=== PATIENT | female | born 1980 | race Caucasian/White ===

== ENCOUNTER 2023-06-12 12:59 | Outpatient (OUT) | payer OTHER, SELFPAY ==
[2023-06-12 14:11] LABS: HCG Quantitative <1 mIU/mL
[2023-06-12 14:24] LABS: Basophils Percent Auto 0.4 % (0.2-2.0); Eosinophils Absolute Auto 0.3 10^3/uL (0.0-0.7); Hematocrit 42.6 % (36.0-48.0); Hemoglobin 13.5 g/dL (12.0-16.0); Immature Granulocytes Abs Auto 0.05 10^3/uL (0.00-0.03); Immature Granulocytes Pct Auto 0.6 % (0.0-0.5); Lymphocytes Absolute Auto 2.1 10^3/uL (1.2-3.8); Lymphocytes Percent Auto 25.6 % (20.5-60.0); Mean Corpuscular HGB Conc 31.7 g/dL (29.9-35.2); Mean Corpuscular Hemoglobin 28.3 pg (26.7-34.0); Mean Corpuscular Volume 89.3 fL (81.0-99.0); Mean Platelet Volume 9.9 fL (9.5-13.5); Monocytes Absolute Auto 0.5 10^3/uL (0.3-0.8); Monocytes Percent Auto 6.3 % (1.7-12.0); Neutrophils Absolute Auto 5.2 10^3/uL (1.4-6.5); Neutrophils Percent Auto 63.1 % (43.0-75.0); Platelet Count 353 10^3/uL (150-450); Red Blood Count 4.77 10^6/uL (4.20-5.40); Red Cell Distribution Width 12.3 % (11.0-15.0); White Blood Count 8.3 10^3/uL (4.0-11.0)
[2023-06-12 15:03] LABS: Estimated Average Glucose 97 mg/dL
[2023-06-12 15:38] LABS: Free T4 1.13 ng/dL (0.76-1.46)
[2023-06-13 05:08] LABS: FSH 9.6 mIU/mL (.); Luteinizing Hormone(LH) 9.3 mIU/mL (.)
[2023-06-17 02:17] LABS: DHEA, Serum 302 ng/dL (31-701)
== END 2023-06-12 13:00 | disposition home or self-care (01) ==
PROVIDERS: Visit Provider Obstetrics & Gynecology
DX: E28.2 Polycystic ovarian syndrome (principal); N93.9 Abnormal uterine and vaginal bleeding, unspecified
CPT/HCPCS: 36415; 82626; 82627; 83001; 83002; 83036; 84439; 84443; 84702; 85025

== ENCOUNTER 2023-07-03 | Outpatient (REF) | payer OTHER, SELFPAY ==
--- OUTSIDE RECORDS SUMMARY | 2023-07-10 10:08 | XMS_ITS | CCD ---
Author Name Unknown Address [facility] [place] [address] Organization [facility] Care Team Providers Care Transition Coach Name Role Phone RAY ., DR TREVINO Admitting UnavailMichela Doll, DR TREVINO Attending Unavailabl e REQUEST, DR TRAORE LISTED Primary Care Unavaila rodolfo BELL ., DR TREVINO Consulting Unavailabl KARLA Jang Attending Unavailable Unavailable Primary Care Provider Unavailabl e Medications Current Medications Medication Drug Class(es) Dates Sig (Normalized) Sig (Original) Ethinyl Estradiol / Levonorgestrel (2 sources) Progestin, Estrogen, Progestin-containing Intrauterine Device take 1 tablet by mouth in the morning Setlakin 0.15-0.03 MG tablet Take 1 tablet by mouth in the morning. 0 Active Problems Problem Classification Problem Date Documented Date Episodic/Chronic Immunizations and screening for infectious disease (1 source) Encounter for screening for human papillomavirus (HPV); Translations: [ENC SCREENING HUMAN PAPILLOMAVIRUS] Onset: 06-29-2022 Episodic Other endocrine disorders (2 sources) Polycystic ovary syndrome; Translations: [Polycystic ovarian syndrome] 06-10-2023 Chronic Other female genital disorders (2 sources) Abnormal uterine bleeding; Translations: [Abnormal uterine and vaginal bleeding, unspecified] 06-06-2023 Chronic Other screening for suspected conditions (not mental disorders or infectious disease) (4 sources) Encounter for screening for malignant neoplasm of cervix; Translations: [ENC SCREENING MALIG NEOPLASM CERV] Onset: 06-26-2022 Episodic Results Test Name Value Interpretation Reference Range Facil ity PAP ACOG PANEL 2: 30 to 65on 07-02-2022 . . Normal [facility] Comment on above: Result Comment: Performed at: [facility] Performed By: #### [id number] #### [facility] [address] [place] [address] Dr. Rhoda Graves Age Gdln ACOG Testing 30-65 Normal [facility] Comment on above: Performed By: #### [id number] #### [facility] [address] [place] [address] Dr. Rhoda Graves DIAGNOSIS: Comment Normal [facility] Comment on above: Result Comment: NEGATIVE FOR INTRAEPITHE LIAL LESION OR MALIGNANCY. Performed at: [facility] Performed By: #### [id number] #### [facility] [address] [place] [address] Dr. Rhoda Graves HPV Aptima Negative Normal Negative [facility] Comment on above: Result Comment: This nucleic acid amplif ication test detects fourteen high-risk HPV types (16,18,31,33,35,39,45,51,52,56,58,59,66,68) without differentiation. Performed at: =G Performed By: #### [id number] #### [facility] [address] [place] [address] Dr. Rhoda Graves HPV Genotype Reflex Comment Normal [facility] Comment on above: Result Comment: Criteria not met, HPV Ge notype not performed. Performed at: [facility] Performed By: #### [id number] #### [facility] [address] [place] [address] Dr. Rhoda Graves Methodology: Comment Normal [facility] Comment on above: Result Comment: This liquid based ThinPr ep(R) pap test was screened with the use of an image guided system. Performed at: [facility] Performed By: #### [id number] #### [facility] [address] [place] [address] Dr. Rhoda Graves Note: Comment Normal [facility] Comment on above: Result Comment: The Pap smear is a scree christina test designed to aid in the detection of premalignant and malignant conditions of the uterine cervix. It is not a diagnostic procedure and should not be used as the sole means of detecting cervical cancer. Both false-positive and false-negative reports do occur. . Performed at: [facility] Performed By: #### [id number] #### [facility] [address] [place] [address] Dr. Rhoda Graves Performed by: Comment Normal [facility] Comment on above: Result Comment: Maricel Lazote chnologist (ASCP) Performed at: [facility] Performed By: #### [id number] #### [facility] [address] [address] [address] Rhoda Graves Specimen adequacy: Comment Normal [facility] Comment on above: Result Comment: Satisfactory for evaluat ion. Endocervical and/or squamous metaplastic cells (endocervical component) are present. Performed at: [facility] Performed By: #### [id number] #### [facility] [address] [address] [address] Rhoda Graves Cytology Cervical or vaginal smear or scraping studyon 06-26-2022 [facility] Vital Signs Date Time Vital Sign Value Performing Clinician Faci lity 06-10-2023 16:31-0500 Body mass index (BMI) [Ratio] 25.55 kg/m2 Karla Steven DO Work Phone: [facility] 06-10-2023 16:31-0500 Body weight 78.47 kg Karla Steven DO Work Phone: [facility] 06-10-2023 16:31-0500 Diastolic blood pressure 80 mm[Hg] Karla Steven DO Work Phone: [facility] 06-10-2023 16:31-0500 Systolic blood pressure 138 mm[Hg] Karla Steven DO Work Phone: [facility] Healthcare Encounters Encounter Date Encounter Type Care Provider Facility Start: 06-10-2023 End: 06-10-2023 ambulatory KARLA STEVEN Not Available Start: 06-10-2023 End: 06-10-2023 Office outpatient visit 15 minutes Karla Steven DO Work Phone: [facility] Comment on above: Abnormal uterine ble eding (AUB); PCOS (polycystic ovarian syndrome) Start: 06-26-2022 End: 06-26-[address] BELINDA BELL . Facility: Procedures Date Procedure Procedure Detail Performing Clinician Start: 06-26-2022 Cytp cerv/vag auto 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 Mary MARIE Work Phone: Plan of Treatment Date Care Activity Detail Author Start: 08-07-2023 End: 08-07-2023 Patient encounter procedure 08/07/2023 4:00 PM EDT Office Visit [facility] [address] [place] [address] [place] [id number] Karla Harris, DO [address] [place], [place] [id number] [facility] Start: 07-03-2023 End: 07-03-2023 Patient encounter procedure 07/03/2023 3:30 PM EST Procedure Visit [facility] [address] [place], [place] [address] [address] Karla Harris, DO [address] [place], [place] [id number] [facility] Start: 07-03-2023 End: 07-03-2023 Professional / ancillary services management 07/03/2023 2:30 PM EST Ancillary Procedure [facility] [address] [facility] [place] [address] [facility] Start: 06-10-2023 End: 06-10-2024 DHEA DHEA Lab Routine PCOS (polycystic ovarian syndrome) Expected: 06/10/2023 (Approximate), Expires: 06/10/2024 [facility] Comment on above: Expected: 06/10/2023 (Approximate), Expires: 06/10/2024 Start: 06-10-2023 End: 06-10-2024 US for US PELVIS-TRANSVAG IF INDICATED Imaging Routine PCOS (polycystic ovarian syndrome) Expected: 06/10/2023 (Approximate), Expires: 06/10/2024 [facility] Comment on above: Expected: 06/10/2023 (Approximate), Expires: 06/10/2024 CBC W Auto Different ial panel - Blood CBC and differential Lab Routine PCOS (polycystic ovarian syndrome) Ordered: 06/10/2023 [facility] Comment on above: Ordered: 06/10/2023 DHEA-sulfate DHEA-sulfate Lab Routine PCOS (polycystic ovarian syndrome) Ordered: 06/10/2023 [facility] Comment on above: Ordered: 06/10/2023 Follicle stimulating hormone Follicle stimulating hormone Lab Routine PCOS (polycystic ovarian syndrome) Ordered: 06/10/2023 [facility] Comment on above: Ordered: 06/10/2023 hCG, quantitative, hCG, quantitative, Lab Routine PCOS (polycystic ovarian syndrome) Ordered: 06/10/2023 [facility] Work Phone: Comment on above: Ordered: 06/10/2023 Hemoglobin A1c measurement Hemoglobin A1c Lab Routine Abnormal uterine bleeding (AUB) PCOS (polycystic ovarian syndrome) Ordered: 06/10/2023 [facility] Comment on above: Ordered: 06/10/2023 Luteinizing hormone Luteinizing hormone Lab Routine PCOS (polycystic ovarian syndrome) Ordered: 06/10/2023 [facility] Comment on above: Ordered: 06/10/2023 Thyrotropin [Units/volume] in Serum or Plasma TSH Lab Routine PCOS (polycystic ovarian syndrome) Ordered: 06/10/2023 [facility] Comment on above: Ordered: 06/10/2023 Thyroxine (T4) free [Mass/volume] in Serum or Plasma T4, free Lab Routine PCOS (polycystic ovarian syndrome) Ordered: 06/10/2023 [facility] Comment on above: Ordered: 06/10/2023 Payers Date Payer Category Payer Unknown [employer] [id number] 2023-Present [phone] [address] [address] [place] [address] [id number] 1980 Unknown [id number] 1980 Unknown [id number] 1961 Unknown [id number] Social History Date Type Detail Facility Start: 05-20-2023 Tobacco smoking stat [facility] Never smoked tobacco [facility] Start: 06-10-2023 Alcohol intake Current drinke r of alcohol (finding) [facility] Start: 06-10-2023 History of Social function [facility] Start: 06-10-2023 Tobacco use panel [facility] Start: 05-20-2023 Alcohol Comment Occasional alcohol u se [facility] Start: 1980 Sex Assigned At Not on file [facility] History of Present illness Narrative 06-10-2023 Lachelle Mercedeschristin, AJITH - 06/10/2023 3:50 PM EST Note Date & Type Note Facility 06-10-2023 History of Presen t illness Narrative Reason for Appointment: Patient ID: Prema oJrge is a 42 y.o. female who presents for Irregular cycles Patient presents today for Consult appointment. Current Medications: has a current medication list which includes the following prescription(s): setlakin. Medical History: Active Ambulatory Problems Diagnosis Date Noted No Active Ambulatory Problems Resolved Ambulatory Problems Diagnosis Date Noted No Resolved Ambulatory Problems Past Medical History: Diagnosis Date Abnormal mammogram of right breast BMI 25.0-25.9,adult Breast cancer screening by mammogram Encounter for gynecological examination (general) (routine) without abnormal findings Family History Problem Relation Name Age of Onset Hypertension Father Hyperlipidemia Father Social History Tobacco Use Smoking status: Never Smokeless tobacco: Not on file Substance Use Topics Alcohol use: Yes Comment: Occasional alcohol use Drug use: Never History reviewed. No pertinent surgical history. No Known Allergies Review of Systems: Review of Systems All other systems reviewed and are negative. Objective Physical Exam Constitutional: Appearance: Normal appearance. She is well-developed. Cardiovascular: Rate and Rhythm: Normal rate and regular rhythm. Pulmonary: Effort: Pulmonary effort is normal. Breath sounds: Normal breath sounds. Abdominal: General: Bowel sounds are normal. There is no distension. Palpations: Abdomen is soft. Tenderness: There is no abdominal tenderness. There is no guarding or rebound. Musculoskeletal: General: No swelling. Normal range of motion. Right lower leg: No edema. Left lower leg: No edema. Neurological: Mental Status: She is alert and oriented to person, place, and time. Skin: General: Skin is warm and dry. Psychiatric: Mood and Affect: Mood normal. Behavior: Behavior normal. Vitals and nursing note reviewed. Exam conducted with a campaign coordinator present. Vitals: Estimated body mass index is 25.55 kg/m as calculated from the following: Height as of 06/26/22: 5' 9 . Weight as of this encounter: 173 lb. BP: 138/80 Patient's last menstrual period was 06/07/2023 (exact date). Assessment/Plan Encounter Diagnoses Name Primary? Abnormal uterine bleeding (AUB) PCOS (polycystic ovarian syndrome) Patient presents for appointment to discuss abnormal uterine bleeding. Discussed patient obtaining US and labs. Patient to have endometrial biopsy obtained as well. Patient to schedule appointment prior to leaving office to setup US and Endo Bx. Will discuss further management after results are back. Documented by Lachelle Vincent LPN on behalf of: Karla Harris DO documented in this encounter [facility] Evaluation note Note Date & Type Note Facility Evaluation note Diagnosis Abnormal uterine bleeding (AUB) PCOS (polycystic ovarian syndrome) Polycystic ovaries documented in this encounter [facility] Summary Purpose Family History No Family History Records FoundNo Family History Records Found Advance Directives No Advanced Directives Records FoundNo Advanced Directives Records Found Additional Source Comments INFORMATION SOURCE (unrecogn ized section and content) DATE CREATED AUTHOR 07/03/2022 [facility] DATE CREATED AUTHOR AUTHOR'S ORGANIZ ATION 06/11/2023 [facility] [employer] Reason for Visit (unrecogniz ed section and content) Reason Comments Irregular cycles FOR RECORDS PERTAINING TO PATIENTS WHO ARE OR HAVE BEEN ENROLLED IN A CHEMICAL DEPENDENCY/SUBSTANCEABUSE PROGRAM, SOME INFORMATION MAY BE OMITTED. This clinical summary was aggregated from multiple sources. Caution should be exercised in using it in the provision of clinical care. This summary normalizes information from multiple sources, and as a consequence, information in this document may materially change the coding, format and clinical context of patient data. In addition, data may be omitted in some cases. CLINICAL DECISIONS SHOULD BE BASED ON THE PRIMARY CLINICAL RECORDS. [employer] provides no warranty or guarantee of the accuracy or completeness of information in this document.
== END 2023-07-03 00:01 ==
LOC: LAB
PROVIDERS: Visit Provider Obstetrics & Gynecology
DX: N92.6 Irregular menstruation, unspecified (principal)
CPT/HCPCS: 88305

== ENCOUNTER 2023-07-03 14:18 | Outpatient (OUT) | payer OTHER, SELFPAY ==
--- NOTE | 2023-07-03 14:26 | US_ITS ---
[address] [address] Patient Name: PREMA MOREIRA MRN: [id number] date: 1980 Sex: F Assigned Patient Location: [facility] Current Patient Location: [facility] Accession/Order Number: [id number] Exam Date: 07/03/2023 14:25 Report Date: 07/03/2023 15:23 At the request of: KARLA COLEMAN Procedure: US pelvis w/ transvaginal EXAMINATION: US pelvis w/ transvaginal HISTORY: HEAVY BLEEDING AND IRREGULAR PERIODS COMPARISON: No relevant comparison available. TECHNIQUE: Transabdominal and/or transvaginal sonographic examination was performed as indicated by examination type. FINDINGS: UTERUS: Slightly heterogeneous echotexture. Normal size and contour. Uterus size: 7. 63.6 x 4.5 cm ENDOMETRIUM: Normal homogeneous appearance. Endometrial thickness: 5 mm RIGHT OVARY: Normal size and appearance. Duplex Doppler demonstrates normal waveform and flow; resistive index 0.5. Ovary size: 2.3 x 1.9 x 2.6 cm LEFT OVARY: Contains a 3.6 cm complex cysts versus hypoechoic mass. Duplex Doppler demonstrates normal waveform and flow; resistive index 0.6. Ovary size: 2.7 x 2.4 x 3.6 cm CUL-DE-SAC: Unremarkable. No significant free fluid. BLADDER: Unremarkable. OTHER: None. US/US pelvis w/ transvaginal IMPRESSION: 1. Slightly heterogeneous uterine myometrium of questionable clinical significance. 2. Normal appearance of endometrium. 3. Left ovarian complex cyst versus mass. Complex/hemorrhagic cyst is favored. Consider follow-up ultrasound evaluation in 6 weeks to document regression. Electronically authenticated by: TICO SIMS Date: 07/03/2023 15:23
== END 2023-07-03 14:19 | disposition home or self-care (01) ==
LOC: NOMS 14:18
PROVIDERS: Visit Provider Obstetrics & Gynecology
DX: E28.2 Polycystic ovarian syndrome (principal)
CPT/HCPCS: 76830; 76856

== ENCOUNTER 2023-08-07 20:12 | Outpatient (REF) | payer OTHER, SELFPAY ==
--- OUTSIDE RECORDS SUMMARY | 2023-08-07 20:16 | XMS_ITS | CCD ---
Author Organization [facility] Care Team Providers Care Territory Manager Name Role Phone RAY ., DR TREVINO Admitting Millicent Doll, DR TREVINO Attending Unavailabl e REQUEST, DR TRAORE LISTED Primary Care Unavaila ble RAY Doll, DR TREVINO Consulting Unavailabl e Unavailable Primary Care Provider KARLA Adams Attending Unavailable KARLA HARRIS Attending Unavailable Medications Current Medications Medication Drug Class(es) Dates [...] to 63on 07-02-2022 . . Normal [facility] Comment on above: Result Comment: Performed at: [facility] Performed By: #### [id number] #### [facility] [address] [place] [address] Dr. Rhoda Graves Age Gdln ACOG Testing 30-65 Normal [facility] Comment on above: Performed By: #### [id number] #### [facility] [address] [address] [address] Rhoda Graves DIAGNOSIS: Comment Normal [facility] Comment on above: Result Comment: NEGATIVE FOR INTRAEPITHE LIAL LESION OR MALIGNANCY. Performed at: [facility] Performed By: #### [id number] #### [facility] [address] [place] [address] Dr. Rhoda Graves HPV Aptima Negative Normal Negative [facility] Comment on above: Result Comment: This nucleic acid amplif ication test detects fourteen high-risk HPV types (16,18,31,33,35,39,45,51,52,56,58,59,66,68) without differentiation. Performed at: =G Performed By: #### [id number] #### [facility] [address] [place] [address] Dr. Rhoda Graves HPV Genotype Reflex Comment Normal [facility] Comment on above: Result Comment: Criteria not met, HPV Ge notype not performed. Performed at: [facility] Performed By: #### [id number] #### [facility] [address] [place] [address] Dr. Rhoda Graves Methodology: Comment Normal [facility] Comment on above: Result Comment: This liquid based ThinPr ep(R) pap test was screened with the use of an image guided system. Performed at: [facility] Performed By: #### [id number] #### [facility] [address] [place] [address] Dr. Rhoda Graves Note: Comment Normal [facility] Comment on above: Result Comment: The Pap smear is a scree christina test designed to aid in the detection of premalignant and malignant conditions of the uterine cervix. It is not a diagnostic procedure and should not be used as the sole means of detecting cervical cancer. Both false-positive and false-negative reports do occur. . Performed at: [facility] Performed By: #### [id number] #### [facility] [address] [address] [address] Rhoda Graves Performed by: Comment Normal [facility] Comment on above: Result Comment: Olu Herrera Cytote chnologist (ASCP) Performed at: [facility] Performed By: #### [id number] #### [facility] [address] [address] [address] Rhoda Graves Specimen adequacy: Comment Normal [facility] Comment on above: Result Comment: Satisfactory for evaluat ion. Endocervical and/or squamous metaplastic cells (endocervical component) are present. Performed at: [facility] Performed By: #### [id number] #### [facility] [address] [address] [address] Rhoda Graves Cytology Cervical or vaginal smear or scraping studyon 06-26-2022 [facility] Healthcar e Vital Signs Date Time Vital Sign Value Performing Clinician Faci lity 06-10-2023 16:31-0500 Body mass index (BMI) [Ratio] 25.55 kg/m2 Karla Steven DO Work Phone: [facility] Healthcare 06-10-2023 16:31-0500 Body weight 78.47 kg Karla Steven DO Work Phone: [facility] 06-10-2023 16:31-0500 Diastolic blood pressure 80 mm[Hg] Karla Steven DO Work Phone: [facility] 06-10-2023 16:31-0500 Systolic blood pressure 138 mm[Hg] Karla Steven DO Work Phone: [facility] Encounters Encounter Date Encounter Type Care Provider Facility Start: 07-03-2023 End: 07-03-2023 ambulatory KARLA STEVEN Not Available Start: 06-10-2023 End: 06-10-2023 ambulatory KARLA STEVEN Not Available Start: 06-10-2023 End: 06-10-2023 Office outpatient visit 15 minutes Karla Steven DO Work Phone: [facility] Comment on above: Abnormal uterine [...] procedure 08/07/2023 4:00 PM EDT Office Visit [facility] [address] [place] [address] Karla Harris, DO [address], [place] [id number] [facility] Start: 07-03-2023 End: 07-03-2023 Patient encounter procedure 07/03/2023 3:30 PM EST Procedure Visit [facility] [address] [address] Karla Harris, DO [address], [facility] Start: 07-03-2023 End: 07-03-2023 Professional / ancillary services management 07/03/2023 2:30 PM EST Ancillary Procedure [facility] [address] [address] [facility] Start: 06-10-2023 End: 06-10-2024 DHEA DHEA Lab Routine PCOS (polycystic ovarian syndrome) Expected: 06/10/2023 (Approximate), Expires: 06/10/2024 [facility] Comment on above: Expected: 06/10/2023 (Approximate), Expires: 06/10/2024 Start: 06-10-2023 End: 06-10-2024 US for US PELVIS-TRANSVAG IF INDICATED Imaging Routine PCOS (polycystic ovarian syndrome) Expected: 06/10/2023 (Approximate), Expires: 06/10/2024 [facility] Comment on above: Expected: 06/10/2023 (Approximate), Expires: 06/10/2024 CBC W Auto Different ial panel - Blood CBC and differential Lab Routine PCOS (polycystic ovarian syndrome) Ordered: 06/10/2023 [facility] Comment on above: Ordered: 06/10/2023 DHEA-sulfate DHEA-sulfate Lab Routine PCOS (polycystic ovarian syndrome) Ordered: 06/10/2023 [facility] Comment on above: Ordered: 06/10/2023 Follicle stimulating hormone Follicle stimulating hormone Lab Routine PCOS (polycystic ovarian syndrome) Ordered: 06/10/2023 [facility] Comment on above: Ordered: 06/10/2023 hCG, quantitative, hCG, quantitative, Lab Routine PCOS (polycystic ovarian syndrome) Ordered: 06/10/2023 [facility] Work Phone: Comment on above: Ordered: 06/10/2023 Hemoglobin A1c measurement Hemoglobin A1c Lab Routine Abnormal uterine bleeding (AUB) PCOS (polycystic ovarian syndrome) Ordered: 06/10/2023 [facility] Comment on above: Ordered: 06/10/2023 Luteinizing hormone Luteinizing hormone Lab Routine PCOS (polycystic ovarian syndrome) Ordered: 06/10/2023 [facility] Comment on above: Ordered: 06/10/2023 Thyrotropin [Units/volume] in Serum or Plasma TSH Lab Routine PCOS (polycystic ovarian syndrome) Ordered: 06/10/2023 [facility] Comment on above: Ordered: 06/10/2023 Thyroxine (T4) free [Mass/volume] in Serum or Plasma T4, free Lab Routine PCOS (polycystic ovarian syndrome) Ordered: 06/10/2023 [facility] Comment on above: Ordered: 06/10/2023 Payers Date Payer Category Payer Unknown [employer] [id number] 2023-Present [phone] [address] [address] [place] [address] [id number] 1980 Unknown [id number] 1978 Unknown [id number] 1978 Unknown [id number] 1959 Unknown [id number] Social History Date Type Detail Facility Start: 05-20-[address] [facility] Never smoked tobacco [facility] Start: 06-10-2023 Alcohol intake Current drinke r of alcohol (finding) [facility] Start: 06-10-2023 History of Social function [facility] Start: 06-10-2023 Tobacco use panel [facility] Start: 05-20-2023 Alcohol Comment Occasional alcohol u se [facility] Start: 1980 Sex Assigned At Not on file [facility] History of Present illness Narrative 06-10-2023 Lachelle Vincent, CORRUGATED FASTENER DRIVER - 06/10/2023 3:50 PM EST Note Date & Type Note Facility 06-10-2023 History of Presen t illness Narrative Reason for Appointment: Patient ID: Prema Jorge is a 42 y.o. female who presents [...] nursing note reviewed. Exam conducted with a anesthesia director present. Vitals: Estimated body mass index is [...] Karla Harris DO documented in this encounter [facility] Evaluation note Note Date & Type [...] content) DATE CREATED AUTHOR 07/03/2022 [facility] DATE CREATED AUTHOR AUTHOR'S ORGANIZ ATION 07/11/2023 [facility] EPIC Reason for Visit (unrecogniz [...] BE BASED ON THE PRIMARY CLINICAL RECORDS. [facility] [employer] provides no warranty or guarantee of the accuracy or completeness of information in this document.
[2023-08-13 19:07] LABS: Age Gdln ACOG Testing Note (.); HPV Aptima Negative (Negative); IGP, Aptima HPV, rfx 16/18,45 Note (.)
== END 2023-08-07 20:13 | disposition home or self-care (01) ==
LOC: LAB 20:12
PROVIDERS: Visit Provider Obstetrics & Gynecology
DX: Z01.419 Encounter for gynecological examination (general) (routine) without abnormal findings (principal)
CPT/HCPCS: 87624; G0145

== ENCOUNTER 2023-08-14 14:18 | Outpatient (OUT) | payer OTHER, SELFPAY ==
--- NOTE | 2023-08-14 14:19 | US_ITS ---
The [address] [address] Patient Name: PREMA MOREIRA MRN: [id number] date: 1980 Sex: F Assigned Patient Location: [facility] Current Patient Location: [facility] Accession/Order Number: [id number] Exam Date: 08/14/2023 14:19 Report Date: 08/14/2023 15:29 At the request of: KARLA COLEMAN Procedure: US pelvis w/ transvaginal EXAMINATION: US pelvis w/ transvaginal HISTORY: LEFT OVARIAN CYST follow-up COMPARISON: Ultrasound pelvis 07/03/2023 TECHNIQUE: Transabdominal and/or transvaginal sonographic examination was performed as indicated by examination type. FINDINGS: UTERUS: Normal size and appearance. Uterus size: 8.1 x 3.4 x 4.2 cm ENDOMETRIUM: Small 5 x 3 x 2 mm hypoechoic area at anterior junction of endometrium and myometrium, likely blood products since it is new compared to prior study. Endometrial thickness: 7 mm RIGHT OVARY: Normal size and appearance. Duplex Doppler demonstrates normal waveform and flow; resistive index 0.6. Ovary size: 2.6 x 1.6 x 2.4 cm LEFT OVARY: Interval increase in size of the hypoechoic avascular lesion, now 3.3 x 3.1 x 2.2 cm, which could represent complex hemorrhagic cyst or possibly an endometrioma. 2 additional benign-appearing cysts are now present within the ovary, 3.7 cm and 3.3 cm in diameter. Duplex Doppler demonstrates normal waveform and flow; resistive index 0.6. Ovary size: 5.6 x 3.9 x 5.2 cm CUL-DE-SAC: Unremarkable. No significant free fluid. BLADDER: Unremarkable. OTHER: None. US/US pelvis w/ transvaginal IMPRESSION: 1. Interval increase in size of a complex avascular structure within the left ovary suspected represent a hemorrhagic cyst or possible endometrioma. This measures 3.3 cm in diameter on today's study (2.2 cm in maximum diameter on prior study, although this was inadvertently reported as 3.6 cm). Additional follow-up in 6 weeks is recommended to document change versus regression. Electronically authenticated by: TICO SIMS Date: 08/14/2023 15:29
== END 2023-08-14 14:19 | disposition home or self-care (01) ==
LOC: NOMS 14:18
PROVIDERS: Visit Provider Obstetrics & Gynecology
DX: N83.292 Other ovarian cyst, left side (principal)
CPT/HCPCS: 76830; 76856

== ENCOUNTER 2023-11-12 13:21 | Emergency (ER) | payer OTHER, SELFPAY ==
[2023-11-12 13:23] VITALS: BP 147/95; PULSE 101; TEMP 36.7; O2SAT 96; BMI 25.1
--- NOTE | 2023-11-12 13:31 | CT_ITS ---
[address] [address] Patient Name: PREMA MOREIRA MRN: [id number] date: 1980 Sex: F Assigned Patient Location: ER Current Patient Location: Accession/Order Number: [id number] Exam Date: 11/12/2023 14:04 Report Date: 11/12/2023 14:47 At the request of: MARIELY CEDENO Procedure: CT abdomen pelvis w con EXAMINATION: CT abdomen pelvis w con HISTORY: Abdominal pain COMPARISON: No relevant comparison available. TECHNIQUE: Axial, Coronal, and Sagittal images were obtained without and/or with IV contrast as indicated by examination type. Dose reduction techniques were achieved by using automated exposure control and/or adjustment of mA and/or kV according to patient size and/or use of iterative reconstruction technique. FINDINGS: LUNG BASES: Atelectasis versus partial consolidation within posterior right lung base; trace amount within left lung base. LIVER: No enlargement, atrophy, suspicious density, or significant focal lesion. BILIARY: No dilatation or calcification. PANCREAS: No lesion, fluid collection, or abnormal duct dilatation. SPLEEN: No enlargement or focal lesion. ADRENALS: No mass or enlargement. KIDNEYS: Incidental left renal cyst. No mass, obstruction, or calcification. BOWEL/MESENTERY: Fluid-filled loops of small and large bowel without abnormal dilation. Scattered areas of mild wall thickening; lack of distention versus mild inflammatory changes. Fluid-filled appendix without convincing appendicitis. AORTA/VASCULAR: No aneurysm or dissection. RETROPERITONEUM: No mass or adenopathy. LYMPH NODES: No adenopathy. URINARY BLADDER: No visible focal wall thickening, lesion, or calculus. PELVIC ORGANS: Fluid-filled cystic structure within anterior midline pelvis 8.5 x 8.2 x 5.9 cm, likely the previously seen right ovarian cyst. Within the right adnexa is heterogeneous irregular soft tissue with mixed enhancement and what appear to be congested contrast-filled vessels suspicious for ovarian torsion or salpingitis. ABDOMINAL WALL: No mass or hernia. BONES: No bony lesion or fracture. OTHER: Negative. CT/CT abdomen pelvis w con IMPRESSION: 1. Large fluid-filled cystic structure within anterior midline pelvis suspected to be interval enlargement of previously seen right ovarian cyst, now 8.5 cm in diameter. Given the heterogeneous soft tissue within the right adnexa and what appear to be congested vessels, I suspect ovarian torsion or salpingitis.Ultrasound evaluation is recommended. 2. Fluid-filled loops of bowel are suspected to be in response to changes within the pelvis rather than enteritis or mild colitis. 3. Lung base findings are suspected be due to atelectasis rather than infectious infiltrates. Findings discussed with Dr. Jacome via telephone at 2:45 PM. Electronically authenticated by: TICO SIMS Date: 11/12/2023 14:47
--- NOTE | 2023-11-12 13:32 | ED_ITS ---
HPI HPI - General Adult General Chief complaint: Abdominal Pain Stated complaint: ABDOMINAL PAIN Time Seen by Provider: 11/12/23 13:22 Source: patient Mode of arrival: walk-in History of Present Illness HPI narrative: Patient is a 43-year-old female who presents to the emergency department for the evaluation of abdominal pain that began yesterday. She reports multiple areas of the abdomen that are affected. She has not had any objective fever but reports hot and cold chills yesterday. She reports decreased appetite. She has had no nausea or vomiting. No diarrhea. She had a normal bowel movement today. No urinary symptoms. She denies any previous abdominal surgeries. She does not believe she is but states there is a chance. She states her primary concern was to make sure that she does not have appendicitis. Related Data Previous Rx's ?Medication ?Instructions ?Recorded cephalexin 500 mg capsule 500 mg PO Q8H 5 days #15 caps 11/12/23 hydrocodone 5 mg-acetaminophen 325 1 tab PO Q6H PRN pain 5 days #20 11/12/23 mg tablet tabs ketorolac 10 mg tablet 10 mg PO TID PRN pain #10 tabs 11/12/23 ondansetron 4 mg disintegrating 4 mg PO Q6H PRN nausea and 11/12/23 tablet vomiting #12 tabs Allergies Allergy/AdvReac Type Severity Reaction Status Date / Time No Known Drug Allergies Allergy Verified 11/12/23 13:27 Opioid HPI Opioid Management Most Recent Opioid Data: Last JUL Pain Assessment 11/12/23 13:58 Review of Systems ROS Constitutional Reports: chills; Denies: fever Ears, nose, mouth, and throat Denies: throat pain or nasal congestion Cardiovascular Denies: chest pain Respiratory Denies: shortness of breath or cough Gastrointestinal Reports: abdominal pain; Denies: nausea, vomiting or diarrhea Genitourinary Denies: painful urination Musculoskeletal Denies: back pain Integumentary/Breast Denies: rash Hematologic/Lymphatic Denies: easy bruising or easy bleeding Exam Narrative Exam Narrative: Gen.: Awake, alert, in no distress Head: Normocephalic, atraumatic ENT: Moist mucous membranes Respiratory: No respiratory distress, lungs clear bilaterally Cardio: Regular rate and rhythm Gastrointestinal: Abdomen is soft, nondistended and Tender to palpation in the right upper quadrant, left lower quadrant, umbilical abdomen and right lower quadrant with no point tenderness. No rebound Extremities: Moves extremities equally Psych: Normal mood and affect Neuro: No focal neuro deficit Skin: Warm, dry, intact Constitutional Vital Signs, click to edit/add: Last Vital Signs Temp 98.0 F 11/12/23 13:23 Pulse 101 H 11/12/23 13:23 Resp 18 11/12/23 13:23 BP 147/95 H 11/12/23 13:23 Pulse Ox 96 11/12/23 13:23 O2 Del Method Room Air 11/12/23 13:23 Course Vital Signs Vital signs: Vital Signs Temperature 98.0 F 11/12/23 13:23 Pulse Rate 101 H 11/12/23 13:23 Respiratory Rate 18 11/12/23 13:23 Blood Pressure 147/95 H 11/12/23 13:23 Pulse Oximetry 96 11/12/23 13:23 Oxygen Delivery Method Room Air 11/12/23 13:23 Temperature 98.0 F 11/12/23 13:23 Pulse Rate 101 H 11/12/23 13:23 Respiratory Rate 18 11/12/23 13:23 Blood Pressure 147/95 H 11/12/23 13:23 Pulse Oximetry 96 11/12/23 13:23 Oxygen Delivery Method Room Air 11/12/23 13:23 Medical Decision Making MDM Narrative Medical decision making narrative: Patient was medicated with IV Toradol and Levsin with excellent pain control. She does have mild leukocytosis and was found to have a UTI. The remainder of her labs are unremarkable and CT shows a large cystic structure from the right adnexa, radiologist contacted attending physician to relay these results stating that he was concerned the patient may have ovarian torsion versus salpingitis. There is fluid-filled bowel that is felt to be less likely to be enteritis versus colitis and more likely to be pressure from the cystic structure per the radiologist, I discussed this with him directly. Ultrasound shows no evidence of torsion but the patient has a 7 cm cystic mass versus hypovascular mass from the right ovary. I discussed this with Dr. 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 Patient placed on antibiotics for UTI, nausea medication and a short course of analgesics until she would be seen in the office for further evaluation and treatment per gynecology. She is stable at time of reevaluation by attending physician. Return to the ER if symptoms change or worsen SHARED APC VISIT, PHYSICIAN ATTESTATION: [id number] I performed a substantive part of the MDM during the patient?s E/M visit. I personally evaluated and examined the patient. I personally made or approved the documented management plan and acknowledge its risk of complications. Medical Records Medical records reviewed: Yes I reviewed the patient's medical records Lab Data Lab results reviewed: Yes I reviewed the patient's lab results Labs: Lab Results 11/12/23 11/12/23 Range/Units 13:30 14:09 WBC 15.0 H (4.0-11.0) 10^3/uL RBC 4.97 (4.20-5.40) 10^6/uL Hgb 14.2 (12.0-16.0) g/dL Hct 43.9 (36.0-48.0) % MCV 88.3 (81.0-99.0) fL MCH 28.6 (26.7-34.0) pg MCHC 32.3 (29.9-35.2) g/dL RDW 13.2 (11.0-15.0) % Plt Count 277 (150-450) 10^3/uL MPV 10.0 (9.5-13.5) fL Neut % (Auto) 85.1 H (43.0-75.0) % Lymph % (Auto) 8.8 L (20.5-60.0) % [place]he % (Auto) 4.9 (1.7-12.0) % Eos % (Auto) 0.2 L (0.9-7.0) % Baso % (Auto) 0.3 (0.2-2.0) % Neut # (Auto) 12.8 H (1.4-6.5) 10^3/uL Lymph # (Auto) 1.3 (1.2-3.8) 10^3/uL Ashe # (Auto) 0.7 (0.3-0.8) 10^3/uL Eos # (Auto) 0.0 (0.0-0.7) 10^3/uL Baso # (Auto) 0.0 (0.0-0.1) 10^3/uL Abs Immat Gran (auto) 0.11 H (0.00-0.03) 10^3/uL Imm/Tot Granulo (auto) 0.7 H (0.0-0.5) % Sodium 135 L (136-145) mmol/L Potassium 3.3 L (3.5-5.1) mmol/L Chloride 97 L (98-107) mmol/L Carbon Dioxide 26.8 (21.0-32.0) mmol/L Anion Gap 14.5 BUN 11.0 (7.0-18.0) mg/dL Creatinine 0.65 (0.55-1.02) mg/dL Est GFR ( Amer) >60 (>=60) Est GFR (Non-Af Amer) >60 (>=60) BUN/Creatinine Ratio 16.9 Glucose 119 H (74-106) mg/dL Lactate 1.1 (0.4-2.0) mmol/L Calcium 8.9 (8.5-10.1) mg/dL Total Bilirubin 1.0 (0.2-1.0) mg/dL AST 11 L (15-37) U/L ALT 28 (14-59) U/L Alkaline Phosphatase 94 (46-116) U/L Total Protein 8.0 (6.4-8.2) g/dL Albumin 3.6 (3.4-5.0) g/dL Globulin 4.4 g/dL Albumin/Globulin Ratio 0.8 Lipase 68.0 (16.0-77.0) U/L Serum HCG, Qual Negative (NEGATIVE) Urine Color Lt. yellow (YELLOW) Urine Clarity Clear (CLEAR) Urine pH 6.0 (5.0-9.0) Ur Specific [place] 1.010 (1.005-1.025) Urine Protein Negative (NEG/TRACE) mg/dL Urine Glucose (UA) Negative (NEGATIVE) mg/dL Urine Ketones 15 A (NEGATIVE) mg/dL Urine Occult Blood Small A (NEGATIVE) Urine Nitrite Negative (NEGATIVE) Urine Bilirubin Negative (NEGATIVE) Urine Urobilinogen 0.2 (0.2-1.0) EU/dL Ur Leukocyte Esterase Moderate A (NEGATIVE) Urine RBC 2-5 A (0-2) #/HPF Urine WBC 10-20 A (NONE SEEN) #/HPF Ur Squamous Epith Cells Few A (NONE/RARE) #/LPF Urine Crystals None seen (None Seen) #/HPF Urine Bacteria Trace A (NONE SEEN) #/HPF Urine Casts None seen (NONE SEEN) #/LPF Urine Mucus None seen (NONE SEEN) Ur Culture Indicated? Yes Imaging Data CT scan - abdomen: Attestation: I have reviewed the pertinent imaging results. Radiologist's impression: ITS Impressions Abdomen/Pelvis CT 11/12/23 13:31 IMPRESSION: 1. Large fluid-filled cystic structure within anterior midline pelvis suspected to be interval enlargement of previously seen right ovarian cyst, now 8.5 cm in diameter. Given the heterogeneous soft tissue within the right adnexa and what appear to be congested vessels, I suspect ovarian torsion or salpingitis.Ultrasound evaluation is recommended. 2. Fluid-filled loops of bowel are suspected to be in response to changes within the pelvis rather than enteritis or mild colitis. 3. Lung base findings are suspected be due to atelectasis rather than infectious infiltrates. Findings discussed with Dr. Jacome via telephone at 2:45 PM. Electronically authenticated by: TICO SIMS Date: 11/12/2023 14:47 Transvaginal US 11/12/23 14:46 IMPRESSION: 1. No evidence of ovarian torsion, however, there is a large complex cystic structure versus hypovascular mass arising from within the right ovary up to at least 7.0 cm in size. 2. Unremarkable uterus and left ovary. Electronically authenticated by: TICO SIMS Date: 11/12/2023 15:58 Discharge Plan Discharge Stand Alone Forms: Portal Instructions Chief Complaint: Abdominal Pain Clinical Impression: Abdominal pain, UTI (urinary tract infection), Ovarian cyst Patient Disposition: Home, Self-Care Time of Disposition Decision: 16:13 Condition: Good Prescriptions / Home Meds: New cephalexin 500 mg capsule 500 mg PO Q8H 5 Days Qty: 15 0RF hydrocodone-acetaminophen 5-325 mg tablet 1 tab PO Q6H PRN (Reason: pain) 5 Days Qty: 20 0RF Rx Instructions: DX R10.9 ketorolac 10 mg tablet 10 mg PO TID PRN (Reason: pain) Qty: 10 0RF ondansetron 4 mg tablet,disintegrating 4 mg PO Q6H PRN (Reason: nausea and vomiting) Qty: 12 0RF Print Language: Hebrew Instructions: Ovarian Cyst (ED), Urinary Tract Infection in Women (ED), Acute Abdominal Pain (ED) Referrals: Physician,Non-Staff, MD [Primary Care Provider] - 1 week
[2023-11-12 13:41] LABS: Basophils Percent Auto 0.3 % (0.2-2.0); Eosinophils Percent Auto 0.2 % (0.9-7.0); Hematocrit 43.9 % (36.0-48.0); Hemoglobin 14.2 g/dL (12.0-16.0); Immature Granulocytes Abs Auto 0.11 10^3/uL (0.00-0.03); Immature Granulocytes Pct Auto 0.7 % (0.0-0.5); Lymphocytes Absolute Auto 1.3 10^3/uL (1.2-3.8); Lymphocytes Percent Auto 8.8 % (20.5-60.0); Mean Corpuscular HGB Conc 32.3 g/dL (29.9-35.2); Mean Corpuscular Hemoglobin 28.6 pg (26.7-34.0); Mean Corpuscular Volume 88.3 fL (81.0-99.0); Monocytes Absolute Auto 0.7 10^3/uL (0.3-0.8); Monocytes Percent Auto 4.9 % (1.7-12.0); Neutrophils Absolute Auto 12.8 10^3/uL (1.4-6.5); Neutrophils Percent Auto 85.1 % (43.0-75.0); Platelet Count 277 10^3/uL (150-450); Red Blood Count 4.97 10^6/uL (4.20-5.40); Red Cell Distribution Width 13.2 % (11.0-15.0)
[2023-11-12 13:54] LABS: HCG Qualitative NEGATIVE (NEGATIVE); Internal Control Within Normal Limits
[2023-11-12] MEDS: HYOSCYAMINE SULFATE 0.125 MG TAB.SUBL SL (13:58)
[2023-11-12] MEDS: KETOROLAC TROMETHAMINE 30 MG/ML VIAL IVP (13:58)
[2023-11-12 14:02] LABS: Alanine Aminotransferase 28 U/L (14-59); Albumin Globulin Ratio 0.8; Albumin Level 3.6 g/dL (3.4-5.0); Alkaline Phosphatase 94 U/L (46-116); Anion Gap 14.5; Aspartate Amino Transferase 11 U/L (15-37); BUN Creatinine Ratio 16.9; Calcium 8.9 mg/dL (8.5-10.1); Carbon Dioxide 26.8 mmol/L (21.0-32.0); Chloride 97 mmol/L (98-107); Estimated GFR (African America >60 (>=60); Estimated GFR (Non-African Ame >60 (>=60); Globulin 4.4 g/dL; Glucose 119 mg/dL (74-106); Potassium 3.3 mmol/L (3.5-5.1); Sodium 135 mmol/L (136-145)
[2023-11-12 14:06] LABS: Lactate/Lactic Acid 1.1 mmol/L (0.4-2.0)
[2023-11-12 14:18] LABS: Bilirubin Urine NEGATIVE (NEGATIVE); Blood Urine SMALL (NEGATIVE); Clarity Urine CLEAR (CLEAR); Color Urine LT. YELLOW (YELLOW); Glucose Urine UA NEGATIVE (NEGATIVE); Ketones Urine 15 mg/dL (NEGATIVE); Leukocyte Esterase Urine MODERATE (NEGATIVE); Nitrite Urine NEGATIVE (NEGATIVE); Protein Urine NEGATIVE (NEG/TRACE); Urobilinogen Urine 0.2 EU/dL (0.2-1.0)
[2023-11-12 14:19] LABS: Urine Microscopic Indicated YES
[2023-11-12 14:37] LABS: Bacteria Urine TRACE #/HPF (NONE SEEN); Cast Seen? NONE SEEN #/LPF (NONE SEEN); Crystals Seen? None Seen #/HPF (None Seen); Mucus Urine NONE SEEN (NONE SEEN); Squamous Epithelial Cell Urine FEW #/LPF (NONE/RARE); Urine Culture Indicated YES
--- NOTE | 2023-11-12 14:46 | US_ITS ---
[address] [address] Patient Name: PREMA MOREIRA MRN: [id number] date: 1980 Sex: F Assigned Patient Location: ED.MAIN Current Patient Location: ER Accession/Order Number: [id number] Exam Date: 11/12/2023 15:00 Report Date: 11/12/2023 15:58 At the request of: KIMI GASCA Procedure: US pelvis transvaginal EXAMINATION: US pelvis transvaginal HISTORY: Pain, abnormal CT, rule out torsion COMPARISON: CT abdomen pelvis 11/12/2023 TECHNIQUE: Transabdominal and/or transvaginal sonographic examination was performed as indicated by examination type. FINDINGS: UTERUS: Normal size and appearance. Uterus size: 6.9 x 3.8 x 3.0 cm ENDOMETRIUM: Normal homogeneous appearance. Endometrial thickness: 8 mm RIGHT OVARY: Contains a large complex cyst versus hypovascular mass measuring at least 7.0 x 4.6 x 5.6 cm. Surrounding ovarian tissue demonstrates normal arterial and venous blood flow. Duplex Doppler demonstrates normal waveform and flow; resistive index 0.5. Ovary size: 5.9 x 7.9 x 8.1 cm LEFT OVARY: Normal size and appearance. Duplex Doppler demonstrates normal waveform and flow; resistive index 0.4. Ovary size: 5.2 x 4.1 x 3.1 cm CUL-DE-SAC: Unremarkable. No significant free fluid. BLADDER: Unremarkable. OTHER: None. US/US pelvis transvaginal IMPRESSION: 1. No evidence of ovarian torsion, however, there is a large complex cystic structure versus hypovascular mass arising from within the right ovary up to at least 7.0 cm in size. 2. Unremarkable uterus and left ovary. Electronically authenticated by: TICO SIMS Date: 11/12/2023 15:58
--- NOTE | 2023-11-12 14:54 | US_ITS ---
The [address] [address] Patient Name: PREMA MOREIRA MRN: [id number] date: 1980 Sex: F Assigned Patient Location: ED.MAIN Current Patient Location: ER Accession/Order Number: [id number] Exam Date: 11/12/2023 15:00 Report Date: 11/12/2023 16:03 At the request of: KIMI GASCA Procedure: US vas organ single comp EXAM: US vas organ single comp HISTORY: Rule out torsion Please see report attached to the ULTRASOUND Pelvis transvaginal 11/12/2023 Electronically authenticated by: TICO SIMS Date: 11/12/2023 16:03
--- NOTE | 2023-11-12 15:15 | PC.NURSE ---
this RN assumed care of patient from Sadia MONTOYA at approx 150. pt in imaging at this time.
[2023-11-12 16:27] VITALS: BP 118/85; PULSE 79; O2SAT 99
== END 2023-11-12 16:29 | disposition home or self-care (01) ==
PROVIDERS: Physician Assistant; Emergency Provider Emergency Medicine
DX: N39.0 Urinary tract infection, site not specified (principal); R10.9 Unspecified abdominal pain; N83.202 Unspecified ovarian cyst, left side
CPT/HCPCS: 36415; 74177; 76830; 80053; 81001; 83605; 83690; 84703; 85025; 87086; 93975; 96374; 99285; J1885; Q9967

== ENCOUNTER 2023-11-18 16:40 | Outpatient (OUT) | payer OTHER, SELFPAY ==
--- OUTSIDE RECORDS SUMMARY | 2023-11-18 16:55 | XMS_ITS ---
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 Name Role Phone RAY Doll, DR TREVINO Admitting Unavailabl e RAY ., DR TREVINO Attending Unavailabl e REQUEST, DR TRAORE LISTED Primary Care Unavaila ble RAY ., DR TREVINO Consulting Unavailabl e Unavailable Primary Care Provider Unavailabl e STEVEN, KARLA Attending Unavailable STEVEN, KARLA Attending Unavailable STEVEN, KARLA Attending Unavailable STEVEN, KARLA Attending Unavailable BETZY LANE Attending Unavailable NO, PHYSICIAN Primary Care Unavailable Encounters Encounter Date Encounter Type Care Provider Facility Start: 11-12-2023 End: 11-12-[address] [facility] Start: 09-09-2023 End: 09-09-2023 ambulatory KARLA STEVEN Not Available Start: 08-07-2023 End: 08-07-2023 ambulatory KARLA STEVEN Not Available Start: 07-03-2023 End: 07-03-2023 ambulatory KARLA STEVEN Not Available Start: 06-10-2023 End: 06-10-2023 ambulatory KARLA STEVEN Not Available Start: 06-10-2023 End: 06-10-2023 Office outpatient visit 15 minutes Karla Steven DO Work Phone: [facility] Comment on above: Abnormal uterine ble eding (AUB); PCOS (polycystic ovarian syndrome) Start: 06-26-2022 End: 06-26-[address] BELINDA BELL . Facility: Medications Current Medications Medication Drug Class(es) Dates Sig (Normalized) Sig (Original) Ethinyl Estradiol / Levonorgestrel (2 sources) Progestin, Estrogen, Progestin-containing Intrauterine Device take 1 tablet by mouth in the morning Setlakin 0.15-0.03 MG tablet Take 1 tablet by mouth in the morning. 0 Active Payers Date Payer Category Payer Unknown [employer] [id number] 2023-Present [phone] [address] [address] [place] [address] [id number] 1980 Unknown [id number] 3 1980 Unknown [id number] 59 1980 Unknown [id number] 59 1980 Unknown [id number] 59 1978 Unknown [id number] 59 1980 Unknown [id number] 3 1959 Unknown [id number] Plan of Treatment Date Care Activity Detail Author Start: 08-07-2023 End: 08-07-2023 Patient encounter procedure 08/07/2023 4:00 PM EDT Office Visit [facility] [address] [place] [id number] Karla Harris, DO [address] [place] [address] [facility] Start: 07-03-2023 End: 07-03-2023 Patient encounter procedure 07/03/2023 3:30 PM EST Procedure Visit [facility] [address] [place] [phone] Karla Harris, DO [address] [place], [place] [id number] [facility] Start: 07-03-2023 End: 07-03-2023 Professional / ancillary services management 07/03/2023 2:30 PM EST Ancillary Procedure [facility] [address] [place] [id number] [facility] Start: 06-10-2023 End: 06-10-2024 DHEA DHEA Lab Routine PCOS (polycystic ovarian syndrome) Expected: 06/10/2023 (Approximate), Expires: 06/10/2024 [facility] Comment on above: Expected: 06/10/2023 (Approximate), Expires: 06/10/2024 Start: 06-10-2023 End: 06-10-2024 US for US PELVIS-TRANSVAG IF INDICATED Imaging Routine PCOS (polycystic ovarian syndrome) Expected: 06/10/2023 (Approximate), Expires: 06/10/2024 [facility] Comment on above: Expected: 06/10/2023 (Approximate), Expires: 06/10/2024 CBC W Auto Different ial panel - Blood CBC and differential Lab Routine PCOS (polycystic ovarian syndrome) Ordered: 06/10/2023 [facility] Comment on above: Ordered: 06/10/2023 DHEA-sulfate DHEA-sulfate Lab Routine PCOS (polycystic ovarian syndrome) Ordered: 06/10/2023 [facility] Comment on above: Ordered: 06/10/2023 Follicle stimulating hormone Follicle stimulating hormone Lab Routine PCOS (polycystic ovarian syndrome) Ordered: 06/10/2023 [facility] Comment on above: Ordered: 06/10/2023 hCG, quantitative, hCG, quantitative, Lab Routine PCOS (polycystic ovarian syndrome) Ordered: 06/10/2023 [facility] Work Phone: Comment on above: Ordered: 06/10/2023 Hemoglobin A1c measurement Hemoglobin A1c Lab Routine Abnormal uterine bleeding (AUB) PCOS (polycystic ovarian syndrome) Ordered: 06/10/2023 [facility] Comment on above: Ordered: 06/10/2023 Luteinizing hormone Luteinizing hormone Lab Routine PCOS (polycystic ovarian syndrome) Ordered: 06/10/2023 [facility] Comment on above: Ordered: 06/10/2023 Thyrotropin [Units/volume] in Serum or Plasma TSH Lab Routine PCOS (polycystic ovarian syndrome) Ordered: 06/10/2023 [facility] Comment on above: Ordered: 06/10/2023 Thyroxine (T4) free [Mass/volume] in Serum or Plasma T4, free Lab Routine PCOS (polycystic ovarian syndrome) Ordered: 06/10/2023 [facility] Comment on above: Ordered: 06/10/2023 Problems Problem Classification Problem Date Documented Date Episodic/Chronic Abdominal pain (1 source) Abdominal pain Onset: 11-12-2023 Episodic Immunizations and screening for infectious disease (1 [...] SCREENING MALIG NEOPLASM CERV] Onset: 06-26-2022 Episodic Procedures Date Procedure Procedure Detail Performing Clinician Start: 06-26-2022 Cytp cerv/vag auto 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 Mary MARIE Work Phone: Results Test Name Value Interpretation Reference Range Facil ity PAP ACOG PANEL 2: 30 to 65on 07-02-2022 . . Normal [facility] Comment on above: Result Comment: Performed at: [facility] Performed By: #### [id number] #### [facility] [address] [address] [address] Rhoda Graves Age Gdln ACOG Testing 30-65 Normal [facility] Comment on above: Performed By: #### [id number] #### [facility] [address] [place], [place] [address] Dr. Rhoda Graves DIAGNOSIS: Comment Normal [facility] Comment on above: Result Comment: NEGATIVE FOR INTRAEPITHE LIAL LESION OR MALIGNANCY. Performed at: [facility] Performed By: #### [id number] #### [facility] [address] [address] [address] Rhoda Graves HPV Aptima Negative Normal Negative [facility] Comment on above: Result Comment: This nucleic acid amplif ication test detects fourteen high-risk HPV types (16,18,31,33,35,39,45,51,52,56,58,59,66,68) without differentiation. Performed at: =G Performed By: #### [id number] #### [facility] [address] [place] [address] Dr. Rhoda Graves HPV Genotype Reflex Comment Normal [facility] Comment on above: Result Comment: Criteria not met, HPV Ge notype not performed. Performed at: [facility] Performed By: #### [id number] #### [facility] [address] [place] [address] Dr. Rhoda Graves Methodology: Comment Normal [facility] Comment on above: Result Comment: This liquid based ThinPr ep(R) pap test was screened with the use of an image guided system. Performed at: [facility] Performed By: #### [id number] #### [facility] [address] [place] [address] Dr. Rhoda Graves Note: Comment Normal [facility] Comment on above: Result Comment: The Pap smear is a scree christina test designed to aid in the detection of premalignant and malignant conditions of the uterine cervix. It is not a diagnostic procedure and should not be used as the sole means of detecting cervical cancer. Both false-positive and false-negative reports do occur. . Performed at: [facility] Performed By: #### [id number] #### [facility] [address] [place] [address] Dr. Rhoda Graves Performed by: Comment Normal [facility] Comment on above: Result Comment: Olu Herrera Cytote chnologist (ASCP) Performed at: [facility] Performed By: #### [id number] #### [facility] [address] [place] [address] Dr. Rhoda Graves Specimen adequacy: Comment Normal [facility] Comment on above: Result Comment: Satisfactory for evaluat ion. Endocervical and/or squamous metaplastic cells (endocervical component) are present. Performed at: [facility] Performed By: #### [id number] #### [facility] [address] [place] [address] Dr. Rhoda Graves Cytology Cervical or vaginal smear or scraping studyon 06-26-2022 [facility] Healthcar e Social History Date Type Detail Facility Start: 06-10-2023 Alcohol intake Current drinke r of alcohol (finding) [facility] Start: 06-10-2023 History of Social function [facility] Start: 06-10-2023 Tobacco use panel [facility] Start: 05-20-2023 Tobacco smoking stat us PRIS Never smoked tobacco [facility] Start: 05-20-2023 Alcohol Comment Occasional alcohol u se [facility] Start: 1980 Sex Assigned At Not on file [facility] Vital Signs Date Time Vital Sign Value Performing Clinician Faci lity 06-10-2023 16:31-0500 Body mass index (BMI) [Ratio] 25.55 kg/m2 Karla Steven DO Work Phone: [facility] 06-10-2023 16:31-0500 Body weight 78.47 kg Karla Steven DO Work Phone: [facility] 06-10-2023 16:31-0500 Diastolic blood pressure 80 mm[Hg] Karla Steven DO Work Phone: [facility] 06-10-2023 16:31-0500 Systolic blood pressure 138 mm[Hg] Karla Steven DO Work Phone: [facility] Progress note 11-12-2023 Note Date & Type Note Facility 11-12-2023 Note [facility] Brief Evaluation Form Patient Name: [facility] Location: Prema Jorge [address] [id number] Date Of : Date Of Visit: 1980 11/12/2023 MRN# Provider: [id number] Betzy Lane PA-C SUBJECTIVE Prema Jorge [facility] with Abdominal Pain (NSAP x yesterday-- - pain /10 today pain yesterday 12/20- denies any injury/ n/v/d) HPI: Patient is a 43-year-old female who presents with abdominal pain since yesterday. She states the pain is worse with any type of movement and is relieved with lying still. She denies any improvement or worsening with eating but states she has no appetite. She denies any nausea or vomiting. Patient denies any chills but reports feeling feverish. Patient has no past surgical history of the abdomen. No ill contacts. No self treatment. Allergies: Patient has no known allergies. OBJECTIVE BP 136/87 Pulse (!) 106 Temp 98.1 degrees F (36.7 degrees C) Resp 16 Ht 5' 9 Wt 73.4 kg (161 lb 14.4 oz) SpO2 96% BMI 23.91 kg/m Pertinent PE Findings: Patient is alert and oriented. She appears in mild distress and sitting still on the exam table. When asked to move patient appears in moderate pain. Lungs -clear to auscultation Cardiovascular -heart regular rate and rhythm without murmurs rubs or gallops Abdomen -soft, flat with diminished bowel sounds in all 4 quadrants. The entire abdomen is tender to light palpation with most significant tenderness in the right lower quadrant. Positive McBurney's point tenderness. Positive rebound tenderness. No organomegaly or masses palpated. Negative psoas sign, negative Rovsing sign, negative obturator sign. ASSESSMENT 1. Acute abdomen Medical Decision Making: Considered appendicitis, cholecystitis, ovarian cyst rupture, ectopic , gastroenteritis, small bowel obstruction. Because of the acute nature of the patient's abdominal findings patient is recommended to seek further evaluation management at the nearest emergency department as her complaint and pain is beyond the scope of this urgent care. PLAN Patient is being recommended to go to [place] ED for further evaluation and treatment per patient choice. Patient will transport via Private Auto (family, friend, or other). Transfer Center Contacted: no Orders Placed This Visit No orders of the defined types were placed in this encounter. Medication List At End Of Visit No current outpatient medications on file. No current facility-administered medications for this visit. *Transfer location subject to change based on patient condition during transport at EMS discretion. AUTHENTICATED BY BETZY LANE, ON 11/12/2023 13:03:34 [facility] History of Present illness Narrative 06-10-2023 Lachelle Vincent LPN - 06/10/2023 3:50 PM EST Note Date [...] nursing note reviewed. Exam conducted with a maintenance groundman present. Vitals: Estimated body mass index is [...] by Lachelle Vincent LPN on behalf of: DO Akbar Blancoally signed by Lachelle Vincent LPN at 06/17/2023 9:08 AM EST documented in this encounter [facility] Evaluation note Note Date & Type Note Facility Evaluation note Diagnosis Abnormal uterine bleeding (AUB) PCOS (polycystic ovarian syndrome) Polycystic ovaries documented in this encounter [facility] Summary Purpose Family History No Family History Records FoundNo Family History Records FoundNo Family History Records Found Advance Directives No Advanced Directives Records FoundNo Advanced Directives Records FoundNo Advanced Directives Records Found Additional Source Comments INFORMATION SOURCE (unrecogn ized section and content) DATE CREATED AUTHOR 07/03/2022 [facility] DATE CREATED AUTHOR AUTHOR'S ORGANIZ ATION 09/10/2023 [facility] EPIC DATE CREATED AUTHOR AUTHOR'S ORGANIZ ATION 11/13/2023 [facility] Reason for Visit (unrecogniz ed section and [...] BE BASED ON THE PRIMARY CLINICAL RECORDS. [facility] [employer] provides no warranty or guarantee of the accuracy or completeness of information in this document.
[2023-11-18 17:33] LABS: Lactate Dehydrogenase 142 U/L (81-234)
[2023-11-20 04:07] LABS: AFP, Serum, Tumor Marker 3.2 ng/mL (0.0-6.4); Cancer Antigen (CA) 125 42.3 U/mL (0.0-38.1); HCG Tumor Marker <1 mIU/mL (.)
== END 2023-11-18 16:41 | disposition home or self-care (01) ==
LOC: LAB 16:43
PROVIDERS: Visit Provider Obstetrics & Gynecology
DX: N83.292 Other ovarian cyst, left side (principal)
CPT/HCPCS: 36415; 82105; 82378; 83615; 84702; 86304

== ENCOUNTER 2023-11-20 12:07 | Outpatient (OUT) | payer OTHER, SELFPAY ==
--- NOTE | 2023-11-20 12:28 | ECG_ITS ---
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
== END 2023-11-20 12:08 | disposition home or self-care (01) ==
LOC: PST 12:07
PROVIDERS: Visit Provider Obstetrics & Gynecology
DX: Z01.810 Encounter for preprocedural cardiovascular examination (principal); N83.292 Other ovarian cyst, left side
CPT/HCPCS: 93005

== ENCOUNTER 2023-11-26 06:14 | Day surgery (SDC) | payer OTHER, SELFPAY ==
[2023-11-20 12:50] VITALS: BP 132/85; PULSE 91; TEMP 36.4; O2SAT 96; BMI 23.9
[2023-11-26] VITALS (14 sets, daily range): BP systolic 111–131; BP diastolic 66–86; PULSE 76–92; TEMP 36.4–36.6; O2SAT 89–96; BMI 23.5
--- OUTSIDE RECORDS SUMMARY | 2023-11-26 06:17 | XMS_ITS ---
Patient Summarization (C-CDA 2.1 CCD) Created on: November 26, 2023 PREMA JORGE : 1980 Sex: Female Author Organization Sample organization Care Team Providers Care Rack Loader Name Role Phone RAY ., DR TREVINO Admitting Unavailabl e KARASIK ., DR TREVINO Attending Unavailabl e REQUEST, DR TRAORE LISTED Primary Care Unavaila ble RAY ., DR TREVINO Consulting Unavailabl e Unavailable Primary Care Provider Unavailabl e Karla Harris Attending Provider Steven, Karla Attending Unavailable Steven, Karla Admitting Unavailable BETZY LANE Attending Unavailable NO, PHYSICIAN Primary Care Unavailable STEVEN, KARLA Attending Unavailable STEVEN, KARLA Attending Unavailable STEVEN, KARLA Attending Unavailable STEVEN, KARLA Attending Unavailable STEVEN, KARLA Attending Unavailable Encounters Encounter Date Encounter Type Care Provider Facility Start: 11-18-2023 End: 11-18-2023 ambulatory KARLA STEVEN Not Available Start: 11-12-2023 End: 11-12-[address] [facility] Start: 09-09-2023 End: 09-09-2023 ambulatory KARLA STEVEN Not Available Start: 08-07-2023 End: 08-07-2023 ambulatory KARLA STEVEN Not Available Start: 07-04-2023 End: 07-04-2023 ambulatory Karla Steven Facility:[facility] Start: 07-04-2023 End: 07-04-2023 ambulatory Karla Steven Work Phone: [facility] Work Phone: Start: 07-04-2023 End: 07-04-2023 Departed Referred Karla Steven Work Phone: [facility] Start: 07-03-2023 End: 07-03-2023 ambulatory KARLA HARRIS Not Available Start: 06-10-2023 End: 06-10-2023 ambulatory KARLA HARRIS Not Available Start: 06-10-2023 End: 06-10-2023 Office outpatient visit 15 minutes Karla Harris DO Work Phone: [facility] Comment on above: Abnormal uterine [...] 0 Active Payers Date Payer Category Payer Self-pay 2023 Unknown [employer] [id number] 2023-Present [phone] [address] [address] [place] [address] [id number] 1980 Unknown [id number] 3 1980 Unknown [id number] 3 1980 Unknown [id number] 59 1980 Unknown [id number] 59 1978 Unknown [id number] 59 1978 Unknown [id number] 59 1978 Unknown [id number] 59 1959 Unknown [id number] Plan of Treatment Date Care Activity Detail Author Start: 08-07-2023 End: 08-07-2023 Patient encounter procedure 08/07/2023 4:00 PM EDT Office Visit [facility] [address] [place] [address] Karla Harris, DO [address] [place] [address] [facility] Start: 07-03-2023 End: 07-03-2023 Patient encounter procedure 07/03/2023 3:30 PM EST Procedure Visit [facility] [place] [id number] Karla Harris, DO [address] [place] [address] [facility] Start: 07-03-2023 End: 07-03-2023 Professional / ancillary services management 07/03/2023 2:30 PM EST Ancillary Procedure [facility] [address] [place] [id number] [facility] Start: 06-10-2023 End: 06-10-2024 DHEA DHEA Lab Routine PCOS (polycystic ovarian syndrome) Expected: 06/10/2023 (Approximate), Expires: 06/10/2024 [facility] Comment on above: Expected: 06/10/2023 (Approximate), Expires: 06/10/2024 Start: 06-10-2023 End: 06-10-2024 US for US PELVIS-TRANSVAG IF INDICATED Imaging Routine PCOS (polycystic ovarian syndrome) Expected: 06/10/2023 (Approximate), Expires: 06/10/2024 [facility] Comment on above: Expected: 06/10/2023 (Approximate), Expires: 06/10/2024 CBC W Auto Different ial panel - Blood CBC and differential Lab Routine PCOS (polycystic ovarian syndrome) Ordered: 06/10/2023 [facility] Comment on above: Ordered: 06/10/2023 DHEA-sulfate DHEA-sulfate Lab Routine PCOS (polycystic ovarian syndrome) Ordered: 06/10/2023 [facility] Comment on above: Ordered: 06/10/2023 Follicle stimulating hormone Follicle stimulating hormone Lab Routine PCOS (polycystic ovarian syndrome) Ordered: 06/10/2023 [facility] Comment on above: Ordered: 06/10/2023 hCG, quantitative, hCG, quantitative, Lab Routine PCOS (polycystic ovarian syndrome) Ordered: 06/10/2023 [facility] Work Phone: Comment on above: Ordered: 06/10/2023 Hemoglobin A1c measurement Hemoglobin A1c Lab Routine Abnormal uterine bleeding (AUB) PCOS (polycystic ovarian syndrome) Ordered: 06/10/2023 [facility] Comment on above: Ordered: 06/10/2023 Luteinizing hormone Luteinizing hormone Lab Routine PCOS (polycystic ovarian syndrome) Ordered: 06/10/2023 [facility] Comment on above: Ordered: 06/10/2023 Thyrotropin [Units/volume] in Serum or Plasma TSH Lab Routine PCOS (polycystic ovarian syndrome) Ordered: 06/10/2023 [facility] Comment on above: Ordered: 06/10/2023 Thyroxine (T4) free [Mass/volume] in Serum or Plasma T4, free Lab Routine PCOS (polycystic ovarian syndrome) Ordered: 06/10/2023 [facility] Comment on above: Ordered: 06/10/2023 Problems Problem [...] 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 Mary Mclaughlin CYNTHIA Work Phone: Results Test Name Value Interpretation Reference Range Chepe Bishop 07-03-2023 L Specimen: [id number] Received: 07/04/23 Status: NICHELLE Bautista Num: [id number] Spec Type: Surgical Subm Dr: Karla Harris Tissues: A Endometrium - Curettings (ENDOMETRIAL LINING) Procedures: HE/2, Gross/Micro L4 Age/ Patient Sex Location Account Attending Physician LuisitoPrema 42/F LABELL [id number] Karla Harris SPEC NUM: [id number] RECD: 07/04/23 STATUS: NICHELLE BAUTISTA NUM: [id number] LYNDSAY: 07/03/[address]: Karla Harris ENTERED: 07/04/[address] [facility] [address]: Cheryl,Lab SPEC TYPE: Surgical DEPT: AMAN GONZALEZ ORDERED: HE/2, Gross/Micro L4 ORDERED: HE/2, Gross/Micro L4 Pathological Diagnosis Endometrium, Biopsy: Benign Endometrium with Features Suggestive Of Endometrial Polyp. Clinical Information Abnormal uterine bleeding Gross Description Received in formalin labeled with the patient's name, date of and EM BX is a 1.9 x 1.2 x 0.2 cm aggregate of pale-cash tissue fragments. Entirely submitted in one cassette labeled A1. CPT Codes 23953 Specimen: [id number] Received: 07/04/23-2 Status: NICHELLE Bautista Num: [id number] Spec Type: Surgical Subm Dr: Karla Harris Tissues: A Endometrium - Curettings (ENDOMETRIAL LINING) Procedures: HE/2, Gross/Micro L4 Patient: LuisitoPrema [id number] (Continued) Signed (signature on file) Marlin Garcia MD 07/09/232230 [facility] PAP ACOG PANEL 2: 30 to 65on 07-02-2022 . . Normal Comment on above: Result Comment: Performed at: [facility] Performed By: #### [id number] #### [facility] [address] [place] [address] Dr. Rhoda Graves Age Gdln ACOG Testing 30-65 [facility] Comment on above: Performed By: #### [id number] #### [facility] [address] [place] [address] Dr. Rhoda Graves DIAGNOSIS: Comment [facility] Comment on above: Result Comment: NEGATIVE FOR INTRAEPITHE LIAL LESION OR MALIGNANCY. Performed at: [facility] Performed By: #### [id number] #### [facility] [address] [place] [address] Dr. Rhoda Graves HPV Aptima Negative Normal Negative Comment on above: Result Comment: This nucleic acid amplif ication test detects fourteen high-risk HPV types (16,18,31,33,35,39,45,51,52,56,58,59,66,68) without differentiation. Performed at: =G Performed By: #### [id number] #### [facility] [address] [address] [address] Rhoda Graves HPV Genotype Reflex Comment Normal Comment on above: Result Comment: Criteria not met, HPV Ge notype not performed. Performed at: [facility] Performed By: #### [id number] #### [facility] [address] [place] [address] Dr. Rhoda Graves Methodology: Comment Normal Comment on above: Result Comment: This liquid based ThinPr ep(R) pap test was screened with the use of an image guided system. Performed at: [facility] Performed By: #### [id number] #### [facility] [address] [place] [address] Dr. Rhoda Graves Note: Comment Normal Comment on above: Result Comment: The Pap smear is a scree christina test designed to aid in the detection of premalignant and malignant conditions of the uterine cervix. It is not a diagnostic procedure and should not be used as the sole means of detecting cervical cancer. Both false-positive and false-negative reports do occur. . Performed at: [facility] Performed By: #### [id number] #### [facility] [address] [place] [address] Dr. Rhoda Graves Performed by: Comment Normal [facility] Comment on above: Result Comment: Olu Herrera Cytoanalia chnologist (ASCP) Performed at: [facility] Performed By: #### [id number] #### [facility] [address] [place] [address] Dr. Rhoda Graves Specimen adequacy: Comment Normal Comment on above: Result Comment: Satisfactory for evaluat ion. Endocervical and/or squamous metaplastic cells (endocervical component) are present. Performed at: [facility] Performed By: #### [id number] #### [facility] [address] [address] [address] Rhoda Graves Cytology Cervical or vaginal smear or scraping studyon 06-26-2022 [facility] Healthcar e Social History Date Type Detail Facility Start: 06-10-2023 Alcohol intake Current drinke r of alcohol (finding) [facility] Start: 06-10-2023 History of Social function [facility] Start: 06-10-2023 Tobacco use panel [facility] Start: 05-20-2023 Tobacco smoking status NHIS Never smoked tobacco [facility] Start: 05-20-2023 Alcohol Comment Occasional alcohol u se [facility] Start: 1980 Sex Assigned At Not on file [facility] Start: 1980 Sex Assigned At Female F [facility] Vital Signs Date Time Vital Sign Value Performing Clinician Faci lity 06-10-2023 16:31-0500 Body mass index (BMI) [Ratio] 25.55 kg/m2 Krala Steven DO Work Phone: [facility] 06-10-2023 16:31-0500 Body weight 78.47 kg Karla Steven DO Work Phone: [facility] 06-10-2023 16:31-0500 Diastolic blood pressure 80 mm[Hg] Karla Steven [employer] Work Phone: [facility] 06-10-2023 16:31-0500 Systolic blood pressure 138 mm[Hg] Karla Steven [employer] Work Phone: [facility] Progress note 11-12-2023 Note Date & Type Note Facility 11-12-2023 Note [facility] Brief Evaluation Form Patient Name: [facility] Location: Prema Jorge [address] [id number] Date Of : Date Of Visit: 1980 11/12/2023 MRN# Provider: [id number] Betzy Lane PA-C SUBJECTIVE Prema Jorge [facility] with Abdominal Pain (NSAP x yesterday-- - pain 6/10 today pain yesterday 12/20- denies any injury/ [...] Patient is being recommended to go to [facility] for further evaluation and treatment per [...] AUTHENTICATED BY BETZY LANE, ON 11/12/2023 13:03:34 [facility] History of Present illness [...] nursing note reviewed. Exam conducted with a sample clerk present. Vitals: Estimated body mass index is [...] Karla Harris DO documented in this encounter [facility] Evaluation note Note Date & Type Note Facility Evaluation note Diagnosis Abnormal uterine bleeding (AUB) PCOS (polycystic ovarian syndrome) Polycystic ovaries documented in this encounter [facility] Evaluation note Note Date & Type Note Facility Evaluation note No assessment information availa [facility] Work Phone: Summary Purpose Family History No Family History Records FoundNo Family History Records FoundNo Family History Records FoundNo Family History Records Found Advance Directives No Advanced Directives Records FoundNo Advanced Directives Records FoundNo Advanced Directives Records FoundNo Advanced Directives Records Found Additional Source Comments INFORMATION SOURCE (unrecogn ized section and content) DATE CREATED AUTHOR 07/03/2022 [facility] DATE CREATED AUTHOR AUTHOR'S ORGANIZ ATION 07/12/[address] [facility] DATE CREATED AUTHOR AUTHOR'S ORGANIZ ATION 11/13/2023 [facility] DATE CREATED AUTHOR AUTHOR'S ORGANIZ ATION 11/26/2023 [facility] EPIC Reason for Visit (unrecogniz ed section and content) Reason Comments Irregular cycles Care Teams (unrecognized sec tion and content) Team Status: Inactive Member Role Status Dates Karla Harris Attending Provider Active Start: [facility] 2023 End: July 04, 2023 Goals (unrecognized section and content) Goals may be documented in a n alternate section FOR RECORDS PERTAINING TO PATIENTS WHO ARE [...] BE BASED ON THE PRIMARY CLINICAL RECORDS. [facility] [employer] [facility]. provides no warranty or guarantee of the accuracy or completeness of information in this document.
[2023-11-26 06:24] LABS: Basophils Percent Auto 0.5 % (0.2-2.0); Eosinophils Absolute Auto 0.4 10^3/uL (0.0-0.7); Eosinophils Percent Auto 4.7 % (0.9-7.0); Hematocrit 43.1 % (36.0-48.0); Immature Granulocytes Pct Auto 1.3 % (0.0-0.5); Lymphocytes Absolute Auto 2.2 10^3/uL (1.2-3.8); Lymphocytes Percent Auto 27.5 % (20.5-60.0); Mean Corpuscular HGB Conc 32.5 g/dL (29.9-35.2); Mean Corpuscular Hemoglobin 29.2 pg (26.7-34.0); Mean Corpuscular Volume 89.8 fL (81.0-99.0); Mean Platelet Volume 9.3 fL (9.5-13.5); Monocytes Absolute Auto 0.5 10^3/uL (0.3-0.8); Monocytes Percent Auto 6.3 % (1.7-12.0); Neutrophils Absolute Auto 4.7 10^3/uL (1.4-6.5); Neutrophils Percent Auto 59.7 % (43.0-75.0); Platelet Count 322 10^3/uL (150-450); Red Cell Distribution Width 12.6 % (11.0-15.0); White Blood Count 7.9 10^3/uL (4.0-11.0)
[2023-11-26 06:47] LABS: HCG Quantitative <1 mIU/mL
[2023-11-26] MEDS: LACTATED RINGER'S SOLUTION 1,000 ML 50 ML IV (06:53)
--- NOTE | 2023-11-26 08:20 | P.ON_ITS ---
Brief Operative Note Date of procedure: 11/26/23 Pre-op diagnosis general: rt ovarian cyst, pelvic pain Post-op diagnosis: same as pre-op Procedure: NAME OF PROCEDURE: [diagnostic laparoscopy ] findings-significant ovarian adheson to bowel and bladder, appears to be a large endometrioma, unable to fully visualize pelvic anatomy. PROCEDURE: The patient was taken back to the Operating Room where she was placed in dorsal lithotomy position after given general anesthesia. The patient was prepped and draped in normal sterile fashion. A sponge stick was placed into the patient's vagina. Attention was turned to the patient's abdomen, where a small umbilical incision was made. The fascia was tented using Elvia clamps and the fascia was entered sharply. Confirmation of intraabdominal placement of the 10 mm port was confirmed under direct visualization using a laparoscope. The patient's abdomen was then insufflated using CO2 gas with approximately 4 liters. A second port was placed left laterally, this was done under direct visualization with a 5 mm port. Survey of the patient's abdomen demonstrated normal liver and gallbladder. Survey of the patient's pelvic anatomy demonstrated a large ovarian cyst, which appeared to becoming from the rt side, dt to size and significant bowel adhesion, unable to further visualize pelvic anatomy. rt ovarian cystotomy was performed bluntly, with large endometrioma present, fluid was sent off for cytology. All instruments were removed from the patient's abdomen. The patient's abdomen was deinsufflated of CO2 gas. The patient tolerated the procedure well. Sponge stick was removed from the patient's vagina. The patient's infraumbilical fascia was closed using #0 Vicryl on a GI needle. The patient's skin was closed laterally and infraumbilically using 4-0 Vicryl. The patient tolerated the procedure well. Sponge, lap and needle counts were correct x 2. The patient was taken to Recovery Room in stable condition. Anesthesia: NAKITA Surgeon: Rufus Harris Facilities Maintenance Engineer: Isaura Rogers Estimated blood loss (mL): 5 Pathology: other (fluid cytology) Condition: stable Disposition: PACU Urinary Catheter Management Urinary Catheter Management Urethral: Cath placed during this visit: no
[2023-11-26] MEDS: HYDROCODONE/ACET 5-325 MG TABLET 1 TAB PO (09:41)
== END 2023-11-26 11:45 | disposition home or self-care (01) ==
PROVIDERS: Visit Provider Obstetrics & Gynecology
PROC: (CPT 840; principal; 2023-11-26 07:30)
DX: N83.201 Unspecified ovarian cyst, right side (principal); R10.2 Pelvic and perineal pain; N73.6 Female pelvic peritoneal adhesions (postinfective); N80.121 Deep endometriosis of right ovary
CPT/HCPCS: 49322; 36415; 84702; 85025; 88112; 88305; J0131; J1100; J1885; J2250; J2405; J2704; J3010

== ENCOUNTER 2024-08-12 18:12 | Outpatient (REF) | payer OTHER, SELFPAY ==
--- OUTSIDE RECORDS SUMMARY | 2024-08-12 18:18 | XMS_ITS | CCD ---
Author Organization [facility] Care Team Providers Care Billing Customer Service Representative Name Role Phone RAY Doll, DR TREVINO Admitting Unavailabl e RAY ., DR TREVINO Attending Unavailabl e REQUEST, DR TRAORE LISTED Primary Care Unavaila ble RAY Doll, DR TREVINO Consulting Unavailabl e Unavailable Primary Care Provider Unavailabl e Karla Harris Attending Provider BETZY LANE Attending Unavailable NO, PHYSICIAN Primary Care Unavailable Steven, DO Karla Attending Provider Steven Karla Admitting Unavailable Steven, Karla Attending Unavailable Steven, Karla Attending Unavailable Steven, Karla Admitting Unavailable STEVEN, KARLA Attending Unavailable STEVEN, KARLA Attending Unavailable STEVEN, KARLA Attending Unavailable STEVEN, KARLA Attending Unavailable STEVEN, KARLA Attending Unavailable MARY MONDRAGON Attending Unavailable JASON GAMING Attending Unavailable JASON GAMING Referring Unavailable JASON GAMING Attending Unavailable JASON GAMING Referring Unavailable JASON GAMING Attending Unavailable JASON GAMING Attending Unavailable JASON GAMING Attending Unavailable JASON GAMING Referring Unavailable JASON GAMING Admitting Unavailable JASON GAMING Attending Unavailable JASON GAMING Referring Unavailable EMILY HASSAN Attending Unavailable Unavailable Primary Care Provider Unavailabl e Medications Current Medications Medication Drug Class(es) Dates Sig (Normalized) Sig (Original) acetaminophen 500 mg oral tablet (1 source) Start: 04-03-2024 take 2 tablets by mouth every eight hours as needed for pain acetaminophen (TYLENOL EXTRA STRENGTH) 500 mg tablet Take 2 tablets (1,000 mg total) by mouth every 8 (eight) hours as needed for pain. 30 tablet 04/03/2024 Active Ethinyl Estradiol / Levonorgestrel (2 sources) Progestin, Estrogen, Progestin-containi ng Intrauterine Device take 1 tablet by mouth in the morning Setlakin 0.15-0.03 MG tablet Take 1 tablet by mouth in the morning. 0 Active ibuprofen 800 mg oral tablet (1 source) Nonsteroidal Anti-inflammatory Drug Start: 04-03-2024 take 1 tablet by mouth every eight hours as needed for pain ibuprofen (MOTRIN) 800 mg tablet Take 1 tablet (800 mg total) by mouth every 8 (eight) hours as needed for pain. 30 tablet 04/03/2024 Active multivit with calcium,iron,min (MULTIPLE VITAMIN, WOMENS ORAL) (9 sources) multivit with calcium,iron,min (MULTIPLE VITAMIN, WOMENS ORAL) Take by mouth. Active sennosides, group home 8.6 mg oral tablet (1 source) Start: 04-03-2024 take 1 tablet by mouth in the morning senna (SENOKOT) 8.6 mg tablet Take 1 tablet (8.6 mg total) by mouth in the morning. 10 tablet 04/03/2024 Active Problems Active Problems Problem Classification Problem Date Documented Date Episodic/Chronic Abdominal pain (1 source) Abdominal pain Onset: 11-12-2023 Episodic Immunizations and screening for infectious disease (1 source) Encounter for screening for human papillomavirus (HPV); Translations: [ENC SCREENING HUMAN PAPILLOMAVIRUS] Onset: 06-29-2022 Episodic Other aftercare (1 source) Postoperative visit; Translations: [Encounter for other specified surgical aftercare] 04-17-2024 Episodic Other endocrine disorders (2 sources) Polycystic ovary syndrome; Translations: [Polycystic ovarian syndrome] 06-10-2023 Chronic Other female genital disorders (2 sources) Abnormal uterine bleeding; Translations: [Abnormal uterine and vaginal bleeding, unspecified] 06-06-2023 Chronic Other nervous system disorders (1 source) Other acute postprocedural pain; Translations: [Other acute postprocedural pain] Onset: 04-03-2024 Episodic Other screening for suspected conditions (not mental disorders or infectious disease) (4 sources) Encounter for screening for malignant neoplasm of cervix; Translations: [ENC SCREENING MALIG NEOPLASM CERV] Onset: 06-26-2022 Episodic Unclassified (1 source) OVARIAN CYST LEFT Onset: 04-03-2024 Past or Other Problems Problem Classification Problem Date Documented Da te Episodic/Chronic Ovarian cyst (19 sources) Unspecified ovarian cyst, left side; Translations: [Cyst of left ovary] Onset: 12-04-2023 12-04-2023 Episodic Results Test Name Value Interpretation Reference Range Facility Surgical Pathologyon 024 Surgical Pathology Normal [facility] Comment on above: Result Comment: [facility] [address] [place] [address] Surgical Pathology Consultation Patient Name:PREMA JORGE:1980 (Age: 43)Gender:FTaken:4Reported:04/14/2024hysician(s):Jason Gaming M.D. ([phone])Copy To: Rec. #:[id number]: #[id number] Final Pathologic Diagnosis Left ovarian cyst - cystectomy: - Serous cystadenoma (negative for malignancy) Report Electronically Signed Out mann/04/14/2024Jose A Sommer MD Interpretation performed at [facility], [address] [place] [address], License number: [id number]. Clinical History Ovarian cyst left. Gross Description Received in formalin labeled, LUISITO, left ovarian cyst are 4 sheets of membranous tissue that ranges from 4 x 2 x 0.1 cm to 13 x 4 x 0.1 cm. 1 surface is cash to reddish-brown and shaggy. The opposite surfaces are pale schwarz and smooth. Multiple loss prevention representative sections are submitted in cassettes A-C. (3, ss, [id number], m) [facility]/04/03/2024GR Specimen(s) Received Left ovarian cyst Fee Codes(s): 1; 80470 CBC AND AUTO DIFFon 03-24-20 ABSOLUTE BASOPHIL 0.0 X10E9/L Normal 0.0-0.2 [facility] Comment on above: Performed By: #### C BCA, CMP #### [facility] ([id number]) [address] [place] [address], [address] [place] [address] ABSOLUTE NEUTROPHIL 5.1 X10E9/L Normal 1.5-6.6 [facility] Comment on above: Performed By: #### C BCA, CMP #### [facility] ([id number]) [address], [address] [place] [address] Basophils/100 WBC (Bld) 0.5 % Normal [facility] Comment on above: Performed By: #### C BCA, CMP #### [facility] ([id number]) [address], [facility] [address] [place] [address] Eosinophils (Bld) [#/Vol] 0.2 10*3/uL Normal 0.0-0.4 [facility] Comment on above: Performed By: #### C BCA, CMP #### [facility] ([id number]) [address], [facility] [address] [place] [address] Eosinophils/100 WBC (Bld) 2.6 % Normal [facility] Comment on above: Performed By: #### C BCA, CMP #### [facility] ([id number]) [address], [address] [place] [address] Erythrocyte distribution width (RBC) [Ratio] 13.6 % Normal 11.5-15.0 [facility] Comment on above: Performed By: #### C BCA, CMP #### [facility] ([id number]) [address] [address] [place] [address] Hematocrit (Bld) [Volume fraction] 42.0 % Normal 35-47 [facility] Comment on above: Performed By: #### C BCA, CMP #### [facility] ([id number]) [address] [address] [place] [address] Hemoglobin (Bld) [Mass/Vol] 14.1 g/dL Normal 11.7-15.5 [facility] Comment on above: Performed By: #### C BCA, CMP #### [facility] ([id number]) [address], [address] [place] [address] Lymphocytes (Bld) [#/Vol] 2.1 10*3/uL Normal 1.0-3.5 [facility] Comment on above: Performed By: #### C BCA, CMP #### [facility] ([id number]) [address], [address] [place] [address] Lymphocytes/100 WBC (Bld) 26.3 % Normal [facility] Comment on above: Performed By: #### C BCA, CMP #### [facility] ([id number]) [address], [address] [place] [address] MCH (RBC) [Entitic mass] 29.2 pg Normal 27-34 [facility] Comment on above: Performed By: #### C BCA, CMP #### [facility] ([id number]) [address], [address] [place] [address] MCHC (RBC) [Mass/Vol] 33.6 g/dL Normal 32-36 [facility] Comment on above: Performed By: #### C BCA, CMP #### [facility] ([id number]) [address], [address] [place] [address] MCV (RBC) [Entitic vol] 87 fL Normal 80-100 [facility] Comment on above: Performed By: #### C BCA, CMP #### [facility] ([id number]) [address] [address] [place] [address] Monocytes (Bld) [#/Vol] 0.6 10*3/uL Normal 0-0.9 [facility] Comment on above: Performed By: #### C BCA, CMP #### [facility] ([id number]) [address], [address] [place] [address] Monocytes/100 WBC (Bld) 7.1 % Normal [facility] Comment on above: Performed By: #### C BCA, CMP #### [facility] ([id number]) [address], [address] [place] [address] Neutrophils/100 WBC (Bld) 63.5 % Normal [facility] Comment on above: Performed By: #### Fermin VORA, CMP #### [facility] ([id number]) [address], [facility] [address] [place] [address] Platelet mean volume (Bld) [Entitic vol] 8.8 fL Normal 7-12 [facility] Comment on above: Performed By: #### Fermin VORA, CMP #### [facility] ([id number]) [address], [address] [place] [address] Platelets (Bld) [#/Vol] 300 10*3/uL Normal 150-450 [facility] Comment on above: Performed By: #### Fermin VORA, CMP #### [facility] ([id number]) [address], [address] [place] [address] RBC COUNT 4.84 X10E12/L Normal 3.80-5.20 [facility] Comment on above: Performed By: #### Fermin VORA, CMP #### [facility] ([id number]) [address] [facility] [address] [place] [address] WBC (Bld) [#/Vol] 8.0 10*3/uL Normal 4.0-11.0 [facility] Comment on above: Performed By: #### Fermin VORA, CMP #### [facility] ([id number]) [address], [address] [place] [address] CBC with auto diffon 12-2 024 Basophils (Bld) [#/Vol] 0 10*3/uL [facility] Basophils/100 WBC (Bld) 0.5 % [facility] Eosinophils (Bld) [#/Vol] 0.2 10*3/uL [facility] Eosinophils/100 WBC (Bld) 2.6 % [facility] Erythrocyte distribution width (RBC) [Ratio] 13.6 % 11.5 - 15.0 % [facility] Hematocrit (Bld) [Volume fraction] 42 % 35 - 47 % [facility] Hemoglobin (Bld) [Mass/Vol] 14.1 g/dL 11.7 - 15.5 g/dL [facility] Lymphocytes (Bld) [#/Vol] 2.1 10*3/uL [facility] Lymphocytes/100 WBC (Bld) 26.3 % [facility] MCH (RBC) [Entitic mass] 29.2 pg 27 - 34 pg [facility] MCHC (RBC) [Mass/Vol] 33.6 g/dL 32 - 36 g/dL [facility] MCV (RBC) [Entitic vol] 87 fL 80 - 100 fL [facility] Monocytes (Bld) [#/Vol] 0.6 10*3/uL [facility] Monocytes/100 WBC (Bld) 7.1 % [facility] Neutrophils (Bld) [#/Vol] 5.1 10*3/uL [facility] Neutrophils/100 WBC (Bld) 63.5 % [facility] Platelet mean volume (Bld) [Entitic vol] 8.8 fL 7 - 12 fL [facility] Platelets (Bld) [#/Vol] 300 10*3/uL [facility] RBC (Bld) [#/Vol] 4.84 10*6/uL [facility] WBC corrected for nucl RBC Auto (Bld) [#/Vol] 8 [facility] COMPREHENSIVE METABOLIC PANE Dario 03-24-2024 Albumin [Mass/Vol] 4.4 g/dL Normal 3.2-5.3 [facility] Comment on above: Performed By: #### C BCA, CMP #### [facility] ([id number]) [address] [facility] [facility] [place] [address] ALP [Catalytic activity/Vol] 74 U/L Normal 39-130 [facility] Comment on above: Performed By: #### C BCA, CMP #### [facility] ([id number]) [address] [place] [address] ALT [Catalytic activity/Vol] 13 U/L Normal 0-31 [facility] Comment on above: Performed By: #### C BCA, CMP #### [facility] ([id number]) [address], [address] [place] [address] Anion gap [Moles/Vol] 10 mmol/L Normal 5-15 [facility] Comment on above: Performed By: #### C BCA, CMP #### [facility] ([id number]) [address], [address] [place] [address] AST [Catalytic activity/Vol] 13 U/L Normal 0-41 [facility] Comment on above: Performed By: #### C BCA, CMP #### [facility] ([id number]) [address], [address] [place] [address] Bilirubin [Mass/Vol] 0.5 mg/dL Normal 0.3-1.2 [facility] Comment on above: Performed By: #### C BCA, CMP #### [facility] ([id number]) [address], [address] [place] [address] Calcium [Mass/Vol] 9.7 mg/dL Normal 8.5-10.5 [facility] Comment on above: Performed By: #### C BCA, CMP #### [facility] ([id number]) [address], [address] [place] [address] Chloride [Moles/Vol] 101 mmol/L Normal 98-109 [facility] Comment on above: Performed By: #### C BCA, CMP #### [facility] ([id number]) [address], [address] [place] [address] CO2 [Moles/Vol] 29 mmol/L Normal 22-32 [facility] Comment on above: Performed By: #### C BCA, CMP #### [facility] ([id number]) [address] [address] [place] [address] Creatinine [Mass/Vol] 0.71 mg/dL Normal 0.40-1.00 [facility] Comment on above: Result Comment: METH OD TRACEABLE TO IDMS STANDARD Performed By: #### C BCA, CMP #### [facility] ([id number]) [address], [address] [place] [address] eGFR (CKD-EPI) NON-RACE DEPENDENT >90 Normal >59 [facility] Comment on above: Result Comment: Reported eGFR is based on the CKD-EPI 2020 equation that does not use a race coefficient. Performed By: #### C BCA, CMP #### [facility] ([id number]) [address] [address] [place] [address] Glucose [Mass/Vol] 93 mg/dL Normal 65-99 [facility] Comment on above: Performed By: #### C BCA, CMP #### [facility] ([id number]) [address] [address] [place] [address] Potassium [Moles/Vol] 3.7 mmol/L Normal 3.5-5.0 [facility] Comment on above: Performed By: #### C BCA, CMP #### [facility] ([id number]) [address] [address] [place] [address] Protein [Mass/Vol] 7.1 g/dL Normal 6.0-8.0 [facility] Comment on above: Performed By: #### C BCA, CMP #### [facility] ([id number]) [address] [address] [place] [address] Sodium [Moles/Vol] 140 mmol/L Normal 134-146 [facility] Comment on above: Performed By: #### C BCA, CMP #### [facility] ([id number]) [address] [address] [place] [address] Urea nitrogen [Mass/Vol] 18 mg/dL Normal 5-23 [facility] Comment on above: Performed By: #### C BCA, CMP #### [facility] ([id number]) [address], [address] [place] [address] Comprehensive metabolic pane dario 03-24-2024 Albumin [Mass/Vol] 4.4 g/dL 3.2 - 5.3 g/dL [facility] ALP [Catalytic activity/Vol] 74 U/L 39 - 130 U/L [facility] ALT No additional P-5'-P [Catalytic activity/Vol] 13 U/L 0 - 31 U/L [facility] Anion gap [Moles/Vol] 10 mmol/L 5 - 15 mmol/L [facility] AST [Catalytic activity/Vol] 13 U/L 0 - 41 U/L [facility] Bilirubin [Mass/Vol] 0.5 mg/dL 0.3 - 1 .2 mg/dL [facility] Calcium [Mass/Vol] 9.7 mg/dL 8.5 - 10. 5 mg/dL [facility] Chloride [Moles/Vol] 101 mmol/L 98 - 10 9 mmol/L [facility] CO2 [Moles/Vol] 29 mmol/L 22 - 32 mmol/L [facility] Creatinine [Mass/Vol] 0.71 mg/dL 0.40 - 1.00 mg/dL [facility] Comment on above: METHOD TRACEABLE TO IDRI STANDARD eGFR (CKD-EPI)non-race dependent - PINF [facility] Comment on above: Reported eGFR is based on the CKD-EPI 2020 equation that does not use a race coefficient. Glucose [Mass/Vol] 93 mg/dL 65 - 99 mg/dL [facility] Potassium [Moles/Vol] 3.7 mmol/L 3.5 - 5.0 mmol/L [facility] Protein [Mass/Vol] 7.1 g/dL 6.0 - 8.0 g/dL [facility] Sodium [Moles/Vol] 140 mmol/L 134 - 146 mmol/L [facility] Urea nitrogen [Mass/Vol] 18 mg/dL 5 - 23 mg/dL [facility] X[facility] CT ABDOMEN AND PELVIS W CONT on 01-16-2024 CT ABDOMEN AND PELVIS W CONT CT ABDOMEN AND PELVIS W CONT CT ABDOMEN AND PELVIS W CONT CLINICAL INFORMATION: 43 years old Female with chronic lower abdominal pain. TECHNIQUE/PROCEDURE: CT Abdomen and Pelvis with intravenous contrast. All CT scans at this facility use dose modulation, iterative reconstruction, and/or weight based dosing when appropriate to reduce radiation dose to as low as reasonably achievable Contrast: 100 mL Omnipaque 300 Diagnostic quality: Satisfactory COMPARISON: Pelvic ultrasound dated 12/17/2023. FINDINGS: Lower chest: Unremarkable. Liver: Mild focal fatty deposition along the falciform ligament. Gallbladder and bile ducts: Unremarkable. Adrenal glands: Unremarkable. Spleen: Unremarkable. Accessory splenule noted. Pancreas: Unremarkable. Kidneys, ureters, bladder: There is a 1.7 cm hypoenhancing lesion within the interpolar area of the left kidney that attenuates higher than simple fluid and is technically indeterminate. Ureters and urinary bladder are unremarkable. Reproductive organs: Uterus is present and unremarkable. There is a 6.7 x 5.6 x 7.6 cm thin-walled lesion within the anterior/left hemipelvis that attenuates slightly higher than simple fluid. Mild thickening and stranding surrounding the right ovary with adjacent curvilinear fluid signal which may represent hydrosalpinx. There is a 2.8 x 1.9 x 2.0 cm cystic lesion within the right ovary. Vasculature: No calcification of the abdominal aorta, focal dilation, or aneurysm. calcification of the abdominal aorta without focal dilation or aneurysm. Celiac trunk, SMA, CRISTIANA are patent. Peritoneum and retroperitoneum:No pneumoperitoneum or retroperitoneal fluid collection. GI: No hiatal hernia. No evidence of bowel obstruction. Appendix is present and unremarkable. Mild fecal burden. No evidence of acute diverticulitis. Bones and soft tissues: No osseous abnormality. Very small fat-containing umbilical hernia. Lymphadenopathy: No lymphadenopathy. IMPRESSION: * There is a 6.7 x 5.6 x 7.6 cm thin-walled cystic lesion within the anterior/left hemipelvis adjacent to the left ovary, this may represent a large ovarian cyst, however attenuates slightly higher than simple fluid and is technically indeterminate with an endometrioma considered in the differential diagnosis. MR pelvis with and without contrast may be helpful for further characterization if clinically indicated. * There is a 2.8 x 1.9 x 2.0 cm cystic lesion within the right ovary with adjacent serpiginous fluid signal which may represent an ovarian cyst with hydrosalpinx. This can also be further characterized on MRI pelvis with and without contrast. * There is a 1.7 cm hypoenhancing lesion within the interpolar area of the left kidney that attenuates slightly higher than simple fluid and is technically indeterminate. MR abdomen with and without contrast renal mass protocol recommended for further evaluation of this finding. Approved by Resident Evelio García DO on 01/16/2024 9:42 AM I, Emily Stone MD have personally reviewed the image(s) and agree with and/or edited the report Finalized by Emily Stone MD on 01/16/2024 10:37 AM [facility] US PELVIC WITH TRANSVAGINALo n 12-18-2023 US PELVIC WITH TRANSVAGINAL US PELVIC WITH TRANSVAGINAL Clinical history: Left ovarian cyst Findings:Transabdomin al ultrasound was performed of the pelvis.. Endovaginal sonography was also performed to better evaluate the pelvic and adnexal structures.. Uterus measures 8.5 cm in length and 3.7 cm AP diameter. Endometrium 12 mm. Myometrium unremarkable. Right ovary 10.7 x 5.7 x 5.1 cm. Left ovary 6.4 x 4.9 x 5.8 cm. Very large complex cystic mass with internal septations with internal echogenicity. This is difficult to measure but approaches 10 cm in size. In addition, there is a hypoechoic complex mass likely solid with the left ovary measuring 4.2 x 4.3 x 5.1 cm. No free fluid. Impression: Indeterminate bilateral ovarian masses of uncertain etiology. Differential diagnoses include cystadenoma, versus cystadenocarcinoma. Atypical functional cyst considered less likely. At a minimum follow-up pelvic ultrasound 2 to 3 months otherwise gynecologic/surgical evaluation advised Finalized by Luke Sutton MD on 12/18/2023 1:48 PM Normal [facility] Dario 11-26-2023 L Specimen: [id number] Received: 11/26/23 Status: NICHELLE Bautista Num: [id number] Spec Type: Cytology Subm Dr: Karla Steven Tissues: A CYST FLUID (RT CYST FLUID) Procedures: HE/2, Gross/Micro L4, Cyto Prepstain, PAPSTN Age/ Patient Sex Location Account Attending Physician Prema Jorge 43/F [facility] [id number] Karla Harris SPEC NUM: [id number] RECD: 11/26/23 STATUS: NICHELLE WEISSNawaf NUM: [id number] LYNDSAY: 11/26/23- SUBM DR: Karla Harris ENTERED: 11/26/[address] [facility] [address]: Cheryl,Lab SPEC TYPE: Cytology DEPT: [facility] ENTERED BY: [id number] RECV BY: [id number] ORDERED: HE/2, Gross/Micro L4, Cyto Prepstain, PAPSTN ORDERED: HE/2, Gross/Micro L4, Cyto Prepstain, PAPSTN Pathological Diagnosis Right ovarian cystic fibroid, cytology: -No evidence of malignant cell -Consistent with markedly degenerated hemorrhagic cystic content, including degenerated clot with occasional degenerated inflammatory cells, and in addition also only very rare benign epithelioid-like cells noted in the cell block section Gross Description Received is 20 ml dark red/brown opaque unfixed fluid for cytology said to have been obtained as right cyst fluid. ThinPrep and cell block preparations are prepared for microscopic examination. (CC/nh) Microscopic Description Microscopic examinations are performed supporting the above interpretation CPT Codes 24437 59730 -------- -------- Specimen: [id number] Received: 11/26/23 Status: NICHELLE Bautista Num: [id number] Spec Type: Cytology Subm Dr: Karla Harris Tissues: A CYST FLUID (RT CYST FLUID) Procedures: HE/2, Gross/Micro L4, Cyto Prepstain, PAPSTN -------- Patient: Prema Jorge [id number] (Continued) -------- Signed (signature on file) Chin-David Graves MD 11/27/23 1501 Normal [facility] Physician [facility] Dario 07-03-2023 L Specimen: [id number] Received: 07/04/23 Status: NICHELLE Bautista Num: [id number] Spec Type: Surgical Subm Dr: Karla Harris Tissues: A Endometrium - Curettings (ENDOMETRIAL LINING) Procedures: HE/2, Gross/Micro L4 Age/ Patient Sex Location Account Attending Physician Prema Jorge 42/F [facility] [id number] Karla Harris SPEC NUM: [id number] RECD: 07/04/23 STATUS: NICHELLE BAUTISTA NUM: [id number] LYNDSAY: 07/03/23- SUBM DR: Karla Harris ENTERED: 07/04/[address] [facility] [address]: Cheryl,Lab SPEC TYPE: Surgical DEPT: [facility] [...] in one cassette labeled A1. CPT Codes 33701 -------- -------- Specimen: [id number] Received: 07/04/23 Status: NICHELLE Bautista Num: [id number] Spec Type: Surgical Subm Dr: Karla Harris Tissues: A Endometrium - Curettings (ENDOMETRIAL LINING) Procedures: SABAS Gross/Micro L4 -------- Patient: LuisitoPrema [id number] (Continued) -------- Signed (signature on file) Marlin Garcia MD 07/09/232230 Normal [facility] PAP ACOG PANEL 2: 30 to 65on 07-02-2022 . . Normal [facility] Comment on above: Result Comment: Perf ormed at: [facility] Performed By: #### [id number] #### [facility] [address] [place] [address] Dr. Rhoda Graves Age Gdln ACOG Testing 30-65 Normal [facility] Comment on above: Performed By: #### 4 [id number] #### [facility] [address] [place] [address] Dr. Rhoda Graves DIAGNOSIS: Comment Normal [facility] Comment on above: Result Comment: NEGA TIVE FOR INTRAEPITHELIAL LESION OR MALIGNANCY. Performed at: [facility] Performed By: #### [id number] #### [facility] [address] [place] [address] Dr. hRoda Graves HPV Aptima Negative Normal Negative [facility] Comment on above: Result Comment: This nucleic acid amplification test detects fourteen high-risk HPV types (16,18,31,33,35,39,45,51,52,56,58,59,66,68) without differentiation. Performed at: =G Performed By: #### [id number] #### [facility] [address] [address] [address] Rhoda Graves HPV Genotype Reflex Comment Normal [facility] Comment on above: Result Comment: Crit eria not met, HPV Genotype not performed. Performed at: [facility] Performed By: #### [id number] #### [facility] [address] [place] [address] Dr. Rhoda Graves Methodology: Comment Normal [facility] Comment on above: Result Comment: This liquid based ThinPrep(R) pap test was screened with the use of an image guided system. Performed at: [facility] Performed By: #### [id number] #### [facility] [address] [address] [address] Rhoda Graves Note: Comment Normal [facility] Comment on above: Result Comment: The Pap smear is a screening test designed to aid in the detection of premalignant and malignant conditions of the uterine cervix. It is not a diagnostic procedure and should not be used as the sole means of detecting cervical cancer. Both false-positive and false-negative reports do occur. . Performed at: [facility] Performed By: #### [id number] #### [facility] [address] [address] [address] Rhoda Graves Performed by: Comment Normal [facility] Comment on above: Result Comment: Hernan Herrera, Forging Die Sinker (ASCP) Performed at: [facility] Performed By: #### [id number] #### [facility] [address] [address] [address] Rhoda Graves Specimen adequacy: Comment Normal [facility] Comment on above: Result Comment: Sati sfactory for evaluation. Endocervical and/or squamous metaplastic cells (endocervical component) are present. Performed at: [facility] Performed By: #### [id number] #### [facility] [address] [address] [address] Rhoda Graves Cytology Cervical or vaginal smear or scraping studyon 06-26-2022 [facility] Vital Signs Date Time Vital Sign Value Performing Clinician Facility 04-17-2024 13:03-0500 Body temperature 97.9 [degF] June Walkup PA Work Phone: [facility] 04-17-2024 13:03-0500 Diastolic blood pressure 82 mm[Hg] June Walkup PA Work Phone: [facility] 04-17-2024 13:03-0500 Heart rate 113 /min June Walkup PA Work Phone: [facility] 04-17-2024 13:03-0500 Respiratory rate 16 /min June Walkup PA Work Phone: [facility] 04-17-2024 13:03-0500 SaO2% (BldA) [Mass fraction] 96 % June MEDEMup PA Work Phone: [facility] 04-17-2024 13:03-0500 Systolic blood pressure 128 mm[Hg] June Walkup PA Work Phone: [facility] 04-17-2024 13:02-0500 Body mass index (BMI) [Ratio] 22.72 kg/m2 June Walkup PA Work Phone: [facility] 04-17-2024 13:02-0500 Body weight 69.81 kg June Walkup PA Work Phone: [facility] 04-17-2024 12:56-0500 Body height 175.3 cm June Walkup PA Work Phone: [facility] 03-24-2024 13:40-0500 Body height 175.3 cm [facility] [address] [place] [address] 03-24-2024 13:40-0500 Body mass index (BMI) [Ratio] 23.28 kg/m2 [facility] [address] [place] [address] [facility] 03-24-2024 13:40-0500 Body temperature 97.59 [degF] [facility] [address] [place] [address] [facility] 03-24-2024 13:40-0500 Body weight 71.5 kg [facility] [address] [place] [address] [facility] 03-24-2024 13:40-0500 Diastolic blood pressure 70 mm[Hg] [facility] [address] [place] [address] [facility] 03-24-2024 13:40-0500 Heart rate 86 /min [facility] [address] [place] [address] 03-24-2024 13:40-0500 Respiratory rate 24 /min [facility] [address] [place] [address] [facility] 03-24-2024 13:40-0500 SaO2% (BldA) [Mass fraction] 99 % [facility] [address] [place] [address] [facility] 03-24-2024 13:40-0500 Systolic blood pressure 140 mm[Hg] [facility] [address] [place] [address] [facility] 12-04-2023 08:56-0400 Body height 175.3 cm Jason Gaming MD Work Phone: [facility] 12-04-2023 08:56-0400 Body mass index (BMI) [Ratio] 23.45 kg/m2 Jason Gaming MD Work Phone: [facility] 12-04-2023 08:56-0400 Body temperature 97.59 [degF] Jason Gaming MD Work Phone: [facility] 12-04-2023 08:56-0400 Body weight 72.03 kg Jason Gaming MD Work Phone: [facility] 12-04-2023 08:56-0400 Diastolic blood pressure 80 mm[Hg] Jason Gaming MD Work Phone: [facility] 12-04-2023 08:56-0400 Heart rate 88 /min Jason Gaming MD Work Phone: [facility] 12-04-2023 08:56-0400 SaO2% (BldA) [Mass fraction] 97 % Jason Gaming MD Work Phone: [facility] 12-04-2023 08:56-0400 Systolic blood pressure 138 mm[Hg] Jason Gaming MD Work Phone: [facility] 06-10-2023 16:31-0500 Body mass index (BMI) [Ratio] 25.55 kg/m2 Karla Steven DO Work Phone: [facility] 06-10-2023 16:31-0500 Body weight 78.47 kg Karla Steven DO Work Phone: [facility] 06-10-2023 16:31-0500 Diastolic blood pressure 80 mm[Hg] Karla Steven DO Work Phone: [facility] 06-10-2023 16:31-0500 Systolic blood pressure 138 mm[Hg] Karla Steven DO Work Phone: [facility] Encounters Encounter Date Encounter Type Care Provider Facility Start: 08-12-2024 End: 08-12-2024 Bamboo flowsheet Karla Steven DO Work Phone: [facility] Start: 08-12-2024 End: 08-12-2024 Eduboo flowsheet Karla Harris DO Work Phone: [facility] Start: 04-17-2024 End: 04-17-2024 Postop follow up visit related to original px June Hilton Joel MARIE [facility] Comment on above: Postoperative visit (Primary Dx) Start: 04-03-2024 End: 04-03-2024 Evaluation and management of inpatient EMILY Acuña SONYA [facility] Start: 04-03-2024 End: 04-03-2024 Evaluation and management of inpatient JASON Christensen AMBERLY [facility] Start: 04-02-2024 End: 04-02-2024 Documentation procedure Margoth Berry RN [facility] Start: 03-26-2024 End: 03-26-2024 Telephone encounter Kvng Ballesteros RN [facility] Start: 03-24-2024 End: 03-24-2024 Patient encounter procedure [facility] 16 [facility] On [facility] Comment on above: Cyst of left ovary ( Primary Dx); Left ovarian cyst; Preop testing Start: 03-24-2024 End: 03-24-2024 Patient encounter status [facility] Start: 03-24-2024 End: 03-24-2024 ambulatory JASON Christensen AMBERLY [facility] Start: 03-24-2024 Encounter for other preprocedural examination [facility] Start: 01-23-2024 End: 01-23-2024 Orders Only Jason Gaming MD Work Phone: [facility] Comment on above: Left ovarian cyst (P rimary Dx); Preop testing Start: 01-23-2024 End: 01-23-2024 Patient encounter status Jason Gaming MD Work Phone: [facility] Start: 01-22-2024 End: 01-22-2024 Office outpatient visit 25 minutes Jason Gaming MD Work Phone: [facility] Comment on above: Left ovarian cyst (P rimary Dx) Start: 01-22-2024 End: 01-22-[address] [facility] Start: 01-16-2024 End: 01-16-2024 ambulatory [facility] Start: 12-25-2023 End: 12-25-2023 Office outpatient visit 25 minutes Jason Gaming MD Work Phone: [facility] Comment on above: Left ovarian cyst (P rimary Dx) Start: 12-25-2023 End: 12-25-[address] [facility] Start: 12-17-2023 End: 12-17-2023 ambulatory [facility] Start: 12-04-2023 End: 12-04-2023 Office outpatient new 60 minutes Jason Gaming MD Work Phone: [facility] Comment on above: Left ovarian cyst (P rimary Dx) Start: 12-04-2023 End: 12-04-[address] [facility] Start: 12-03-2023 End: 12-03-2023 ambulatory MARY GIANCARLO Not Available Start: 11-26-2023 End: 11-26-2023 ambulatory Karla Steven [facility] Work Phone: Start: 11-26-2023 End: 11-26-2023 Departed Referred DO Karla Steven Work Phone: [facility] Start: 11-18-2023 End: 11-18-2023 ambulatory KARLA STEVEN Not Available Start: 11-12-2023 End: 11-12-[address] [facility] Start: 09-09-2023 End: 09-09-2023 ambulatory KARLA STEVEN Not Available Start: 08-07-2023 End: 08-07-2023 ambulatory KARLA STEVEN Not Available Start: 07-04-2023 End: 07-04-2023 ambulatory Karla Harris [facility] Work Phone: Start: 07-04-2023 End: 07-04-2023 Departed Referred Karla Harris Work Phone: [facility] Start: 07-03-2023 End: 07-03-2023 ambulatory KARLA LEMUSO Not Available Start: 06-10-2023 End: 06-10-2023 ambulatory KARLA LEMUSO Not Available Start: 06-10-2023 End: 06-10-2023 Office outpatient visit 15 minutes Karla Harris DO Work Phone: [facility] Comment on above: Abnormal uterine ble eding (AUB); PCOS (polycystic ovarian syndrome) Start: 06-26-2022 End: 06-26-[address] BELINDA BELL . Facility: Procedures Date Procedure Procedure Detail Performing Clinician Start: 03-24-2024 Comprehensive metabo lic panel Jason Gaming MD Work Phone: Start: 06-26-2022 Cytp cerv/vag auto 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 Mary MARIE Work Phone: Start: 10-06-2015 Microscopic observat ion [Identifier] in Cervix by Cyto stain Jason Gaming MD Work Phone: Plan of Treatment Date Care Activity Detail Author Start: 04-17-2025 Adult BMI Screening Adult BMI Screen ing [facility] Start: 04-03-2025 Tobacco Screening Tobacco Screening [facility] Start: 03-24-2025 Adult BMI Screening Adult BMI Screen ing [facility] Start: 03-24-2025 Tobacco Screening Tobacco Screening [facility] Start: 12-03-2024 Adult BMI Screening Adult BMI Screen ing [facility] Start: 08-12-2024 End: 08-12-2024 Patient encounter procedure 08/12/2024 4:00 PM EDT Office Visit [facility] [address] [place] [id number] Karla Harris, DO [address] [place] [address] Arrived [facility] Comment on above: Arrived Start: 04-17-2024 End: 04-17-2024 Patient encounter procedure 04/17/2024 1:00 PM EST Office Visit [facility] [address] [place] [address] June Maldonado PA [address] [place] [address] [facility] Start: 04-03-2024 End: 04-03-2024 Admission to same day surgery center [facility] - Surgery Comment on above: DAVINCI CYSTECTOMY O VARIAN [80091 (CPT )] DAVINCI DV5 CYSTECTO MY OVARIAN [00062 (CPT )] Start: 04-03-2024 End: 04-03-2024 Laps fulg/exc ovary viscera/peritoneal surface [facility] Start: 04-03-2024 Subsequent hospital visit by physician [facility] - Surgery Start: 03-24-2024 End: 03-24-2024 Patient encounter procedure 03/24/2024 1:30 PM EST [facility] [address] [address] [facility] On [facility] Start: 01-22-2024 End: 01-22-2024 Telemedicine consultation with patient 01/22/2024 2:30 PM EDT Telemedicine [facility] [address] [facility] [address] [place] [address] Jason Gaming MD [address] [facility] [place] [address] [facility] Start: 01-12-2024 Influenza vaccination Influenza Vacc ine [facility] Start: 12-25-2023 End: 12-24-2024 CT Abdomen and Pelvis W contrast IV CT abdomen and pelvis with contrast Imaging Routine Left ovarian cyst Expected: 12/25/2023, Expires: 12/24/2024 [facility] Work Phone: Comment on above: Expected: 12/25/2023 , Expires: 12/24/2024 Start: 12-25-2023 End: 12-25-2023 Telemedicine consultation with patient 12/25/2023 11:30 AM EDT Telemedicine [facility] [address] [place] [address] [address] [place] [address] Jason Gaming MD [address] [place] [address], [address] [place] [address] [facility] Start: 12-04-2023 End: 12-03-2024 US Pelvis Ultrasound pelvic complete Imaging Routine Left ovarian cyst Expected: 12/04/2023, Expires: 12/03/2024 [facility] Work Phone: Comment on above: Expected: 12/04/2023 , Expires: 12/03/2024 Start: 08-07-2023 End: 08-07-2023 Patient encounter procedure 08/07/2023 4:00 PM EDT Office Visit [facility] [address] [place] [phone] Karla Harris, DO [address] [place] [address] [facility] Start: 07-03-2023 End: 07-03-2023 Patient encounter procedure 07/03/2023 3:30 PM EST Procedure Visit [facility] [address] [facility] [facility] [place] [phone] Karla Harris, DO [address] [place] [address] [facility] Start: 07-03-2023 End: 07-03-2023 Professional / ancillary services management 07/03/2023 2:30 PM EST Ancillary Procedure [facility] [address] [place] [place] [address] [facility] Start: 06-10-2023 End: 06-10-2024 DHEA DHEA Lab Routine PCOS (polycystic ovarian syndrome) Expected: 06/10/2023 (Approximate), Expires: 06/10/2024 [facility] Comment on above: Expected: 06/10/2023 (Approximate), Expires: 06/10/2024 Start: 06-10-2023 End: 06-10-2024 US for US PELVIS-TRANSVAG IF INDICATED Imaging Routine PCOS (polycystic ovarian syndrome) Expected: 06/10/2023 (Approximate), Expires: 06/10/2024 [facility] Comment on above: Expected: 06/10/2023 (Approximate), Expires: 06/10/2024 Start: 10-05-2018 Screening for malign ant neoplasm of cervix Pap Smear [facility] Start: 1997 DTaP,Tdap and Td Vaccines (1 - Tdap) DTaP,Tdap and Td Vaccines (1 - Tdap) [facility] Start: 1990 Depression Screening Depression Scre ening [facility] Start: 1990 Tobacco Screening Tobacco Screening [facility] CBC W Auto Different ial panel - Blood CBC and differential Lab Routine PCOS (polycystic ovarian syndrome) Ordered: 06/10/2023 [facility] Comment on above: Ordered: 06/10/2023 End: 01-22-2025 CBC W Auto Differential panel - Blood CBC with auto diff Lab Routine Left ovarian cyst Preop testing 1 Occurrences starting 01/23/2024 until 01/22/2025 [employer] Work Phone: Comment on above: 1 Occurrences starti ng 01/23/2024 until 01/22/2025 End: 01-22-2025 Comprehensive metabolic 2000 panel - Serum or Plasma Comprehensive metabolic panel Lab Routine Left ovarian cyst Preop testing 1 Occurrences starting 01/23/2024 until 01/22/2025 [facility] Comment on above: 1 Occurrences starti ng 01/23/2024 until 01/22/2025 DHEA-sulfate DHEA-sulfate Lab Routine PCOS (polycystic ovarian syndrome) Ordered: 06/10/2023 [facility] Comment on above: Ordered: 06/10/2023 Follicle stimulating hormone Follicle stimulating hormone Lab Routine PCOS (polycystic ovarian syndrome) Ordered: 06/10/2023 [facility] Comment on above: Ordered: 06/10/2023 hCG, quantitative, hCG, quantitative, Lab Routine PCOS (polycystic ovarian syndrome) Ordered: 06/10/2023 [facility] Work Phone: Comment on above: Ordered: 06/10/2023 Hemoglobin A1c measurement Hemoglobin A1c Lab Routine Abnormal uterine bleeding (AUB) PCOS (polycystic ovarian syndrome) Ordered: 06/10/2023 [facility] Comment on above: Ordered: 06/10/2023 Luteinizing hormone Luteinizing hormone Lab Routine PCOS (polycystic ovarian syndrome) Ordered: 06/10/2023 [facility] Comment on above: Ordered: 06/10/2023 End: 01-22-2025 , urine , urine Lab Routine Left ovarian cyst Preop testing 1 Occurrences starting 01/23/2024 until 01/22/2025 [facility] Comment on above: 1 Occurrences starti ng 01/23/2024 until 01/22/2025 Thyrotropin [Units/volume] in Serum or Plasma TSH Lab Routine PCOS (polycystic ovarian syndrome) Ordered: 06/10/2023 [facility] Comment on above: Ordered: 06/10/2023 Thyroxine (T4) free [Mass/volume] in Serum or Plasma T4, free Lab Routine PCOS (polycystic ovarian syndrome) Ordered: 06/10/2023 [facility] Comment on above: Ordered: 06/10/2023 Payers Date Payer Category Payer Self-pay 2023 Unknown [employer] [id number] 2023-Present [phone] [address] [address] [place] [address] [id number] 2022 Managed Care Other (unspecified) [employer] [id number] 2022 Private Health Insurance [id number] 1978 Unknown [id number] 2.16.840.1.254162.3.579. 2.593 1978 Unknown [id number] 2.16.840.1.899441.3.579. 2.903 1978 Unknown [id number] 2.16.840.1.329627.3.579. 2.1258 1978 Unknown [id number] 2.16.840.1.139807.3.579. 2.9 1978 Unknown [id number] 2.16.840.1.709423.3.579. 2.1258 1978 Unknown [id number] 2.16.840.1.750049.3.579. 2.9 1978 Unknown [id number] 2.16.840.1.128593.3.579. 2.1258 1978 Unknown [id number] 2.16.840.1.135994.3.579. 2.1258 1978 Unknown [id number] 2.16.840.1.657224.3.579. 2.1285 1978 Unknown [id number] 2.16.840.1.932090.3.579. 2.1285 1978 Unknown [id number] 2.16.840.1.463138.3.579. 2.1285 1978 Unknown [id number] 2.16.840.1.035518.3.579. 2.1286 1978 Unknown [id number] 2.16.840.1.235538.3.579. 2.1286 1978 Unknown [id number] 2.16.840.1.348620.3.579. 2.1286 1978 Unknown [id number] 2.16.840.1.186675.3.579. 2.1286 1978 Unknown [id number] 2.16.840.1.157486.3.579. 2.1286 1978 Unknown [id number] 2.16.840.1.540389.3.579. 2.1286 1959 Unknown [id number] Unknown [id number] 2.16.840.1.595906.3.579. 2.531 Social History Date Type Detail Facility Start: 05-20-2023 End: 03-24-2024 Tobacco smoking status [facility] Never smoked tobacco [facility] Start: 06-10-2023 End: 12-03-2023 Alcohol intake Current drinker of alcohol (finding) [facility] Start: 06-10-2023 End: 03-24-2024 History of Social function [facility] Start: 06-10-2023 End: 03-24-2024 Tobacco use panel [facility] Start: 05-20-2023 Alcohol Comment Occasional alcohol u se [facility] Start: 1980 Sex Assigned At Not on file N [facility] Start: 1980 Sex Assigned At Female F [facility] Tobacco smoking stat [facility] Tobacco smoking consumption unknown [facility] Start: 03-24-2024 Tobacco use and exposure Smokeless tobacco non-user [facility] Start: 03-24-2024 End: 04-03-2024 Alcoholic beverage intake Not Asked [facility] Within the past 12 months we worried whether our food would run out before we got money to buy more. Never True [facility] Start: 03-24-2024 Alcohol Comment very rare [facility] Start: 11-27-2023 Sex Female (finding) [facility] Clinical Notes 06-10-2023 to 04-17-2024 CYNTHIA Victoria - 04/17/2024 1:00 PM Negra Berry RN - 04/02/2024 3:18 PM ESTTelephone Encounter - Kvng Ballesteros RN - 03/26/2024 9:11 AM ESTPatient Instructions Note Date & Type Note Facility 04-17-2024 History of Presen t illness Narrative Subjective: Prema is a 43 y.o. female s/p RA left ovarian cystectomy on 04/03/24. Pathology revealed: Benign serous cystadenoma. She is doing well post-operatively. Normal bowel and bladder habits. No fevers, chills, N/V, SOB, CP. She was originally referred here for consultation from for evaluation and management of enlarged left ovarian cyst with multiple intra-abdominal adhesions. The patient presented with the acute onset of abdominal discomfort and had a diagnostic laparoscopy that revealed enlarged left ovarian cyst approximately 7-8 cm in size with adhesive disease to the left pelvic sidewall and rectosigmoid colon. Prema : Denies Early satiety Denies Abdominal distention Denies Leg swelling Denies Shortness of breath Denies Vaginal bleeding Denies Change in bowel habits Denies Change in bladder habits Denies Nausea and vomiting All other systems negative, unless specifically noted in HPI. Past Gynecologic History: OB History No obstetric history on file. Patient's last menstrual period was 03/24/2024. Hormonal Contraceptives No HRT use No History of abnormal pap No Past Surgical History: Procedure Laterality Date DAVINCI DV5 CYSTECTOMY OVARIAN Left 04/03/2024 Performed by Jason Gaming MD at [facility] OVARIAN CYST DRAINAGE Left 12/2023 attempted removal WISDOM TOOTH EXTRACTION Past Medical History: Diagnosis Date Head injury fall off horse Ovarian cyst on left Family History Problem Relation Age of Onset Anesthesia problems Neg Hx Social History Tobacco Use Smoking status: Never Smokeless tobacco: Never Substance Use Topics Alcohol use: Not on file Comment: very rare Review of Symptoms: Pertinent items are noted in HPI. Objective: BP 128/82 Pulse 113 Temp 36.6 C (97.9 F) (Skin) Resp 16 Ht 175.3 cm (5' 9.02 ) Wt 69.8 kg (153 lb 14.4 oz) LMP 03/24/2024 SpO2 96% BMI 22.72 kg/m ECO General appearance: alert, appears stated age and cooperative Head: Normocephalic, without obvious abnormality, atraumatic Abdomen: Soft, non-tender, incisions CDI without sign of infection, non-distended, no guarding or rebound tenderness Extremities: extremities normal, atraumatic, no cyanosis, pulses intact Pulses: 2+ and symmetric Lymph nodes: Cervical, supraclavicular, and axillary nodes normal. Neurologic: Grossly normal Labs: Lab Results Component Value Date WBC 8.0 03/24/2024 HGB 14.1 03/24/2024 HCT 42.0 03/24/2024 MCH 29.2 03/24/2024 MCHC 33.6 03/24/2024 PLT 300 03/24/2024 MPV 8.8 03/24/2024 RDW 13.6 03/24/2024 Lab Results Component Value Date BUN 18 03/24/2024 K 3.7 03/24/2024 CL 101 03/24/2024 ALBUMIN 4.4 03/24/2024 AST 13 03/24/2024 Assessment: Patient is diagnosed with Patient Active Problem List Diagnosis Left ovarian cyst Plan: 1. The patient has a documented plan of care to address pain. 2. 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 was physically present in the office, available for the entirety of the patient's visit, and participated in the coordination of treatment plan. CYNTHIA Victoria 04/17/24 1320 documented in this encounter [facility] 04-02-2024 History of Presen t illness Narrative BLOOD MANAGEMENT (BLOODLESS CARE) Patient has been admitted to the Bloodless Care Program. Confirmed with patient her request for bloodless care services. Reviewed bloodless care choices and her decisions are documented below. Patient has declined a visit in preop. We have received the following papers: Blood refusal consent Please Note: Patient refuses all blood transfusions under any circumstances, All NO BLOOD indicators are in place, Micro/min draws when possible, and Avoid daily/unnecessary labwork when able Bloodless Care Patient Choices: Albumin EPO Clotting Factors Immunoglobulins Topical Agents Platelet Gel Epidural Blood Patch Cell Saver Hemodilution Hemodialysis Heart-Lung Bypass Apheresis Past Medical History: Past Medical History: Diagnosis Date Head injury fall off horse Ovarian cyst on left Past Surgical History: Past Surgical History: Procedure Laterality Date OVARIAN CYST DRAINAGE Left 12/2023 attempted removal WISDOM TOOTH EXTRACTION Allergies: No Known Allergies Lab Results Component Value Date HGB 14.1 03/24/2024 Thank you for the opportunity to assist in the care of your patient. Please feel free to contact us with any questions or concerns. [facility] Blood Management/ Bloodless Care [facility] [address] [place] [id number] Office: [phone] documented in this encounter [facility] 03-26-2024 Miscellaneous Notes Outpatient referral received to Bloodless Care for education on blood alternatives. Left vm for patient to call our office. Kvng MONTOYA Bloodless Care [phone] documented in this encounter [facility] 03-26-2024 Telephone encounter Note Outpatient referral received to Bloodless Care for education on blood alternatives. Left vm for patient to call our office. Kvng MONTOYA Bloodless Care [phone] [facility] 03-24-2024 Instructions Emily Morales RN - 03/24/2024 1:30 PM EST Your surgery/procedure is scheduled at [facility] on April 03 at 730 am Arrival Time 530 am [facility] Address: [address] [place] [address]. [place] [address] Park in [address] Parking lot located on [facility]. Report to the Entrance B. Check in at the information desk the surgery. The waiting room located on the second floor. If you have any questions prior to surgery, please call Pre-Admission Clinic at [phone] between 7:30 am and 4:30 pm Saturday through Saturday. If you have questions the morning of surgery, please call the Pre-op Department at [phone]. Notify your SURGEON if you develop any illness such as a cold, cough, fever, sore throat, vomiting or are hospitalized between now and your surgery. Medication Instructions (Do not stop your medications without consulting the prescribing physician). Take the following medications the morning of surgery with a sip of water: no meds Diabetic or Weight loss medications: HOLD n/a LAST DOSE n/a Take inhalers as prescribed the morning of surgery. Due to the risk associated with these medications. If these medications are not held per instruction below, your surgery is at an increased risk for cancellation. SGLT2 Medications- Hold 3 days prior to surgery: Jardiance, Empagliflozin, Farxiga, Dapagliflozin, Invokana, Canagliflozin, Trijardy, Synjardy GLP-1 Medications (Injection or Pill)- If taken daily hold day of surgery. If taken weekly, hold 1 week prior to surgery: Adlyxin, Byetta, Bydureon, Ozempic, Rybelsus,Trulicity, Victoza, Wegovy, Lixisenatide, Exenatide, Semaglutide, Dulaglutide, Liraglutide GIP/GLP-1(Injection or Pill)- If taken daily hold day of surgery. If taken weekly, hold 1 week prior to surgery: Mounjaro . Blood thinners: Please contact your prescribing physician regarding a stop/hold date for these medications. Medications such as Coumadin, Heparin, Aspirin, Plavix, Eliquis, Pradaxa Diabetics: If you take insulin, contact your prescribing doctor for instructions on how to manage this the night before and the morning of surgery. Non-steriodal Anti-Inflammatory Drugs (NSAIDS)- Hold 7 days prior to surgery unless otherwise directed by your surgeon. Vitamins/Herbal Products: You may continue to take your prescribed vitamins such as potassium, iron, vitamin B, vitamin C, or multivitamin unless specifically instructed by your surgeon to hold. STOP taking all herbal products/teas one week prior to your surgery. Marijuana: Stop marijuana 72 hours prior to surgery, stop CBD oil 48 hours prior to surgery. If you have been given bowel prep instructions by your surgeon, please call the surgeon's office with any questions about these instructions. What do I do the day of Surgery? Age 2 through adult - Stop all solids by midnight, You may have clear liquids up to 2 hours before surgery, unless otherwise instructed by your surgeon. Clear liquids are: water, sports drinks such as Gatorade or G2, or apple juice. You may NOT have: tube feedings, dairy products, alcoholic beverages, orange juice, or any liquids with solids or pulp in it. If applicable, shower again with CHG soap the morning of your surgery. If you received a green plastic bracelet, bring it with you the day of surgery and your nurse will put it on you. In order to help prevent infection post-operatively, you may be asked to use a CHG mouthwash when you arrive to the Pre-op area. Your nurse will provide instruction the morning of. What do I need to do to prepare for surgery? If you will be going home the same day as your surgery, arrange for an adult over [address] Riding in a bus or taxi by yourself is not permitted. You should not smoke or drink alcohol 24 hours before your surgery. Alcohol thins the blood and may cause bleeding problems during surgery. Smoking increases the risk of breathing problems after surgery. Do not use lotions, creams, powders, perfume, make up, cologne or after-shaves day of surgery. Remove ALL jewelry including wedding rings, body piercings (including dermal piercings ,hair extensions that contain metal, nail icelandic, make-up, and contact lens. You may brush your teeth the morning of surgery, but do not swallow the water. Wear your dentures and partial plates to the hospital (no adhesive). Shower the night the before. If applicable, use the CHG (chlorhexidine gluconate) soap or wipes What should I bring to the hospital? If you received a green plastic bracelet, bring it with you the day of surgery and your nurse will put it on you. Eyeglass or contact lens case If you will be spending the night, please bring personal care items and leave them in the car until you are taken to your room after surgery. Leave ALL valuables at home. If any of these instructions conflict with those you received from the surgeon, please seek clarification from your surgeon's office. DEEP BREATHING EXERCISES This exercise helps promote good air exchange and helps to prevent pneumonia after surgery. Breathe in slowly and deeply through the nose. Hold your breath for a few seconds and then exhale slowly through the mouth. Repeat this three times and then cough.Coughing helps to clear your lungs. If you have had a surgery with an incision into your abdomen or chest, press gently against your incision with a pillow or a folded blanket when you cough. Please be aware - it may not be naqvi to cough following some types of surgeries involving the eyes, ears, sinuses and throat. Always follow your doctor's instructions. LEG EXERCISE These exercises help promote good circulation and help to prevent blood clots after surgery. Point your toes to the ceiling and then point them to the wall. Do this slowly about 15-20 times. You may also move your feet in circles. Do the exercise that is most comfortable for you. If you have had surgery involving your shoulder or arm, we recommend you move your fingers. PRACTICING We ask that you begin practicing these exercises before your surgery. After surgery try to do both exercises at least every 2 hours during the day and early evening. SURGICAL SITE INFECTION PREVENTION What is a Surgical Site Infection? Infection can happen to the area of the body where surgery is done. This is called a surgical site infection (SSI). A SSI does not happen very often. Can SSIs be treated? Antibiotics are used to treat SSI. Some patients may need another surgery to treat the infection. The doctor will discuss treatment options with you. What are some of the things that hospitals are doing to prevent SSIs? Soap and water or alcohol hand rub are used before and after caring for each patient. Special soap is used to clean surgery workers hands and arms just before the surgery. Masks, gowns, gloves and hair covers are worn during the surgery to keep the area clean. Hair in the surgery area may be removed with clippers (not razors). A special soap that kills germs is used to clean the skin at the surgery site. Antibiotics may be given before the surgery starts. What can you do to prevent SSIs? Before surgery: You may be asked to shower or bathe with a special soap that kills germs the night before and the day of surgery. Use the soap as you were told. If you smoke, stop or cut down. Ask your doctor about ways to quit. Do not shave near where you will have surgery. Shaving can irritate the skin and make it easier to get and infection. After surgery: Be sure that the doctors and nurses clean their hands before and after touching you. Be sure your family and friends clean their hands before and after visiting you. Do not be afraid to remind them. * Care for your wound at home as told by your doctor or nurse * Call your doctor right away if you have fever, redness, increased pain, or drainage at the surgery site. Further questions? Contact the doctor, nurse or the Infection Prevention and Control department if you have any questions. PATIENT RIGHTS AND RESPONSIBILITIES As a patient at [facility], you have the right to: Receive medical care and be informed of who is taking care of you Be treated with dignity and respect Have a family member/loss prevention representative of choice and your physician notified of your admission Receive information and actively participate in decisions about your care and treatment Refuse care, treatment and services Decide who may provide your support and speak for you Access rastafari and spiritual services Participate in ethical issues and questions about your care Receive private and confidential care Have appropriate assessment and management of your pain Know guest visitation restrictions or limitations Have an advance directive Access protective services Consent or refuse to participate in research studies or production or recordings, films or other images Have resolution of your complaints Receive information of hospital charges and payment methods Patient/patient loss prevention representative responsibilities are to: Provide information about health status to facilitate care, treatment and services Follow the treatment, plan, keep appointments and speak up when you do not understand the plan Respect the rights of other patients and healthcare personnel Follow organizational rules and regulations that support quality care and a safe environment Fulfill financial obligations as promptly as possible Bathing Before Surgery- Patients greater than 2 months of age You can help to lower your chance of infection at the site of your surgery by showering or bathing with a special soap called chlorhexidine gluconate (CHG). Germs live on your skin. This special soap will help lower the amount of germs so they do not get into your surgery site. Special points to know: Do not use this soap if you know that you are allergic to CHG. Shower or bathe with CHG the night before and the morning of surgery. Do not shave the area of your body where the surgery will be done within 7 days of surgery. The CHG may make your skin a little dry, but do not use lotion. Steps for Bathing: Wash your hair as usual with your normal shampoo. Rinse your hair and body well after you shampoo to get rid all of the shampoo. Wash gently with the CHG from the neck down, but do not scrub the skin to hard. Be sure to wash the area of your surgery very well. If showering, turn the water off while washing and then turn the water back onto rinse. Do not get CHG in the genital (private) area. Do not get CHG in the eyes, ears, nose or mouth. (If the soap gets into the eyes, flush them immediately with water). Do not wash with regular soap after CHG is used. Pat skin dry with a soft, clean towel. Patient should sleep in freshly laundered night clothes and report for surgery in clean clothes. documented in this encounter [facility] 01-22-2024 History of Presen t illness Narrative Video Visit via Real-time Synchronous Audiovisual Provider Location: [facility] [address] [facility] [id number] Patient Location: Patient's home Video Visit Consent Statement: I discussed risks, benefits, and alternatives of a real-time synchronous audiovisual consultation with the patient (and any accompanying persons) including the risks that the patient's personal health details and medical records will be discussed over real-time, synchronous, interactive video/audio/telecommunication technology, the visit will not be recorded without the express consent of both the provider and the patient, and that there are some limitations compared to [id number] evaluations. The patient consented to the presence of additional virtual and/or in-person participants. We elected to proceed. Subjective: Prema is a 43 y.o. female here for consultation from for evaluation and management of enlarged left ovarian cyst with multiple intra-abdominal adhesions. The patient presented with the acute onset of abdominal discomfort and had a diagnostic laparoscopy that revealed enlarged left ovarian cyst approximately 7-8 cm in size with adhesive disease to the left pelvic sidewall and rectosigmoid colon, the cyst was drained and she is here to discuss further management today. We reviewed her CT imaging in detail together extensively today and discuss surgical planning. We will plan for minimally invasive excision of her left ovarian cyst with possible oophorectomy. Oncology History No overview note Prema : Denies Early satiety Denies Abdominal distention Denies Leg swelling Denies Shortness of breath Denies Vaginal bleeding Denies Change in bowel habits Denies Change in bladder habits Denies Nausea and vomiting All other systems negative, unless specifically noted in HPI. Past Gynecologic History: OB History No obstetric history on file. No LMP recorded. Hormonal Contraceptives No HRT use No History of abnormal pap No No past surgical history on file. No past medical history on file. No family history on file. Social History Tobacco Use Smoking status: Not on file Smokeless tobacco: Not on file Substance Use Topics Alcohol use: Not on file Review of Symptoms: Pertinent items are noted in HPI. Objective: There were no vitals taken for this visit. ECO- Asymptomatic General appearance: alert, appears stated age and cooperative Labs: No results found for: WBC , RBC , HGB , HCT , MCH , MCHC , PLT , MPV , RDW No results found for: BUN , NA , K , CL , BICARBONATE , GLUCOSE , ALBUMIN , PROT , CA , ALKP , AST , LABBILI No results found for: GGT No results found for: LDH No results found for: MG No results found for: PHOS No results found for: URIC Assessment: Patient is diagnosed with Patient Active Problem List Diagnosis Left ovarian cyst Plan: 1. The patient has a documented plan of care to address pain. 2. Left-sided ovarian cyst status post diagnostic laparoscopy with drainage-we will plan for robotically assisted left ovarian cystectomy possible oophorectomy for persistent left ovarian cyst. 3. Plan for preop visit 4. Total time spent was 33 minutes: Preparing to see the patient (e.g., review of tests) Obtaining and/or reviewing separately obtained history Performing a medically appropriate examination and/or evaluation Counseling and educating the patient/family/caregiver Ordering medications, tests, or procedures Referring and communicating with other health care director rn (not separately reported) Documenting clinical information in the electronic or other health record Jason Gaming MD documented in this encounter [facility] 12-25-2023 History of Presen t illness Narrative Video Visit via Real-time Synchronous Audiovisual Provider Location: [facility] [address] [place] [address] Patient Location: Patient's home Video Visit Consent Statement: I discussed risks, benefits, and alternatives of a real-time synchronous audiovisual consultation with the patient (and any accompanying persons) including the risks that the patient's personal health details and medical records will be discussed over real-time, synchronous, interactive video/audio/telecommunication technology, the visit will not be recorded without the express consent of both the provider and the patient, and that there are some limitations compared to [id number] evaluations. The patient consented to the presence of additional virtual and/or in-person participants. We elected to proceed. Subjective: Prema is a 43 y.o. female here for consultation from for evaluation and management of enlarged left ovarian cyst with multiple intra-abdominal adhesions. The patient presented with the acute onset of abdominal discomfort and had a diagnostic laparoscopy that revealed enlarged left ovarian cyst approximately 7-8 cm in size with adhesive disease to the left pelvic sidewall and rectosigmoid colon, the cyst was drained and she is here to discuss further management today. Based on her presentation I am unsure if this is a partially ruptured hemorrhagic corpus luteum cyst or an endometrioma, we discussed performing repeat imaging in the next couple of weeks for further assessment. Her symptoms have completely resolved today. We reviewed her repeat ultrasound which reveals a mildly increased left ovarian cysts, she has a new enlarged and complex fluid collection around the right ovary, we did discuss minimally invasive surgical excision, this time the patient is not having any symptoms and she would elect for repeat imaging with CT guided imaging in 4 weeks. Oncology History No overview note Prema : Denies Early satiety Denies Abdominal distention Denies Leg swelling Denies Shortness of breath Denies Vaginal bleeding Denies Change in bowel habits Denies Change in bladder habits Denies Nausea and vomiting All other systems negative, unless specifically noted in HPI. Past Gynecologic History: OB History No obstetric history on file. No LMP recorded. Hormonal Contraceptives No HRT use No History of abnormal pap No No past surgical history on file. No past medical history on file. No family history on file. Social History Tobacco Use Smoking status: Not on file Smokeless tobacco: Not on file Substance Use Topics Alcohol use: Not on file Review of Symptoms: Pertinent items are noted in HPI. Objective: There were no vitals taken for this visit. ECO- Asymptomatic General appearance: alert, appears stated age and cooperative Labs: No results found for: WBC , RBC , HGB , HCT , MCH , MCHC , PLT , MPV , RDW No results found for: BUN , NA , K , CL , BICARBONATE , GLUCOSE , ALBUMIN , PROT , CA , ALKP , AST , LABBILI No results found for: GGT No results found for: LDH No results found for: MG No results found for: PHOS No results found for: URIC Assessment: Patient is diagnosed with Patient Active Problem List Diagnosis Left ovarian cyst Plan: 1. The patient has a documented plan of care to address pain. 2. Left-sided ovarian cyst status post diagnostic laparoscopy with drainage-would plan for repeat imaging in [address]-guided imaging to Bey characterize the pelvis and other abdominal structures. 3. Plan for video visit post repeat imaging. 4. Total time spent was 33 minutes: Preparing to see the patient (e.g., review of tests) Obtaining and/or reviewing separately obtained history Performing a medically appropriate examination and/or evaluation Counseling and educating the patient/family/caregiver Ordering medications, tests, or procedures Referring and communicating with other health care director rn (not separately reported) Documenting clinical information in the electronic or other health record Jason Gaming MD [facility] History of Presen t illness Narrative Subjective: Prema is a 43 y.o. female here for consultation from for evaluation and management of enlarged left ovarian cyst with multiple intra-abdominal adhesions. The patient presented with the acute onset of abdominal discomfort and had a diagnostic laparoscopy that revealed enlarged left ovarian cyst approximately 7-8 cm in size with adhesive disease to the left pelvic sidewall and rectosigmoid colon, the cyst was drained and she is here to discuss further management today. Based on her presentation I am unsure if this is a partially ruptured hemorrhagic corpus luteum cyst or an endometrioma, we discussed performing repeat imaging in the next couple of weeks for further assessment. Her symptoms have completely resolved today. Oncology History No overview note Prema : Denies Early satiety Denies Abdominal distention Denies Leg swelling Denies Shortness of breath Denies Vaginal bleeding Denies Change in bowel habits Denies Change in bladder habits Denies Nausea and vomiting All other systems negative, unless specifically noted in HPI. Past Gynecologic History: OB History No obstetric history on file. No LMP recorded. Hormonal Contraceptives No HRT use No History of abnormal pap No No past surgical history on file. No past medical history on file. No family history on file. Social History Tobacco Use Smoking status: Not on file Smokeless tobacco: Not on file Substance Use Topics Alcohol use: Not on file Review of Symptoms: Pertinent items are noted in HPI. Objective: BP 138/80 Pulse 88 Temp 36.4 C (97.6 F) (Temporal) Ht 175.3 cm (5' 9 ) Wt 72 kg (158 lb 12.8 oz) SpO2 97% BMI 23.45 kg/m ECO- Asymptomatic General appearance: alert, appears stated age and cooperative Head: Normocephalic, without obvious abnormality, atraumatic Ears: normal TM's and external ear canals both ears Neck: no adenopathy, no carotid bruit, no JVD, supple, symmetrical, trachea midline and thyroid not enlarged, symmetric, no tenderness/mass/nodules Lungs: clear to auscultation bilaterally Breasts: normal appearance, no masses or tenderness Heart: regular rate and rhythm, S1, S2 normal, no murmur, click, rub or gallop Abdomen: abnormal findings: Soft, nontender, nondistended, no rebound or guarding. Well-healing incisions x3. Pelvic: cervix normal in appearance, external genitalia normal, uterus normal size, shape, and consistency, vagina normal without discharge Extremities: extremities normal, atraumatic, no cyanosis or edema Pulses: 2+ and symmetric Skin: Skin color, texture, turgor normal. No rashes or lesions Lymph nodes: Cervical, supraclavicular, and axillary nodes normal. Neurologic: Grossly normal Labs: No results found for: WBC , RBC , HGB , HCT , MCH , MCHC , PLT , MPV , RDW No results found for: BUN , NA , K , CL , BICARBONATE , GLUCOSE , ALBUMIN , PROT , CA , ALKP , AST , LABBILI No results found for: GGT No results found for: LDH No results found for: MG No results found for: PHOS No results found for: URIC Assessment: Patient is diagnosed with Patient Active Problem List Diagnosis Left ovarian cyst Plan: 1. The patient has a documented plan of care to address pain. 2. Left-sided ovarian cyst status post diagnostic laparoscopy with drainage-would plan for repeat imaging in the next 2 weeks. 3. Plan for video visit post repeat ultrasound. 4. Total time spent was 62 minutes: Preparing to see the patient (e.g., review of tests) Obtaining and/or reviewing separately obtained history Performing a medically appropriate examination and/or evaluation Counseling and educating the patient/family/caregiver Ordering medications, tests, or procedures Referring and communicating with other health care director rn (not separately reported) Documenting clinical information in the electronic or other health record Jason Gaming MD documented in this encounter [facility] 11-12-2023 Note [facility] Brief Evaluation Form Patient Name: [facility] Location: [place] [address] [facility] [id number] Date Of : Date Of Visit: 1980 11/12/2023 MRN# Provider: [id number] Betzy Lane PA-C SUBJECTIVE Prema Jorge presented [facility] with Abdominal Pain (NSAP x yesterday-- - pain 6/10 today pain yesterday /10- denies any injury/ n/v/d) HPI: Patient is [...] Patient is being recommended to go to [place] ED for further evaluation and treatment per [...] AUTHENTICATED BY BETZY LANE, ON 11/12/2023 13:03:34 [facility] 06-10-2023 History of Presen t illness Narrative [...] nursing note reviewed. Exam conducted with a staple side laster present. Vitals: Estimated body mass index is 25.55 kg/m as calculated from the following: Height as of 23: 5' 9 . Weight as of this [...] in this encounter [facility] Evaluation note Diagnosis Abnormal uterine bleeding (AUB) PCOS (polycystic ovarian syndrome) Polycystic ovaries documented in this encounter [facility] noteNo assessment information [facility] Phone: Evaluation note* Diagnosis Left ovarian cyst- Primary Other and unspecified ovarian cyst [facility] Diagnosis Left ovarian cyst- Primary Other and unspecified ovarian cyst [facility] Diagnosis Left ovarian cyst- Primary Other and unspecified ovarian cyst [facility] Diagnosis Left ovarian cyst- Primary Other and unspecified ovarian cyst Preop testing Unspecified pre-operative examination documented [facility] Diagnosis Cyst of left ovary- Primary Other and unspecified ovarian cyst Left ovarian cyst Other and unspecified ovarian cyst Preop testing Unspecified pre-operative examination [facility] Diagnosis Postoperative visit- Primary [facility] filedocumented in this [facility] filedocumented in this [facility] filedocumented in this [facility] filedocumented in this [facility] Summary Purpose Family History No Family History Records FoundNo Family History Records FoundNo Family History Records FoundNo Family History Records FoundNo Family History Records FoundNo Family History Records FoundNo Family History Records Found Advance Directives Advance Directive Response Recorded Date/ Time Advance Directives No November 25 1:00pm Reason for Referral Specialty Diagnoses / Procedures Referred By Jaelyn ji Referred To Contact Radiology Diagnoses Left ovarian cyst Procedures CT abdomen and pelvis with contrast Jason Gaming MD [address] [place] [address], [address] [id number] Referral ID Status Reason Start Date Expiration Date V isits Requested Visits Authorized [id number] Pending Review 12/25/2023 12/24/2024 1 1 Additional Source Comments INFORMATION SOURCE (unrecogn ized section and content) DATE CREATED AUTHOR 07/03/2022 [facility] DATE CREATED AUTHOR AUTHOR'S ORGANIZ ATION [facility] DATE CREATED AUTHOR AUTHOR'S ORGANIZ ATION 11/29/2023 [facility] DATE CREATED AUTHOR AUTHOR'S ORGANIZ ATION 12/06/2023 [facility] EPIC DATE CREATED AUTHOR AUTHOR'S ORGANIZ ATION 01/17/2024 [facility] DATE CREATED AUTHOR AUTHOR'S ORGANIZ ATION 01/24/2024 [facility] DATE CREATED AUTHOR AUTHOR'S ORGANIZ ATION 04/16/2024 [facility] Reason for Visit (unrecogniz ed section and content) Reason Comments Irregular cycles Reason Comments Post-op 1st DAVINCI DV5 CYST ECTOMY OVARIAN (04/03/24) Care Teams (unrecognized sec tion and content) Team Status: Inactive Member Role Status Dates Karla Harris Attending Provider Active Start: 2023 End: July 04, 2023 Team Status: Inactive Member Role Status Dates Karla Harris DO Attending Provider Active Start : November 26, 2023 End: November 26, 2023 Goals (unrecognized section and content) Goals may be documented in a n alternate sectionGoals may be documented in an alternate sectionNot on filedocumented as of this encounterNot on filedocumented as of this encounterNot on filedocumented as of this encounterNot on filedocumented as of this encounterNot on filedocumented as of this encounterNot on filedocumented as of this encounterNot on filedocumented as of this encounterNot on filedocumented as of this encounterNot on filedocumented as of this encounter FOR RECORDS PERTAINING TO PATIENTS WHO ARE [...] BE BASED ON THE PRIMARY CLINICAL RECORDS. [employer] [facility]. provides no warranty or guarantee of the accuracy or completeness of information in this document.
== END 2024-08-12 18:13 | disposition home or self-care (01) ==
LOC: LAB 18:12
PROVIDERS: Visit Provider Obstetrics & Gynecology
DX: Z01.419 Encounter for gynecological examination (general) (routine) without abnormal findings (principal)
CPT/HCPCS: 87624; 88175

== ENCOUNTER 2024-08-17 15:35 | Outpatient (OUT) | payer OTHER, SELFPAY ==
--- OUTSIDE RECORDS SUMMARY | 2024-08-17 15:53 | XMS_ITS | CCD ---
Author Organization [facility] Care Team Providers Care Heating And Ventilating Tender Name Role Phone RAY ., DR TREVINO Admitting Unavailteresa e RAY ., DR TREVINO Attending Unavailabl e REQUEST, DR TRAORE LISTED Primary Care Unavaila ble RAY ., DR TREVINO Consulting Unavailabl e Unavailable Primary Care Provider UnavailKarla Rogers Attending Provider BETZY LANE Attending Unavailable NO, PHYSICIAN Primary Care Unavailable DO Karla Harris Attending Provider Karla Harris Admitting Unavailable Karla Harris Attending Unavailable Karla Harris Attending Unavailable Karla Harris Admitting Unavailable JASON GAMING Attending Unavailable JASON GAMING Referring Unavailable JASON GAMING Attending Unavailable JASON GAMING Referring Unavailable JASON GAMING Attending Unavailable JASON GAMING Attending Unavailable JASON GAMING Attending Unavailable JASON GAMING Referring Unavailable JASON GAMING Admitting Unavailable JASON GAMING Attending Unavailable JASON GAMING Referring Unavailable EMILY HASSAN Attending Unavailable Unavailable Primary Care Provider UnavailKARLA Rogers Attending Unavailable KARLA HARRIS Attending Unavailable KARLA HARRIS Attending Unavailable MARY MONDRAGON Attending Unavailable Medications Current Medications Medication Drug [...] WOMENS ORAL) Take by mouth. Active sennosides, long-term 8.6 mg oral tablet (1 source) Start: [...] Facility Surgical Pathologyon 024 Surgical Pathology Normal [facility] Comment on above: Result Comment: [facility] [address] [place] [address] Surgical Pathology Consultation Patient Name:PREMA JORGE:1980 (Age: 43)Gender:FTaken:04/03/2024eported:04/14/2024hysician(s):Jason Gaming M.D. ([phone])Copy To: Rec. #:[id number]: #[id number] Final Pathologic Diagnosis Left ovarian cyst - cystectomy: - Serous cystadenoma (negative for malignancy) Report Electronically Signed Out amnn/04/14/2024Jose A Sommer MD Interpretation performed at [facility] [place] [address], License number: [id number]. Clinical History Ovarian cyst left. Gross Description Received in formalin labeled, LILLIE, left ovarian cyst are 4 sheets of membranous tissue that ranges from 4 x 2 x 0.1 cm to 13 x 4 x 0.1 cm. 1 surface is cash to reddish-brown and shaggy. The opposite surfaces are pale schwarz and smooth. Multiple data entry representative sections are submitted in cassettes A-C. (3, ss, [id number], m) [facility]/04/03/2024GR Specimen(s) Received Left ovarian cyst Fee Codes(s): 1; 88851 CBC AND AUTO DIFFon 03-24-20 ABSOLUTE BASOPHIL 0.0 X10E9/L Normal 0.0-0.2 [facility] Comment on above: Performed By: #### C BCA, CMP #### [facility] ([id number]) [address] [place] [address], [address] [place] [address] ABSOLUTE NEUTROPHIL 5.1 X10E9/L Normal 1.5-6.6 [facility] Comment on above: Performed By: #### C VIELKA, CMP #### [facility] ([id number]) [address], [address] [place] [address] Basophils/100 WBC (Bld) 0.5 % Normal [facility] Comment on above: Performed By: #### C BCA, CMP #### [facility] ([id number]) [address] [facility] [address] [place] [address] Eosinophils (Bld) [#/Vol] 0.2 10*3/uL Normal 0.0-0.4 [facility] Comment on above: Performed By: #### C VIELKA, CMP #### [facility] ([id number]) [address], [address] [place] [address] Eosinophils/100 WBC (Bld) 2.6 % Normal [facility] Comment on above: Performed By: #### C VIELKA, CMP #### [facility] ([id number]) [address], [address] [place] [address] Erythrocyte distribution width (RBC) [Ratio] 13.6 % Normal 11.5-15.0 [facility] Comment on above: Performed By: #### C BCA, CMP #### [facility] ([id number]) [address], [address] [place] [address] Hematocrit (Bld) [Volume fraction] 42.0 % Normal 35-47 [facility] Comment on above: Performed By: #### C BCA, CMP #### [facility] ([id number]) [address], [address] [place] [address] Hemoglobin (Bld) [Mass/Vol] 14.1 g/dL Normal 11.7-15.5 [facility] Comment on above: Performed By: #### C BCA, CMP #### [facility] ([id number]) [address], [address] [place] [address] Lymphocytes (Bld) [#/Vol] 2.1 10*3/uL Normal 1.0-3.5 [facility] Comment on above: Performed By: #### C BCA, CMP #### [facility] ([id number]) [address], [address] [place] [address] Lymphocytes/100 WBC (Bld) 26.3 % Normal [facility] Comment on above: Performed By: #### C BCA, CMP #### [facility] ([id number]) [address], [address] [place] [address] MCH (RBC) [Entitic mass] 29.2 pg Normal 27-34 [facility] Comment on above: Performed By: #### C BCA, CMP #### [facility] ([id number]) [address], [address] [place] [address] MCHC (RBC) [Mass/Vol] 33.6 g/dL Normal 32-36 [facility] Comment on above: Performed By: #### C BCA, CMP #### [facility] ([id number]) [address], [address] [place] [address] MCV (RBC) [Entitic vol] 87 fL Normal 80-100 [facility] Comment on above: Performed By: #### C BCA, CMP #### [facility] ([id number]) [address], [address] [place] [address] Monocytes (Bld) [#/Vol] 0.6 10*3/uL Normal 0-0.9 [facility] Comment on above: Performed By: #### C BCA, CMP #### [facility] ([id number]) [address], [address] [place] [address] Monocytes/100 WBC (Bld) 7.1 % Normal [facility] Comment on above: Performed By: #### C VIELKA, CMP #### [facility] ([id number]) [address] [facility] [address] [place] [address] Neutrophils/100 WBC (Bld) 63.5 % Normal [facility] Comment on above: Performed By: #### C VIELKA, CMP #### [facility] ([id number]) [address] [facility] [address] [place] [address] Platelet mean volume (Bld) [Entitic vol] 8.8 fL Normal 7-12 [facility] Comment on above: Performed By: #### C VIELKA, CMP #### [facility] ([id number]) [address] [address] Platelets (Bld) [#/Vol] 300 10*3/uL Normal 150-450 [facility] Comment on above: Performed By: #### Fermin VORA, CMP #### [facility] ([id number]) [address] [facility] [address] [place] [address] RBC COUNT 4.84 X10E12/L Normal 3.80-5.20 [facility] Comment on above: Performed By: #### C VIELKA, CMP #### [facility] ([id number]) [address] [address] WBC (Bld) [#/Vol] 8.0 10*3/uL Normal 4.0-11.0 [facility] Comment on above: Performed By: #### C VIELKA, CMP #### [facility] ([id number]) [address] [facility] [address] [place] [address] CBC with auto diffon 11-12-2 024 Basophils (Bld) [#/Vol] 0 10*3/uL [facility] Basophils/100 WBC (Bld) 0.5 % [facility] Eosinophils (Bld) [#/Vol] 0.2 10*3/uL [facility] Eosinophils/100 WBC (Bld) 2.6 % [facility] Erythrocyte distribution width (RBC) [Ratio] 13.6 % 11.5 - 15.0 % [facility] Hematocrit (Bld) [Volume fraction] 42 % 35 - 47 % [facility] Hemoglobin (Bld) [Mass/Vol] 14.1 g/dL 11.7 - 15.5 g/dL [facility] Lymphocytes (Bld) [#/Vol] 2.1 10*3/uL [facility] Lymphocytes/100 WBC (Bld) 26.3 % [facility] MCH (RBC) [Entitic mass] 29.2 pg 27 - 34 pg [facility] MCHC (RBC) [Mass/Vol] 33.6 g/dL 32 - 36 g/dL [facility] MCV (RBC) [Entitic vol] 87 fL 80 - 100 fL [facility] Monocytes (Bld) [#/Vol] 0.6 10*3/uL [facility] Monocytes/100 WBC (Bld) 7.1 % [facility] Neutrophils (Bld) [#/Vol] 5.1 10*3/uL [facility] Neutrophils/100 WBC (Bld) 63.5 % [facility] Platelet mean volume (Bld) [Entitic vol] 8.8 fL 7 - 12 fL [facility] Platelets (Bld) [#/Vol] 300 10*3/uL [facility] RBC (Bld) [#/Vol] 4.84 10*6/uL [facility] WBC corrected for nucl RBC Auto (Bld) [#/Vol] 8 [facility] COMPREHENSIVE METABOLIC PANE Dario 03-24-2024 Albumin [Mass/Vol] 4.4 g/dL Normal 3.2-5.3 [facility] Comment on above: Performed By: #### C BCA, CMP #### [facility] ([id number]) [address], [address] [place] [address] ALP [Catalytic activity/Vol] 74 U/L Normal 39-130 [facility] Comment on above: Performed By: #### C BCA, CMP #### [facility] ([id number]) [address] [place] [address] ALT [Catalytic activity/Vol] 13 U/L Normal 0-31 [facility] Comment on above: Performed By: #### C BCA, CMP #### [facility] ([id number]) [address], [address] [place] [address] Anion gap [Moles/Vol] 10 mmol/L Normal 5-15 [facility] Comment on above: Performed By: #### C BCA, CMP #### [facility] ([id number]) [address] [place] [address] AST [Catalytic activity/Vol] 13 U/L Normal 0-41 [facility] Comment on above: Performed By: #### C BCA, CMP #### [facility] ([id number]) [address] [place] [address] Bilirubin [Mass/Vol] 0.5 mg/dL Normal 0.3-1.2 [facility] Comment on above: Performed By: #### C BCA, CMP #### [facility] ([id number]) [address], [address] [place] [address] Calcium [Mass/Vol] 9.7 mg/dL Normal 8.5-10.5 [facility] Comment on above: Performed By: #### C BCA, CMP #### [facility] ([id number]) [address], [address] [place] [address] Chloride [Moles/Vol] 101 mmol/L Normal 98-109 [facility] Comment on above: Performed By: #### C BCA, CMP #### [facility] ([id number]) [address] [place] [address] CO2 [Moles/Vol] 29 mmol/L Normal 22-32 [facility] Comment on above: Performed By: #### C BCA, CMP #### [facility] ([id number]) [address] [address] [place] [address] Creatinine [Mass/Vol] 0.71 mg/dL Normal 0.40-1.00 [facility] Comment on above: Result Comment: METH OD TRACEABLE TO IDMS STANDARD Performed By: #### C BCA, CMP #### [facility] ([id number]) [address] [facility] [address] [place] [address] eGFR (CKD-EPI) NON-RACE DEPENDENT >90 Normal >59 [facility] Comment on above: Result Comment: Reported eGFR is based on the CKD-EPI 2020 equation that does not use a race coefficient. Performed By: #### C BCA, CMP #### [facility] ([id number]) [address] [address] Glucose [Mass/Vol] 93 mg/dL Normal 65-99 [facility] Comment on above: Performed By: #### C BCA, CMP #### [facility] ([id number]) [address] [address] [place] [address] Potassium [Moles/Vol] 3.7 mmol/L Normal 3.5-5.0 [facility] Comment on above: Performed By: #### C BCA, CMP #### [facility] ([id number]) [address] [address] [place] [address] Protein [Mass/Vol] 7.1 g/dL Normal 6.0-8.0 [facility] Comment on above: Performed By: #### C BCA, CMP #### [facility] ([id number]) [address] [address] Sodium [Moles/Vol] 140 mmol/L Normal 134-146 [facility] Comment on above: Performed By: #### C BCA, CMP #### [facility] ([id number]) [address] [place] [address] Urea nitrogen [Mass/Vol] 18 mg/dL Normal 5-23 [facility] Comment on above: Performed By: #### C BCA, CMP #### [facility] ([id number]) [address] [facility], [address] [place] [address] Comprehensive metabolic pane dario 03-24-2024 Albumin [Mass/Vol] 4.4 g/dL 3.2 - 5.3 g/dL Pr [facility] ALP [Catalytic activity/Vol] 74 U/L 39 - 130 U/L [facility] ALT No additional P-5'-P [Catalytic activity/Vol] 13 U/L 0 - 31 U/L [facility] Anion gap [Moles/Vol] 10 mmol/L 5 - 15 mmol/L [facility] AST [Catalytic activity/Vol] 13 U/L 0 - 41 U/L [facility] Bilirubin [Mass/Vol] 0.5 mg/dL 0.3 - 1 .2 mg/dL [facility] Calcium [Mass/Vol] 9.7 mg/dL 8.5 - 10. 5 mg/dL [facility] Chloride [Moles/Vol] 101 mmol/L 98 - 10 9 mmol/L [facility] CO2 [Moles/Vol] 29 mmol/L 22 - 32 mmol/L [facility] Creatinine [Mass/Vol] 0.71 mg/dL 0.40 - 1.00 mg/dL [facility] Comment on above: METHOD TRACEABLE TO IDMS STANDARD eGFR (CKD-EPI)non-race dependent - PINF [facility] Comment on above: Reported eGFR is based on the CKD-EPI 2020 equation that does not use a race coefficient. Glucose [Mass/Vol] 93 mg/dL 65 - 99 mg/dL [facility] Potassium [Moles/Vol] 3.7 mmol/L 3.5 - 5.0 mmol/L [facility] Protein [Mass/Vol] 7.1 g/dL 6.0 - 8.0 g/dL [facility] Sodium [Moles/Vol] 140 mmol/L 134 - 146 mmol/L [facility] Urea nitrogen [Mass/Vol] 18 mg/dL 5 - 23 mg/dL [facility] ABDOMEN AND PELVIS W CONT on [...] Evelio García DO on 01/16/2024 9:42 AM IEmily MD have personally reviewed the image(s) and agree with and/or edited the report Finalized by Emily Stone MD on 01/16/2024 10:37 AM Normal [facility] US PELVIC WITH TRANSVAGINALo n 12-18-2023 US [...] Sutton MD on 12/18/2023 1:48 PM Normal [facility] Dario 11-26-2023 L Specimen: [id number] Received: 11/26/23 Status: NICHELLE Bautista Num: [id number] Spec Type: Cytology Subm Dr: Karla Harris Tissues: A CYST FLUID (RT CYST FLUID) Procedures: HE/2, Gross/Micro L4, Cyto Prepstain, PAPSTN Age/ Patient Sex Location Account Attending Physician Prema Jorge 43/F LABELL [id number] Karla Harris SPEC NUM: [id number] RECD: 11/26/23 STATUS: NICHELLE BAUTISTA NUM: [id number] LYNDSAY: 11/26/23- SUBM DR: Karla Harris ENTERED: 11/26/[address] [facility] [address]: Cheryl,Lab SPEC TYPE: Cytology DEPT: [facility] ENTERED BY: [id number] RECV BY: [id number] ORDERED: HE/2, Gross/Micro L4, Cyto Prepstain, PAPSTN [...] performed supporting the above interpretation CPT Codes 66623 45005 -------- -------- Specimen: [id number] Received: 11/26/23 Status: NICHELLE Bautista Num: [id number] Spec Type: Cytology Subm Dr: Karla Harris Tissues: A CYST FLUID (RT CYST FLUID) Procedures: HE/2, Gross/Micro L4, Cyto Prepstain, PAPSTN -------- Patient: Prema Jorge [id number] (Continued) -------- Signed (signature on file) Brian Graves MD 11/27/23 1501 Normal [facility] Dario 07-03-2023 L Specimen: [id number] Received: 07/04/23 Status: NICHELLE Bautista Num: [id number] Spec Type: Surgical Subm Dr: Karla Harris Tissues: A Endometrium - Curettings (ENDOMETRIAL LINING) Procedures: HE/2, Gross/Micro L4 Age/ Patient Sex Location Account Attending Physician Prema Jorge 42/F [facility] [id number] Karla Harris SPEC NUM: [id number] RECD: 07/04/23 STATUS: NICHELLE BAUTISTA NUM: [id number] LYNDSAY: 07/03/23- SUBM DR: Karla Harris ENTERED: 07/04/[address] [facility] [address]: Cheryl,Lab SPEC TYPE: Surgical DEPT: AMAN GONZALEZ ORDERED: HE/2, Gross/Micro L4 ORDERED: HELinda, Gross/Micro L4 Pathological Diagnosis Endometrium, Biopsy: Benign Endometrium with Features Suggestive Of Endometrial Polyp. Clinical Information Abnormal uterine bleeding Gross Description Received in formalin labeled with the patient's name, date of and EM BX is a 1.9 x 1.2 x 0.2 cm aggregate of pale-cash tissue fragments. Entirely submitted in one cassette labeled A1. CPT Codes 58856 -------- -------- Specimen: [id number] Received: 07/04/23 Status: NICHELLE Bautista Num: [id number] Spec Type: Surgical Subm Dr: Karla Harris Tissues: A Endometrium - Curettings (ENDOMETRIAL LINING) Procedures: , Gross/Micro L4 -------- Patient: Prema Jorge [id number] (Continued) -------- Signed (signature on file) Marlin Garcia MD 07/09/23 2231 Normal [facility] PAP ACOG PANEL 2: 30 to 65on 07-02-2022 . . Normal [facility] Comment on above: Result Comment: Perf ormed at: [facility] Performed By: #### [id number] #### [facility] [address] [address] [address] Rhoda Graves Age Gdln ACOG Testing -63 [facility] Comment on above: Performed By: #### 4 [id number] #### [facility] [address] [address] [address] Rhoda Graves DIAGNOSIS: Comment Normal [facility] Comment on above: Result Comment: NEGA TIVE FOR INTRAEPITHELIAL LESION OR MALIGNANCY. Performed at: [facility] Performed By: #### 4 [id number] #### [facility] [address] [address] [address] Rhoda Graves HPV Aptima Negative Normal Negative [facility] Comment on above: Result Comment: This nucleic acid amplification test detects fourteen high-risk HPV types (16,18,31,33,35,39,45,51,52,56,58,59,66,68) without differentiation. Performed at: =G Performed By: #### 4 [id number] #### [facility] [address] [address] [address] Rhoda Graves HPV Genotype Reflex Comment Normal [facility] Comment on above: Result Comment: Crit eria not met, HPV Genotype not performed. Performed at: [facility] Performed By: #### 4 [id number] #### [facility] [address] [address] [address] Rhoda Graves Methodology: Comment Normal [facility] Comment on above: Result Comment: This liquid based ThinPrep(R) pap test was screened with the use of an image guided system. Performed at: [facility] Performed By: #### [id number] #### [facility] [address] [place] [address] Dr. Rhoda Graves Note: Comment Normal [facility] Comment on above: Result Comment: The Pap smear is a screening test designed to aid in the detection of premalignant and malignant conditions of the uterine cervix. It is not a diagnostic procedure and should not be used as the sole means of detecting cervical cancer. Both false-positive and false-negative reports do occur. . Performed at: [facility] Performed By: #### 4 [id number] #### [facility] [address] [place] [address] Dr. Rhoda Graves Performed by: Comment Normal [facility] Comment on above: Result Comment: Hernan Herrera, Commercial Credit Reviewer (ASCP) Performed at: [facility] Performed By: #### 4 [id number] #### [facility] [address] [place] [address] Dr. Rhoda Graves Specimen adequacy: Comment Normal [facility] Comment on above: Result Comment: Sati sfactory for evaluation. Endocervical and/or squamous metaplastic cells (endocervical component) are present. Performed at: [facility] Performed By: #### 4 [id number] #### [facility] [address] [place] [address] Dr. Rhoda Graves Cytology Cervical or vaginal smear or scraping studyon 06-26-2022 [facility] Vital Signs Date Time Vital Sign Value Performing Clinician Facility 04-17-2024 13:03-0500 Body temperature 97.9 [degF] June Walkup PA Work Phone: [facility] 04-17-2024 13:03-0500 Diastolic blood pressure 82 mm[Hg] June Walkup PA Work Phone: [facility] 04-17-2024 13:03-0500 Heart rate 113 /min June Walkup PA Work Phone: [facility] 04-17-2024 13:03-0500 Respiratory rate 16 /min June Walkup PA Work Phone: [facility] 04-17-2024 13:03-0500 SaO2% (BldA) [Mass fraction] 96 % June Walkup PA Work Phone: [facility] [employer] 04-17-2024 13:03-0500 Systolic blood pressure 128 mm[Hg] June Walkup PA Work Phone: [facility] [employer] 04-17-2024 13:02-0500 Body mass index (BMI) [Ratio] 22.72 kg/m2 June Walkup PA Work Phone: [facility] [employer] [facility] 04-17-2024 13:02-0500 Body weight 69.81 kg June Walkup PA Work Phone: [facility] [employer] [facility] 04-17-2024 12:56-0500 Body height 175.3 cm June [employer] PA Work Phone: [facility] 03-24-2024 13:40-0500 Body height 175.3 cm [facility] [address] [place] [address] 03-24-2024 13:40-0500 Body mass index (BMI) [Ratio] 23.28 kg/m2 [facility] [address] [place] [address] [employer] [facility] 03-24-2024 13:40-0500 Body temperature 97.59 [degF] [facility] [address] [place] [address] [employer] [facility] 03-24-2024 13:40-0500 Body weight 71.5 kg [facility] [address] [place] [address] [employer] [facility] 03-24-2024 13:40-0500 Diastolic blood pressure 70 mm[Hg] [facility] [address] [place] [address] [employer] [facility] 03-24-2024 13:40-0500 Heart rate 86 /min [facility] [address] [place] [address] [employer] [facility] 03-24-2024 13:40-0500 Respiratory rate 24 /min [facility] [address] [place] [address] [employer] [facility] [employer] [facility] 03-24-2024 13:40-0500 SaO2% (BldA) [Mass fraction] 99 % [address] [employer] [facility] 03-24-2024 13:40-0500 Systolic blood pressure 140 mm[Hg] [facility] [address] [place] [address] [employer] [facility] 12-04-2023 08:56-0400 Body height 175.3 cm Jason Gaming MD Work Phone: [facility] 12-04-2023 08:56-0400 Body mass index (BMI) [Ratio] 23.45 kg/m2 Jason Gaming MD Work Phone: [facility] 12-04-2023 08:56-0400 Body temperature 97.59 [degF] Jason Gaming MD Work Phone: [facility] 12-04-2023 08:56-0400 Body weight 72.03 kg Jason Gaming MD Work Phone: [facility] 12-04-2023 08:56-0400 Diastolic blood pressure 80 mm[Hg] Jason Gaming MD Work Phone: [facility] 12-04-2023 08:56-0400 Heart rate 88 /min Jason Gaming MD Work Phone: [facility] 12-04-2023 08:56-0400 SaO2% (BldA) [Mass fraction] 97 % Jason Gaming MD Work Phone: [facility] 12-04-2023 08:56-0400 Systolic blood pressure 138 mm[Hg] Jason Gaming MD Work Phone: [facility] 06-10-2023 16:31-0500 Body mass index (BMI) [Ratio] 25.55 kg/m2 Karla Steven DO Work Phone: [facility] 06-10-2023 16:31-0500 Body weight 78.47 kg Karla Steven DO Work Phone: [facility] 06-10-2023 16:31-0500 Diastolic blood pressure 80 mm[Hg] Karla Steven DO Work Phone: [facility] 06-10-2023 16:31-0500 Systolic blood pressure 138 mm[Hg] Karla Steven DO Work Phone: [facility] Healthcare Encounters Encounter Date Encounter Type Care Provider Facility Start: 08-12-2024 End: 08-12-2024 ambulatory KARLA STEVEN Not Available Start: 08-12-2024 End: 08-12-2024 Bamboo flowsheet Karla Steven DO Work Phone: [facility] Start: 08-12-2024 End: 08-12-2024 Bamboo flowsheet Karla Steven DO Work Phone: [facility] Start: 04-17-2024 End: 04-17-2024 Postop follow up visit related to original px June L Joel MARIE Work Phone: [facility] Comment on above: Postoperative visit (Primary Dx) Start: 04-03-2024 End: 04-03-2024 Evaluation and management of inpatient EMILY GUERREROJENNY [facility] Start: 04-03-2024 End: 04-03-2024 Evaluation and management of inpatient JASON Christensen AMBERLY [facility] Start: 04-02-2024 End: 04-02-2024 Documentation procedure Margoth Berry RN [facility] Start: 03-26-2024 End: 03-26-2024 Telephone encounter Kvng Ballesteros RN [facility] Start: 03-24-2024 End: 03-24-2024 Patient encounter procedure [facility] Provider Germaine Delacruz Pre-Admission Clinic On [facility] Comment on above: Cyst of left ovary ( Primary Dx); Left ovarian cyst; Preop testing Start: 03-24-2024 End: 03-24-2024 Patient encounter status [facility] Start: 03-24-2024 End: 03-24-2024 ambulatory JASON Christensen AMBERLY [facility] Start: 03-24-2024 Encounter for other preprocedural examination [facility] Start: 01-23-2024 End: 01-23-2024 Orders Only Jason Gaming MD Work Phone: [facility] Comment on above: Left ovarian cyst (P rimary Dx); Preop testing Start: 01-23-2024 End: 01-23-2024 Patient encounter status Jason Gaming MD Work Phone: [facility] Start: 01-22-2024 End: 01-22-2024 Office outpatient visit 25 minutes Jason Gaming MD Work Phone: [facility] Comment on above: Left ovarian cyst (P rimary Dx) Start: 01-22-2024 End: 01-22-2024 ambulatory [facility] Start: 01-16-2024 End: 01-16-2024 ambulatory [facility] Start: 12-25-2023 End: 12-25-2023 Office outpatient visit 25 minutes Jason Gaming MD Work Phone: [facility] Comment on above: Left ovarian cyst (P rimary Dx) Start: 12-25-2023 End: 12-25-2023 ambulatory [facility] Start: 12-17-2023 End: 12-17-2023 ambulatory [facility] Start: 12-04-2023 End: 12-04-2023 Office outpatient new 60 minutes Jason Gaming MD Work Phone: [facility] Comment on above: Left ovarian cyst (P rimary Dx) Start: 12-04-2023 End: 12-04-2023 ambulatory [facility] Start: 12-03-2023 End: 12-03-2023 ambulatory MARY MONDRAGON Not Available Start: 11-26-2023 End: 11-26-2023 ambulatory Karla Steven [facility] Work Phone: Start: 11-26-2023 End: 11-26-2023 Departed Referred DO Karla Steven Work Phone: [facility] Start: 11-18-2023 End: 11-18-2023 ambulatory KARLA STEVEN Not Available Start: 11-12-2023 End: 11-12-2023 ambulatory BETZY LEWIS [facility] Start: 09-09-2023 End: 09-09-2023 ambulatory KARLA STEVEN Not Available Start: 07-04-2023 End: 07-04-2023 ambulatory Karla Harris [facility] Work Phone: Start: 07-04-2023 End: 07-04-2023 Departed Referred Karla Harris Work Phone: [facility] Start: 06-10-2023 End: 06-10-2023 Office outpatient visit [...] Adult BMI Screening Adult BMI Screen ing [facility] Start: 04-03-2025 Tobacco Screening Tobacco Screening [facility] Start: 03-24-2025 Adult BMI Screening Adult BMI Screen ing [facility] Start: 03-24-2025 Tobacco Screening Tobacco Screening [facility] Start: 12-03-2024 Adult BMI Screening Adult BMI Screen ing [facility] Start: 08-12-2024 End: 08-12-2024 Patient encounter procedure 08/12/2024 4:00 PM EDT Office Visit [facility] [address] [place] [phone] Karla Harris, DO [address] [place] [address] Arrived [facility] Comment on above: Arrived Start: 04-17-2024 End: 04-17-2024 Patient encounter procedure 04/17/2024 1:00 PM EST Office Visit [facility] [address] [facility] [address] [place] [phone] June Maldonado PA [address], [address] [place] [phone] [facility] Start: 04-03-2024 End: 04-03-2024 Admission to same day surgery center [facility] Comment on above: DAVINCI CYSTECTOMY O VARIAN [64621 (CPT )] DAVINCI DV5 CYSTECTO MY OVARIAN [48861 (CPT )] Start: 04-03-2024 End: 04-03-2024 Laps fulg/exc ovary viscera/peritoneal surface [facility] Start: 04-03-2024 Subsequent hospital visit by physician [facility] Start: 03-24-2024 End: 03-24-2024 Patient encounter procedure 03/24/2024 1:30 PM EST Procedure visit [facility] Pre-Admission Clinic On [address] [address] [facility] Pre-Admission Clinic On [facility] Start: 01-22-2024 End: 01-22-2024 Telemedicine consultation with patient 01/22/2024 2:30 PM EDT Telemedicine [facility] [address] [facility] [address] [place] [address] [place] [address] [place] [address], [address] [place], [place] [id number] [facility] Start: 01-12-2024 Influenza vaccination Influenza Vacc ine [facility] Start: 12-25-2023 End: 12-24-2024 CT Abdomen and Pelvis W contrast IV CT abdomen and pelvis with contrast Imaging Routine Left ovarian cyst Expected: 12/25/2023, Expires: 12/24/2024 [facility] Work Phone: Comment on above: Expected: 12/25/2023 , Expires: 12/24/2024 Start: 12-25-2023 End: 12-25-2023 Telemedicine consultation with patient 12/25/2023 11:30 AM EDT Telemedicine [facility] [address] [place] [address] [address] [place] [phone] Jason Gaming MD [address] [place] [address], [address] [place] [address] [facility] Start: 12-04-2023 End: 12-03-2024 US Pelvis Ultrasound pelvic complete Imaging Routine Left ovarian cyst Expected: 12/04/2023, Expires: 12/03/2024 [facility] Work Phone: Comment on above: Expected: 12/04/2023 , Expires: 12/03/2024 Start: 08-07-2023 End: 08-07-2023 Patient encounter procedure 08/07/2023 4:00 PM EDT Office Visit [facility] [address] [facility] [place] [phone] Karla Harris, DO [address] [place] [address] [facility] Start: 07-03-2023 End: 07-03-2023 Patient encounter procedure 07/03/2023 3:30 PM EST Procedure Visit [facility] [address] [place] [phone] Karla Harris, DO [address] [place], [place] [phone] [facility] Start: 07-03-2023 End: 07-03-2023 Professional / ancillary services management 07/03/2023 2:30 PM EST Ancillary Procedure [facility] [address] [place] [phone] [facility] Start: 06-10-2023 End: 06-10-2024 DHEA DHEA Lab Routine PCOS (polycystic ovarian syndrome) Expected: 06/10/2023 (Approximate), Expires: 06/10/2024 [facility] Comment on above: Expected: 06/10/2023 (Approximate), Expires: 06/10/2024 Start: 06-10-2023 End: 06-10-2024 US for US PELVIS-TRANSVAG IF INDICATED Imaging Routine PCOS (polycystic ovarian syndrome) Expected: 06/10/2023 (Approximate), Expires: 06/10/2024 [facility] Comment on above: Expected: 06/10/2023 (Approximate), Expires: 06/10/2024 Start: 10-05-2018 Screening for malign ant neoplasm of cervix Pap Smear [facility] Start: 1997 DTaP,Tdap and Td Vaccines (1 - Tdap) DTaP,Tdap and Td Vaccines (1 - Tdap) [facility] Start: 1990 Depression Screening Depression Scre ening [facility] Start: 1990 Tobacco Screening Tobacco Screening [facility] CBC W Auto Different ial panel - Blood CBC and differential Lab Routine PCOS (polycystic ovarian syndrome) Ordered: 06/10/2023 [facility] Comment on above: Ordered: 06/10/2023 End: 01-22-2025 CBC W Auto Differential panel - Blood CBC with auto diff Lab Routine Left ovarian cyst Preop testing 1 Occurrences starting 01/23/2024 until 01/22/2025 [employer] Work Phone: Comment on above: 1 Occurrences starti ng 01/23/2024 until 01/22/2025 End: 01-22-2025 Comprehensive metabolic 2000 panel - Serum or Plasma Comprehensive metabolic panel Lab Routine Left ovarian cyst Preop testing 1 Occurrences starting 01/23/2024 until 01/22/2025 [facility] Comment on above: 1 Occurrences starti ng 01/23/2024 until 01/22/2025 DHEA-sulfate DHEA-sulfate Lab Routine PCOS (polycystic ovarian syndrome) Ordered: 06/10/2023 [facility] Comment on above: Ordered: 06/10/2023 Follicle stimulating hormone Follicle stimulating hormone Lab Routine PCOS (polycystic ovarian syndrome) Ordered: 06/10/2023 [facility] Comment on above: Ordered: 06/10/2023 hCG, quantitative, hCG, quantitative, Lab Routine PCOS (polycystic ovarian syndrome) Ordered: 06/10/2023 [facility] Work Phone: Comment on above: Ordered: 06/10/2023 Hemoglobin A1c measurement Hemoglobin A1c Lab Routine Abnormal uterine bleeding (AUB) PCOS (polycystic ovarian syndrome) Ordered: 06/10/2023 [facility] Comment on above: Ordered: 06/10/2023 Luteinizing hormone Luteinizing hormone Lab Routine PCOS (polycystic ovarian syndrome) Ordered: 06/10/2023 [facility] Comment on above: Ordered: 06/10/2023 End: 01-22-2025 , urine , urine Lab Routine Left ovarian cyst Preop testing 1 Occurrences starting 01/23/2024 until 01/22/2025 [facility] Comment on above: 1 Occurrences starti ng 01/23/2024 until 01/22/2025 Thyrotropin [Units/volume] in Serum or Plasma TSH Lab Routine PCOS (polycystic ovarian syndrome) Ordered: 06/10/2023 [facility] Comment on above: Ordered: 06/10/2023 Thyroxine (T4) free [Mass/volume] in Serum or Plasma T4, free Lab Routine PCOS (polycystic ovarian syndrome) Ordered: 06/10/2023 [facility] Comment on above: Ordered: 06/10/2023 Payers Date Payer Category Payer Self-pay 2023 Unknown [employer] [id number] 2023-Present [phone] [address] [address] [place] [address] [id number] 2022 Managed Care Other (unspecified) [employer] [id number] 2022 Private Health Insurance [id number] [id number] 1978 Unknown [id number] 2.16.840.1.728188.3.579. 2.593 1978 Unknown [id number] 2.16.840.1.992537.3.579. 2.903 1978 Unknown [id number] 2.16.840.1.768430.3.579. 2.1285 1978 Unknown [id number] 2.16.840.1.679982.3.579. 2.1285 1978 Unknown [id number] 2.16.840.1.228842.3.579. 2.1285 1978 Unknown [id number] 2.16.840.1.541284.3.579. 2.1285 1978 Unknown [id number] 2.16.840.1.525736.3.579. 2.1285 1978 Unknown [id number] 2.16.840.1.580580.3.579. 2.1285 1978 Unknown [id number] 2.16.840.1.860003.3.579. 2.1285 1978 Unknown [id number] 2.16.840.1.439087.3.579. 2.1285 1978 Unknown [id number] 2.16.840.1.148645.3.579. 2.1285 1978 Unknown [id number] 2.16.840.1.235329.3.579. 2.1259 1978 Unknown [id number] 2.16.840.1.384857.3.579. 2.1259 1978 Unknown [id number] 2.16.840.1.846962.3.579. 2.1259 1978 Unknown [id number] 2.16.840.1.913889.3.579. 2.1259 1959 Unknown [id number] Unknown [id number] 2.16.840.1.262657.3.579. 2.531 Social History Date Type Detail Facility Start: 05-20-2023 End: 03-24-2024 Tobacco smoking status NHIS Never smoked tobacco [facility] Start: 06-10-2023 End: 12-03-2023 Alcohol intake Current drinker of alcohol (finding) [facility] Start: 06-10-2023 End: 03-24-2024 History of Social function [facility] Start: 06-10-2023 End: 03-24-2024 Tobacco use panel [facility] Start: 05-20-2023 Alcohol Comment Occasional alcohol u se [facility] Start: 1980 Sex Assigned At Not on file N [facility] Start: 1980 Sex Assigned At Female [facility] Tobacco smoking stat [facility] Tobacco smoking consumption unknown [facility] Start: 03-24-2024 Tobacco use and exposure Smokeless tobacco non-user [facility] Start: 03-24-2024 End: 04-03-2024 Alcoholic beverage intake Not Asked [facility] Within the past 12 months we worried whether our food would run out before we got money to buy more. Never True [facility] Start: 03-24-2024 Alcohol Comment very rare [facility] Start: 11-27-2023 Sex Female (finding) [facility] Clinical Notes 06-10-2023 to 04-17-2024 [...] No Past Surgical History: Procedure Laterality Date TONI DV5 CYSTECTOMY OVARIAN Left 04/03/2024 Performed by Jason Gaming MD at [facility] CYST DRAINAGE Left 12/2023 attempted [...] be healing well - F/U with routine reel fed printer provider Total time spent was 25 minutes: Preparing to see the patient (e.g., review of tests) Performing a medically appropriate examination and/or evaluation Counseling and educating the patient/family/caregiver Referring and communicating with other health day care home mother (not separately reported) Documenting clinical information in the electronic or other health record CYNTHIA VICTORIA Dr. was physically present in the office, available for the entirety of the patient's visit, and participated in the coordination of treatment plan. CYNTHIA Victoria 04/17/24 1320 documented in this encounter [facility] 04-02-2024 History of Presen t illness Narrative [...] contact us with any questions or concerns. [facility]/ [facility] [address] [place] [address] Office: [phone] documented in this encounter [facility] 03-26-2024 Miscellaneous Notes Outpatient referral received to [facility] for education on blood alternatives. Left vm for patient to call our office. Kvng MONTOYA [facility] [phone] documented in this encounter [facility] 03-26-2024 Telephone encounter Note Outpatient referral received to [facility] for education on blood alternatives. Left vm for patient to call our office. Kvng MONTOYA [facility] [phone] [facility] 03-24-2024 Instructions Emily Morales RN - 03/24/2024 1:30 PM EST Your surgery/procedure is scheduled at [facility] on April 03 at 730 am Arrival Time 530 am [facility] Address: [address] [place] [address]. [place] [address] Park in [address] Parking lot located on [facility]. Report to the Entrance B. Check in at the information desk the surgery. The waiting room located on the second floor. If you have any questions prior to surgery, please call Pre-Admission Clinic at [phone] between 7:30 am and 4:30 pm Saturday through Saturday. If you have questions the morning of surgery, please call the Pre-op Department at [phone]. Notify your SURGEON if you develop any [...] piercings ,hair extensions that contain metal, nail wolof, make-up, and contact lens. You may brush [...] RIGHTS AND RESPONSIBILITIES As a patient at [facility], you have the right to: Receive medical care and be informed of who is taking care of you Be treated with dignity and respect Have a family member/data entry representative of choice and your physician notified of your admission Receive information and actively participate in decisions about your care and treatment Refuse care, treatment and services Decide who may provide your support and speak for you Access druze and spiritual services Participate in ethical issues [...] of hospital charges and payment methods Patient/patient data entry representative responsibilities are to: Provide information about [...] in clean clothes. documented in this encounter [facility] 01-22-2024 History of Presen t illness Narrative Video Visit via Real-time Synchronous Audiovisual Provider Location: [facility] [address] [place] [address] Patient Location: Patient's home Video Visit [...] that there are some limitations compared to voab-ml-hvwx evaluations. The patient consented to the presence [...] procedures Referring and communicating with other health day care home mother (not separately reported) Documenting clinical information in the electronic or other health record Jason Gaming MD documented in this encounter [facility] 12-25-2023 History of Presen t illness Narrative Video Visit via Real-time Synchronous Audiovisual Provider Location: [facility] [address] [place] [address] Patient Location: Patient's home Video Visit Consent [...] that there are some limitations compared to ccer-qe-ulsb evaluations. The patient consented to the presence [...] procedures Referring and communicating with other health day care home mother (not separately reported) Documenting clinical information in the electronic or other health record Jason Gaming MD documented in this encounter [facility] 12-04-2023 History of Presen t illness Narrative [...] procedures Referring and communicating with other health day care home mother (not separately reported) Documenting clinical information in the electronic or other health record Jason Gaming MD documented in this encounter [facility] 11-12-2023 Note [facility]gent [facility] re Brief Evaluation Form Patient Name: [facility] Location: Prema Jorge [address] [place] [address] Date Of : Date Of Visit: 1980 11/12/2023 MRN# Provider: [id number] Betzy Lane PA-C SUBJECTIVE Prema Jorge [facility] Ab[facility] Pain (NSAP x yesterday-- - [...] Patient is being recommended to go to [place] [facility] for further evaluation and treatment per [...] AUTHENTICATED BY BETZY LANE, ON 11/12/2023 13:03:34 [facility] 06-10-2023 History of Presen t [...] nursing note reviewed. Exam conducted with a athletic shoe designer present. Vitals: Estimated body mass index is [...] Polycystic ovaries [facility]: Evaluation note* Diagnosis Left ovarian cyst- Primary Other and unspecified ovarian cyst documented in this encounter [facility]* Diagnosis Left ovarian cyst- Primary Other and unspecified ovarian cyst documented in this encounter [facility]* Diagnosis Left ovarian cyst- Primary Other and unspecified ovarian cyst documented in this encounter [facility]* Diagnosis Left ovarian cyst- Primary Other and unspecified ovarian cyst Preop testing Unspecified pre-operative examination documented in this encounter [facility]* Diagnosis Cyst of left ovary- Primary Other and unspecified ovarian cyst Left ovarian cyst Other and unspecified ovarian cyst Preop testing Unspecified pre-operative examination documented in this encounter [facility]* Diagnosis Postoperative visit- Primary [facility] SystemInstructionsNot on filedocumented in this encounter [facility] System[facility]ructions[facility] on filedocumented in this encounter [facility] System[facility]ructionsNot on filedocumented in this encounter [facility] System[facility]ructionsNot on filedocumented in this encounter [facility] SystemInstructionsNot on filedocumented in this encounter [facility] Summary Purpose Family History No Family History Records FoundNo Family History Records FoundNo Family History Records FoundNo Family History Records FoundNo Family History Records FoundNo Family History Records FoundNo Family History Records Found Advance Directives No Advanced Directives Records Found Advance Directive Response Recorded Date/ Time Advance Directives No November 25 1:00pm Reason for Referral Specialty Diagnoses / Procedures Referred By Jaelyn ji Referred To Contact Radiology Diagnoses Left ovarian cyst Procedures CT abdomen and pelvis with contrast Jason Gaming MD [address] [place] [address], [place] [address] Referral ID Status Reason Start Date Expiration Date V isits Requested Visits Authorized [id number] Pending Review 12/25/2023 12/24/2024 1 1 Additional Source Comments INFORMATION SOURCE (unrecogn ized section and content) DATE CREATED AUTHOR 07/03/2022 [facility] DATE CREATED AUTHOR AUTHOR'S ORGANIZ ATION 11/13/2023 [facility] DATE CREATED AUTHOR AUTHOR'S ORGANIZ ATION 11/29/2023 [facility] DATE CREATED AUTHOR AUTHOR'S ORGANIZ ATION 01/17/2024 [facility] DATE CREATED AUTHOR AUTHOR'S ORGANIZ ATION 01/24/2024 [facility] DATE CREATED AUTHOR AUTHOR'S ORGANIZ ATION 04/16/2024 [facility] DATE CREATED AUTHOR AUTHOR'S ORGANIZ ATION 08/15/2024 [facility] EPIC Reason for Visit (unrecogniz ed section and content) Reason Comments Irregular cycles Reason Comments Post-op 1st DAVINCI DV5 CYST ECTOMY OVARIAN (04/03/24) Care Teams (unrecognized sec tion and content) Team Status: Inactive Member Role Status Dates Karla Harris Attending Provider Active Start: Lori anderson 2023 End: July 04, 2023 Team Status: [...] BE BASED ON THE PRIMARY CLINICAL RECORDS. [facility]. provides no warranty or guarantee of the accuracy or completeness of information in this document.
[2024-08-17 16:03] LABS: Basophils Percent Auto 0.3 % (0.2-2.0); Eosinophils Absolute Auto 0.3 10^3/uL (0.0-0.7); Eosinophils Percent Auto 3.5 % (0.9-7.0); Hematocrit 37.4 % (36.0-48.0); Hemoglobin 12.2 g/dL (12.0-16.0); Immature Granulocytes Abs Auto 0.04 10^3/uL (0.00-0.03); Immature Granulocytes Pct Auto 0.6 % (0.0-0.5); Lymphocytes Percent Auto 28.1 % (20.5-60.0); Mean Corpuscular HGB Conc 32.6 g/dL (29.9-35.2); Mean Corpuscular Volume 88.8 fL (81.0-99.0); Monocytes Absolute Auto 0.5 10^3/uL (0.3-0.8); Monocytes Percent Auto 7.1 % (1.7-12.0); Neutrophils Absolute Auto 4.3 10^3/uL (1.4-6.5); Neutrophils Percent Auto 60.4 % (43.0-75.0); Platelet Count 250 10^3/uL (150-450); Red Blood Count 4.21 10^6/uL (4.20-5.40); Red Cell Distribution Width 13.2 % (11.0-15.0); White Blood Count 7.2 10^3/uL (4.0-11.0)
[2024-08-17 16:11] LABS: INR 0.99; Partial Thromboplastin Time 25.8 sec (22.3-36.2); Prothrombin Time 10.5 sec (9.0-11.6)
[2024-08-17 16:19] LABS: Estimated Average Glucose 97 mg/dL
[2024-08-17 16:54] LABS: Free T4 0.91 ng/dL (0.76-1.46)
[2024-08-17 17:00] LABS: Thyroid Stimulating Hormone 3.904 uIU/mL (0.358-3.740)
[2024-08-17 17:03] LABS: HCG Quantitative <1 mIU/mL
== END 2024-08-17 15:36 | disposition home or self-care (01) ==
LOC: LAB 15:37
PROVIDERS: Visit Provider Obstetrics & Gynecology
DX: N92.0 Excessive and frequent menstruation with regular cycle (principal)
CPT/HCPCS: 36415; 83036; 84439; 84443; 84702; 85025; 85610; 85730

== ENCOUNTER 2024-09-16 15:21 | Outpatient (OUT) | payer OTHER, SELFPAY ==
[2024-09-16 16:00] LABS: Thyroid Stimulating Hormone 1.929 uIU/mL (0.358-3.740)
== END 2024-09-16 15:22 | disposition home or self-care (01) ==
LOC: LAB 15:22
PROVIDERS: Visit Provider Obstetrics & Gynecology
DX: R79.89 Other specified abnormal findings of blood chemistry (principal)
CPT/HCPCS: 36415; 84443

== ENCOUNTER 2024-12-21 08:24 | Emergency (ER) | payer OTHER, SELFPAY ==
[2024-12-21] VITALS (59 sets, daily range): BP systolic 105–141; BP diastolic 76–94; PULSE 107–127; TEMP 36.9; O2SAT 66–99; BMI 25.1
--- OUTSIDE RECORDS SUMMARY | 2024-12-21 08:29 | XMS_ITS | Encounter Summary ---
Author Organization [facility] Address [address] [place] [address] Care Team Providers Care Group Cio Name Role Phone Unavailable Primary Care Provider Unavailabl e Encounter Details Date Type Department Care Team (Late Contact Info) Description 11/21/2023 Abstract [facility] Cheryl MAN [address] [place] [address] [place] [address] Rufus Harris DO [address] [place] [address] Dr Naldo [place], [facility] Social History Tobacco Use Types Packs/Day Years Used Date Smoking Tobacco: Never Alcohol Use Standard Drinks/Week Comments Yes 0 (1 standard drink = 0.6 oz pur e alcohol) Occasional alcohol use Comments No Sex and Gender Information Value Date Recorded Sex Assigned at Not on file Legal Sex Female 9:34 PM EDT Gender Identity Not on file Sexual Orientation Not on file documented as of this encounter Plan of Treatment Upcoming Encounters Date Type Department Care Team (Late Contact Info) Description 08/23/2025 4:00 PM EDT Office Visit SHAKIRA MAN [address] [place] [address] [place] [address] Rufus Harris DO [address] [place] [address] [place], [facility] documented as of this encounter Visit Diagnoses Not on filedocumented in this encounter
--- OUTSIDE RECORDS SUMMARY | 2024-12-21 08:29 | XMS_ITS | Clinical Summary ---
Author Organization [facility] Address [address] [place] [address] Care Team Providers Care Catcher Filter Tip Name Role Phone Unavailable Primary Care Provider Unavailabl e Allergies No known active allergies Medications No known medications Encounters Date Type Department Care Team Description 09/21/2024 3:40 PM EDT Office Visit [facility] Cheryl MAN [address] [place], [phone] Rufus Harris DO Encounter to discuss test results 09/21/2024 Telephone [facility] Cheryl MAN [facility] [place] [address] Lachelle Vincent LPN 09/21/2024 Bamboo flowsheet [facility] Cheryl MAN [address] [place], [place] [address] [address] Rufus Harris DO from Last 3 Months Family History Medical History Relation Name Comments Hyperlipidemia Father Hypertension Father Relation Name Status Comments Father Alive Mother Alive Social History Tobacco Use Types Packs/Day Years Used Date Smoking Tobacco: Never Tobacco Cessation:Counseling Given: Not Answered Alcohol Use Standard Drinks/Week Comments Yes 0 (1 standard drink = 0.6 oz pur e alcohol) Occasional alcohol use Comments No Sex and Gender Information Value Date Recorded Sex Assigned at Not on file Legal Sex Female 9:34 PM EDT Gender Identity Not on file Sexual Orientation Not on file Last Filed Vital Signs Vital Sign Reading Time Taken Comments Blood Pressure 132/84 09/21/2024 4:12 PM EDT Pulse - - Temperature - - Respiratory Rate - - Oxygen Saturation - - Inhaled Oxygen Concentration - - Weight 74.6 kg (164 lb 6.4 oz) 09/21/2024 4:12 P M EDT Height 175.3 cm (5' 9 ) 06/26/2022 12:00 PM EST Body Mass Index 24.28 06/26/2022 12:00 PM EST Plan of Treatment Upcoming Encounters Date Type Department Care Team (Late st Contact Info) Description 08/23/2025 4:00 PM EDT Office Visit [facility] ISUGYMoe [address] [facility] [place] [address] Rufus Harris DO [address] [facility] [place] [address] Insurance [employer]
--- OUTSIDE RECORDS SUMMARY | 2024-12-21 08:29 | XMS_ITS | Encounter Summary ---
Author Organization [facility] Address [address] [facility] [address] Care Team Providers Care Dictaphone Operator Name Role Phone Unavailable Primary Care Provider Unavailabl e Encounter Details Date Type Department Care Team (Late Contact Info) Description 08/19/2024 Orders Only [facility] Cheryl MAN [address] [place] [address] [place] [address] Florence Scott LPN 102 [facility] N[place] [facility]11 Social History Tobacco Use Types Packs/Day Years [...] 08/23/2025 4:00 PM EDT Office Visit NOMLuann MAN [address] [place] [address] [place] [address] Rufus Harris DO [address] [facility] [address] [place] [phone] documented as of this encounter Procedures Procedure Name Priority Date/Time Associated Diagnosis Comments PAP SMEAR Routine 08/12/2024 12:00 AM EDT documented in this encounter Results * Pap Smear (08/12/2024 12:00 AM EDT) Swab Cervical swab / Unknown Steven Nurse [facility] LAB CYTOLOGY ORDERABLES Final Result EXTERNAL LAB documented in this encounter Visit Diagnoses Not on filedocumented in this encounter
--- OUTSIDE RECORDS SUMMARY | 2024-12-21 08:29 | XMS_ITS | Encounter Summary ---
Author Organization [facility] Address [address] [place] [address] Care Team Providers Care Script Worker Name Role Phone Unavailable Primary Care Provider Unavailabl e Encounter Details Date Type Department Care Team (Late st Contact Info) Description 11/20/2023 Clinisync Result Encounter N[facility]S External Department Unsolicited Karla Harris [address] [place], [place] [phone] Social History Tobacco Use Types Packs/Day Years [...] 4:00 PM EDT Office Visit SHAKIRA MAN [address] [place] [address] [place] [phone] Karla Harris DO [address] [place] [address] [place] [address] documented as of this encounter Procedures Procedure Name Priority Date/Time Associated Diagnosis Comments ECG 12-LEAD 11/20/2023 12:51 PM EDT documented in this encounter Results * ECG 12-LEAD (11/20/2023 12:51 PM EDT) Anatomical Region Laterality Modality Other 11/20/2023 12:5 1 PM EDT Narrative 11/20/2023 6:36 [place] [address] Electrocardiograph Report Signed Patient: PREMA MOREIRA MR#: [id number] : 1980 Acct:[id number] Age/Sex: 43 / F ADM Date: 11/20/23 Loc: PST Attending Dr: Karla Harris D.O. Ordering Physician: Karla Harris D.O. Date of Service: 11/20/23 Procedure(s): ECG 12 lead Accession Number(s): [id number] cc: [facility] Test Date: 2023-11-20 Pat Name: PREMA MOREIRA Department: Room: - Gender: Female Licensed Tax Consultant: : 1980 Requested By: KARLA HARRIS Order Number: [id number] Reading MD: GONZÁLEZ MAYES Measurements Intervals [place] Rate: 86 P: 63 NM: 143 QRS: 85 QRSD: 96 T: 47 QT: 396 QTc: 475 Interpretive Statements SINUS RHYTHM NONSPECIFIC T-WAVE ABNORMALITY No previous ECG available for comparison Electronically Signed On 11-20-2023 18:36:26 EDT by GONZÁLEZ MAYES Dictated By: González Mayes D.O. Signed By: 11/20/23 1836 DD/ 1251 TD/TT: Animal Shelter Clerk: Procedure Note Radiology, Radiologist, MD - 11/20/2023 The [place] [id number] Electrocardiograph Report Signed Patient: PREMA MOREIRA R#: [id number] : 1980Acct:[id number] Age/Sex: 43 / FADM Date: 11/20/23 Loc: PST Attending Dr: Karla Harris D.O. Ordering Physician: Karla Harris D.O. Date of Service: 11/20/23 Procedure(s): ECG 12 lead Accession Number(s): [id number] cc: [facility] Test Date: 2023-11-20 Pat Name: PREMA MOREIRA Department: Room: - Gender: Female Licensed Tax Consultant: : 1980 Requested By: KARLA HARRIS Order Number: [id number] Reading MD: GONZÁLEZ MAYES Measurements Intervals [place] Rate: 86 P: 63 NM: 143 QRS: 85 QRSD: 96 T: 47 QT: 396 QTc: 475 Interpretive Statements SINUS RHYTHM NONSPECIFIC T-WAVE ABNORMALITY No previous ECG available for comparison Electronically Signed On 11-20-2023 18:36:26 EDT by GONZÁLEZ MAYES Dictated By: González Mayes D.O. Signed By:11/20/23 1836 DD/ 1251 TD/TT: Animal Shelter Clerk: us Karla Harris DO [facility] Final Result documented in this encounter Visit Diagnoses Not on filedocumented in this encounter
--- OUTSIDE RECORDS SUMMARY | 2024-12-21 08:29 | XMS_ITS | Encounter Summary ---
Author Organization [facility] Address [address] [place] [address] Care Team Providers Care Customer Account Technician Name Role Phone Unavailable Primary Care Provider Unavailabl e Encounter Details Date Type Department Care Team (Late Contact Info) Description 08/14/2023 Orders Only NOMLuann MAN [address] [place] [address] [place] [address] Florence Scott LPN 102 [facility] N[place] [facility] Social History Tobacco Use Types Packs/Day Years [...] 4:00 PM EDT Office Visit SHAKIRA MAN [address] [place] [address] [place] [address] Rufus Harrsi DO [address] [facility] Dr [place] [phone] documented as of this encounter Procedures Procedure Name Priority Date/Time Associated Diagnosis Comments PAP SMEAR Routine 08/07/2023 12:00 AM EDT documented in this encounter Results * Pap Smear (08/07/2023 12:00 AM EDT) Swab Cervical swab / Unknown Rufus Harris DO LAB CYTOLOGY ORDERABLES Final Re sult EXTERNAL LAB documented in this encounter Visit Diagnoses Not on filedocumented in this encounter
--- OUTSIDE RECORDS SUMMARY | 2024-12-21 08:30 | XMS_ITS | Encounter Summary ---
Author Organization [facility] Address [address] [place] [address] Care Team Providers Care Grocery Sacker Name Role Phone Unavailable Primary Care Provider Unavailabl e Encounter Details Date Type Department Care Team (Late st Contact Info) Description 07/03/2023 Clinisync Result Encounter NOMS External Department Unsolicited Karla Harris [address] [place], [place] [phone] Social History Tobacco Use Types Packs/Day Years [...] 4:00 PM EDT Office Visit SHAKIRA MAN [address] [place] [address] [place] [phone] Karla Harris DO [address] [place] [address] [place] [address] documented as of this encounter Procedures Procedure Name Priority Date/Time Associated Diagnosis Comments US PELVIS W/ TRANSVAGINAL 07/03/2023 3:23 PM EST documented in this encounter Results * US PELVIS W/ TRANSVAGINAL (07/03/2023 3:23 PM EST) Anatomical Region Laterality Modality Other 07/03/2023 3:23 PM EST Narrative 07/03/2023 3:26 [place] [address] Ultrasound Report Signed Patient: PREMA MOREIRA MR#: [id number] : 1980 Acct:[id number] Age/Sex: 42 / F ADM Date: 07/03/23 Loc: NOM[facility] Attending Dr: Karla Harris D.O. Ordering Physician: Karla Harris D.O. Date of Service: 07/03/23 Procedure(s): US pelvis w/ transvaginal Accession Number(s): [id number] cc: Karla Harris D.O.; Physician,Non-Staff [place] [id number] Patient Name: PREMA MOREIRA MRN: [id number] date: 1980 Sex: F Assigned Patient Location: [facility] Current Patient Location: [facility] Accession/Order Number: [id number] Exam Date: 07/03/2023 14:25 Report Date: 07/03/2023 15:23 At the request of: KARLA HARRIS Procedure: US pelvis w/ transvaginal EXAMINATION: US pelvis w/ transvaginal HISTORY: HEAVY BLEEDING AND IRREGULAR PERIODS COMPARISON: No relevant comparison available. TECHNIQUE: Transabdominal and/or transvaginal sonographic examination was performed as indicated by examination type. FINDINGS: UTERUS: Slightly heterogeneous echotexture. Normal size and contour. Uterus size: 7. 63.6 x 4.5 cm ENDOMETRIUM: Normal homogeneous appearance. Endometrial thickness: 5 mm RIGHT OVARY: Normal size and appearance. Duplex Doppler demonstrates normal waveform and flow; resistive index 0.5. Ovary size: 2.3 x 1.9 x 2.6 cm LEFT OVARY: Contains a 3.6 cm complex cysts versus hypoechoic mass. Duplex Doppler demonstrates normal waveform and flow; resistive index 0.6. Ovary size: 2.7 x 2.4 x 3.6 cm CUL-DE-SAC: Unremarkable. No significant free fluid. BLADDER: Unremarkable. OTHER: None. US/US pelvis w/ transvaginal IMPRESSION: 1. Slightly heterogeneous uterine myometrium of questionable clinical significance. 2. Normal appearance of endometrium. 3. Left ovarian complex cyst versus mass. Complex/hemorrhagic cyst is favored. Consider follow-up ultrasound evaluation in 6 weeks to document regression. Electronically authenticated by: DALLAS SCHWARTZ Date: 07/03/2023 15:23 Dictated By: Dallas Schwartz M.D. Signed By: 07/03/23 1526 DD/ 1523 TD/TT: Interceptor Operator: Procedure Note Radiology, Radiologist, MD - 07/03/2023 [place] [address] Ultrasound Report Signed Patient: PREMA MOREIRA R#: [id number] : 1980Acct:[id number] Age/Sex: 42 / FADM Date: 07/03/23 Loc: NOMS Attending Dr: Karla Harris D.O. Ordering Physician: Karla Harris D.O. Date of Service: 07/03/23 Procedure(s): US pelvis w/ transvaginal Accession Number(s): [id number] cc: Karla Harris D.O.; Physician,Non-Staff Ally The [place] [id number] Patient Name: PREMA MOREIRA MRN: [id number] date: 1980 Sex: F Assigned Patient Location: [facility] Current Patient Location: [facility] Accession/Order Number: [id number] Exam Date: 07/03/2023 14:25 Report Date: 07/03/2023 15:23 At the request of: KARLA HARRIS Procedure: US pelvis w/ transvaginal EXAMINATION: US pelvis w/ transvaginal HISTORY: HEAVY BLEEDING AND IRREGULAR PERIODS COMPARISON: No relevant comparison available. TECHNIQUE: Transabdominal and/or transvaginal sonographic examination was performed as indicated by examination type. FINDINGS: UTERUS: Slightly heterogeneous echotexture. Normal size and contour.Uterus size: 7. 63.6 x 4.5 cm ENDOMETRIUM: Normal homogeneous appearance. Endometrial thickness: 5 mm RIGHT OVARY: Normal size and appearance. Duplex Doppler demonstratesnormal waveform and flow; resistive index 0.5. Ovary size: 2.3 x 1.9 x 2.6 cm LEFT OVARY: Contains a 3.6 cm complex cysts versus hypoechoic mass. Duplex Doppler demonstrates normal waveform and flow; resistive index 0.6. Ovary size: 2.7 x 2.4 x 3.6 cm CUL-DE-SAC: Unremarkable. No significant free fluid. BLADDER: Unremarkable. OTHER: None. US/US pelvis w/ transvaginal IMPRESSION: 1. Slightly heterogeneous uterine myometrium of questionable clinical significance. 2. Normal appearance of endometrium. 3. Left ovarian complex cyst versus mass. Complex/hemorrhagic cyst isfavored. Consider follow-up ultrasound evaluation in 6 weeks to documentregression. Electronically authenticated by: DALLAS SCHWARTZ Date: 07/03/2023 15:23 Dictated By: Dallas Schwartz M.D. Signed By:07/03/23 1526 DD/ 1523 TD/TT: Interceptor Operator: us [facility] DO [facility] Final Result documented in this encounter Visit Diagnoses Not on filedocumented in this encounter
--- OUTSIDE RECORDS SUMMARY | 2024-12-21 08:30 | XMS_ITS | Encounter Summary ---
Author Organization [facility] Address [address] [place] [address] Care Team Providers Care Sole Splitter Name Role Phone Unavailable Primary Care Provider Unavailabl e Encounter Details Date Type Department Care Team (Late st Contact Info) Description 08/14/2023 Clinisync Result Encounter [facility]S External Department Unsolicited Karla Harris [address] [place], [place] [phone] Social History Tobacco Use Types Packs/Day Years [...] 4:00 PM EDT Office Visit SHAKIRA MAN [address] [facility] [place] [phone] Karla Harris DO [address] [place] [address] [place] [address] documented as of this encounter Procedures Procedure Name Priority Date/Time Associated Diagnosis Comments US PELVIS W/ TRANSVAGINAL 08/14/2023 3:29 PM EDT documented in this encounter Results * US PELVIS W/ TRANSVAGINAL (08/14/2023 3:29 PM EDT) Anatomical Region Laterality Modality Other 08/14/2023 3:29 PM EDT Narrative 08/14/2023 3:31 PM EDT The [address] [address] Ultrasound Report Signed Patient: PREMA MOREIRA MR#: [id number] : 1980 Acct:[id number] Age/Sex: 42 / F ADM Date: 08/14/23 Loc: NOMS Attending Dr: Karla Harris D.O. Ordering Physician: Karla Harris D.O. Date of Service: 08/14/23 Procedure(s): US pelvis w/ transvaginal Accession Number(s): [id number] cc: Karla Harris D.O.; Physician,Non-Staff Ally [address] [address] Patient Name: PREMA MOREIRA MRN: [id number] date: 1980 Sex: F Assigned Patient Location: [facility] Current Patient Location: [facility] Accession/Order Number: [id number] Exam Date: 08/14/2023 14:19 Report Date: 08/14/2023 15:29 At the request of: KARLA HARRIS Procedure: US pelvis w/ transvaginal EXAMINATION: US pelvis w/ transvaginal HISTORY: LEFT OVARIAN CYST follow-up COMPARISON: Ultrasound pelvis 07/03/2023 TECHNIQUE: Transabdominal and/or transvaginal sonographic examination was performed as indicated by examination type. FINDINGS: UTERUS: Normal size and appearance. Uterus size: 8.1 x 3.4 x 4.2 cm ENDOMETRIUM: Small 5 x 3 x 2 mm hypoechoic area at anterior junction of endometrium and myometrium, likely blood products since it is new compared to prior study. Endometrial thickness: 7 mm RIGHT OVARY: Normal size and appearance. Duplex Doppler demonstrates normal waveform and flow; resistive index 0.6. Ovary size: 2.6 x 1.6 x 2.4 cm LEFT OVARY: Interval increase in size of the hypoechoic avascular lesion, now 3.3 x 3.1 x 2.2 cm, which could represent complex hemorrhagic cyst or possibly an endometrioma. 2 additional benign-appearing cysts are now present within the ovary, 3.7 cm and 3.3 cm in diameter. Duplex Doppler demonstrates normal waveform and flow; resistive index 0.6. Ovary size: 5.6 x 3.9 x 5.2 cm CUL-DE-SAC: Unremarkable. No significant free fluid. BLADDER: Unremarkable. OTHER: None. US/US pelvis w/ transvaginal IMPRESSION: 1. Interval increase in size of a complex avascular structure within the left ovary suspected represent a hemorrhagic cyst or possible endometrioma. This measures 3.3 cm in diameter on today's study (2.2 cm in maximum diameter on prior study, although this was inadvertently reported as 3.6 cm). Additional follow-up in 6 weeks is recommended to document change versus regression. Electronically authenticated by: DALLAS SCHWARTZ Date: 08/14/2023 15:29 Dictated By: Dallas Schwartz M.D. Signed By: 08/14/23 1531 DD/ 1529 TD/TT: Clinical Trials Specialist: Procedure Note Radiology, Radiologist, MD - 08/14/2023 [place] [address] Ultrasound Report Signed Patient: PREMA MOREIRA R#: [id number] : 1980Acct:[id number] Age/Sex: 42 / FADM Date: 08/14/23 Loc: NOM[facility] Attending Dr: Karla Harris D.O. Ordering Physician: Karla Harris D.O. Date of Service: 08/14/23 Procedure(s): US pelvis w/ transvaginal Accession Number(s): [id number] cc: Karla Harris D.O.; Physician,Non-Staff Ally The [place] [id number] Patient Name: PREMA MOREIRA MRN: [id number] date: 1980 Sex: F Assigned Patient Location: [facility] Current Patient Location: [facility] Accession/Order Number: [id number] Exam Date: 08/14/2023 14:19 Report Date: 08/14/2023 15:29 At the request of: KARLA HARRIS Procedure: US pelvis w/ transvaginal EXAMINATION: US pelvis w/ transvaginal HISTORY: LEFT OVARIAN CYST follow-up COMPARISON: Ultrasound pelvis 07/03/2023 TECHNIQUE: Transabdominal and/or transvaginal sonographic examination was performed as indicated by examination type. FINDINGS: UTERUS: Normal size and appearance. Uterus size: 8.1 x 3.4 x 4.2 cm ENDOMETRIUM: Small 5 x 3 x 2 mm hypoechoic area at anterior junction of endometrium and myometrium, likely blood products since it is new comparedto prior study. Endometrial thickness: 7 mm RIGHT OVARY: Normal size and appearance. Duplex Doppler demonstratesnormal waveform and flow; resistive index 0.6. Ovary size: 2.6 x 1.6 x 2.4 cm LEFT OVARY: Interval increase in size of the hypoechoic avascular lesion,now 3.3 x 3.1 x 2.2 cm, which could represent complex hemorrhagic cyst orpossibly an endometrioma. 2 additional benign-appearing cysts are now presentwithin the ovary, 3.7 cm and 3.3 cm in diameter. Duplex Doppler demonstrates normal waveform and flow; resistive index 0.6. Ovary size: 5.6 x 3.9 x 5.2 cm CUL-DE-SAC: Unremarkable. No significant free fluid. BLADDER: Unremarkable. OTHER: None. US/US pelvis w/ transvaginal IMPRESSION: 1. Interval increase in size of a complex avascular structure within theleft ovary suspected represent a hemorrhagic cyst or possible endometrioma.This measures 3.3 cm in diameter on today's study (2.2 cm in maximum diameteron prior study, although this was inadvertently reported as 3.6 cm).Additional follow-up in 6 weeks is recommended to document change versus regression. Electronically authenticated by: DALLAS SCHWARTZ Date: 08/14/2023 15:29 Dictated By: Dallas Schwartz M.D. Signed By:08/14/23 1531 DD/ 1529 TD/TT: Clinical Trials Specialist: us Karla Steven DO [facility] Final Result documented in this encounter Visit Diagnoses Not on filedocumented in this encounter
--- OUTSIDE RECORDS SUMMARY | 2024-12-21 08:30 | XMS_ITS | Encounter Summary ---
Author Organization [facility] Address [address] [facility] [place] [address] Care Team Providers Care Course Developer Name Role Phone Unavailable Primary Care Provider Unavailabl e Encounter Details Date Type Department Care Team (Late Contact Info) Description 11/27/2023 Abstract [facility] Cheryl MAN [address] [facility] [place] [address] Florence Scott LPN 102 [facility] [place] [facility] Social History Tobacco Use Types Packs/Day Years [...] 4:00 PM EDT Office Visit NOMLuann MAN [address] [place] [address] [place] [address] Rufus Harris DO [address] [facility] [address] [place] [id number] documented as of this encounter Visit Diagnoses Not on filedocumented in this encounter
--- OUTSIDE RECORDS SUMMARY | 2024-12-21 08:30 | XMS_ITS | Encounter Summary ---
Author Organization [facility] Address [address] [facility] [place] [address] Care Team Providers Care Director Oracle Name Role Phone Unavailable Primary Care Provider Unavailabl e Encounter Details Date Type Department Care Team (Late Contact Info) Description 12/06/2023 Abstract [facility] Cheryl MAN [address] [facility] [place] [address] Nadege Solitario LPN 102 [place] [id number] Social History Tobacco Use Types Packs/Day Years [...] 4:00 PM EDT Office Visit SHAKIRA MAN [address] [place] [address] [place] [address] Rufus Harris DO 102 [facility] [address] [place], [facility]11 documented as of this encounter Visit Diagnoses Not on filedocumented in this encounter
--- OUTSIDE RECORDS SUMMARY | 2024-12-21 08:30 | XMS_ITS | Encounter Summary ---
Author Organization [facility] Address [address] [place] [address] Care Team Providers Care Harnessmaker Apprentice Name Role Phone Unavailable Primary Care Provider Unavailabl e Encounter Details Date Type Department Care Team (Late Contact Info) Description 12/02/2023 Abstract [facility] Cheryl MAN [address] [place] [address] [place] [address] Rufus Harris DO [address] [place] [address] Dr [place], [facility] [address] [address] Social History Tobacco Use Types Packs/Day Years [...] 4:00 PM EDT Office Visit SHAKIRA MAN [address] [place] [address] [place] [address] Rufus Harris DO [address] [place] [address] [place], [facility] [address] documented as of this encounter Visit Diagnoses Not on filedocumented in this encounter
--- OUTSIDE RECORDS SUMMARY | 2024-12-21 08:30 | XMS_ITS | Clinical Summary ---
Author Organization [facility] Address [address] [facility], [address] [place] [address] Care Team Providers Care Broth Mixer Name Role Phone Result, Unknown Provider Primary Care Provider U navailable Allergies No known active allergies Medications levonorgestrel-e thinyl estradiol (SEASONALE) 0.15-0.03 MG per tabletIndication s:DUB (dysfunctional uterine bleeding) Take 1 tablet by mouth daily 1 packet 4 10/06/2015 Active Active Problems No known active problems Resolved Problems Problem Noted Date Diagnosed Date Resolved Date Encounter for routine gyneco logical examination 03/31/2012 02/06/2018 Family History Medical History Relation Name Comments High Blood Pressure Mother High Cholesterol Mother Thyroid Disease Mother Relation Name Status Comments Father Alive Mother Alive Social History Tobacco Use Types Packs/Day Years Used Date Smoking Tobacco: Never Alcohol Use Standard Drinks/Week Comments Yes 0 (1 standard drink = 0.6 oz pur e alcohol) Comments No Sex and Gender Information Value Date Recorded Sex Assigned at Not on file Legal Sex Female 11:44 AM EST Gender Identity Not on file Sexual Orientation Not on file Last Filed Vital Signs Vital Sign Reading Time Taken Comments Blood Pressure 132/89 10/06/2015 4:00 PM EDT Pulse 80 10/06/2015 4:00 PM EDT Temperature - - Respiratory Rate 16 10/06/2015 4:00 PM EDT Oxygen Saturation - - Inhaled Oxygen Concentration - - Weight 69.3 kg (152 lb 12.8 oz) 04/19/2014 4:05 PM EST Height 177.8 cm (5' 10 ) 04/19/2014 4:05 PM EST Body Mass Index 21.92 04/19/2014 4:05 PM EST Plan of Treatment Not on file Insurance [employer] Care Teams Broth Mixer Relationship Specialty Start Date End Date Result, Unknown Provider PCP - General 06/23/14
--- OUTSIDE RECORDS SUMMARY | 2024-12-21 08:30 | XMS_ITS | Clinical Summary ---
Author Organization [facility] [employer] [facility] tem Address [id number] [address] [place] [address] Care Team Providers Care Hammer Repairer Name Role Phone Kailee Harrisy Kajal ELIAS Primary Care Provider [phone] Allergies No known active allergies Medications multivit with calcium,iron,min (MULTIPLE VITAMIN, WOMENS ORAL) Take by mouth. Active Active Problems Problem Noted Date Diagnosed Date Left ovarian cyst 12/04/2023 Encounters Date Type Department Care Team Description 10/14/2024 1:30 PM EDT Office Visit [facility] Gynecology Oncology, A Department of [facility] [address] [place] [address] Jason Brown MD Left ovarian cyst (Primary Dx); Endometrioma 10/14/2024 Orders Only [facility] Gynecology Oncology, A Department of [facility] [address] [facility] [address] [place] [address] Casey Valenzuela RN Left ovarian cyst (Primary Dx) 10/14/2024 Travel 10/12/2024 Travel 2024 Telephone [facility] Gynecology Oncology, A Department of [facility] [address] [place] [address] Jason Brown MD Appointment from Last 3 Months Family History Medical History Relation Name Comments Anesthesia problems Neg Hx Social History Tobacco Use Types Packs/Day Years Used Date Smoking Tobacco: Never Smokeless Tobacco: Never Tobacco Cessation:Counseling Given: Not Answered Alcohol Use Standard Drinks/Week Comments Not Asked 0 (1 standard drink = 0.6 oz pur e alcohol) very rare Hunger Screening Answer Date Recorded Within the past 12 months we worried whether our food would run out before we got money to buy more. Never True 03/24/2024 Within the past 12 months th e food we bought just didn't last and we didn't have money to get more. Never True 03/24/2024 Comments Unknown Sex and Gender Information Value Date Recorded Sex Assigned at Not on file Legal Sex Female 7:42 AM EDT Gender Identity Not on file Sexual Orientation Not on file Last Filed Vital Signs Vital Sign Reading Time Taken Comments Blood Pressure 124/78 10/14/2024 1:26 PM EDT Pulse 88 10/14/2024 1:26 PM EDT Temperature 36.6 C (97.9 F) 04/17/2024 1:03 PM EST Respiratory Rate 16 10/14/2024 1:26 PM EDT Oxygen Saturation 100% 10/14/2024 1:26 PM EDT Inhaled Oxygen Concentration - - Weight 73.2 kg (161 lb 6.4 oz) 10/14/2024 1:21 P M EDT Height 175.3 cm (5' 9.02 ) 10/14/2024 1:21 PM ED T Body Mass Index 23.82 10/14/2024 1:21 PM EDT Plan of Treatment Upcoming Encounters Date Type Department Care Team (Late st Contact Info) Description 02/03/2025 9:00 AM EDT Appointment [facility] - Ultrasound [address] [place] [id number] Jason Brown MD [address] [place] [address], [address] [place] [address] 02/17/2025 2:30 PM EDT Office Visit [facility] Gynecology Oncology, A Department of [address] [place] [phone] Jason Brown MD [address] [place] [address], [address] [place] [address] Health Maintenance Due Date Last Done Comments Depression Screening 1990 DTaP,Tdap and Td Vaccines (1 - Tdap) 1997 Influenza Vaccine 01/11/2025 Tobacco Screening 04/03/2025 04/03/2024 Adult BMI Screening 10/14/2025 10/14/2024 Pap Smear 08/13/2027 08/12/2024, 10/06/2015 Medical Devices Not on file Insurance [employer] Care Teams Hammer Repairer Relationship Specialty Start Date End Date Rufus Harris DO [address] [place] [address] [place] [address] PCP - General Obstetrics & Gynecology 10/07/24
--- OUTSIDE RECORDS SUMMARY | 2024-12-21 08:30 | XMS_ITS | Encounter Summary ---
Author Organization [facility] Address [address] [place] [address] Care Team Providers Care Wheel Borer Name Role Phone Unavailable Primary Care Provider Unavailabl e Encounter Details Date Type Department Care Team (Late st Contact Info) Description 11/26/2023 Abstract [facility] [address] [place] [address] Lachelle Vincent LPN Social History Tobacco Use Types Packs/Day Years [...] 4:00 PM EDT Office Visit [facility] [address] [place] [address] [place] [address] Rufus Harris DO [address] [place] [address] Chino Luna, [facility] documented as of this encounter Visit Diagnoses Not on filedocumented in this encounter
--- OUTSIDE RECORDS SUMMARY | 2024-12-21 08:30 | XMS_ITS | Clinical Summary ---
Author Organization [facility] Address [address] [place] [address] Care Team Providers Care Hat And Cap Sewer Name Role Phone No, Physician Primary Care Provider Unavailabl e Allergies No known active allergies Medications No known medications Active Problems Problem Noted Date Diagnosed Date Acute abdomen 11/12/2023 Social History Tobacco Use Types Packs/Day Years Used Date Smoking Tobacco: Unknown Tobacco Cessation:Counseling Given: Not Answered Comments Unknown Sex and Gender Information Value Date Recorded Sex Assigned at Not on file Legal Sex Female 11:54 AM EDT Gender Identity Not on file Sexual Orientation Not on file Last Filed Vital Signs Vital Sign Reading Time Taken Comments Blood Pressure 136/87 11/12/2023 12:03 PM EDT Pulse 106 11/12/2023 12:08 PM EDT Temperature 36.7 C (98.1 F) 11/12/2023 12:03 PM EDT Respiratory Rate 16 11/12/2023 12:0 3 PM EDT Oxygen Saturation 96% 11/12/2023 12: 03 PM EDT Inhaled Oxygen Concentration - - Weight 73.4 kg (161 lb 14.4 oz) 024 12:03 PM EDT Height 175.3 cm (5' 9 ) 11/12/2023 12:0 3 PM EDT Body Mass Index 23.91 11/12/2023 12:03 PM EDT Plan of Treatment Health Maintenance Due Date Last Done Comments CT Colonography 1978 Colonoscopy 1978 Colorectal Cancer Screening/Monitoring 1980 Fecal DNA 1978 Fecal occult blood test (FOBT,FIT) 1978 Flexible sigmoidoscopy 1978 Tetanus: Every 10yrs 1978 Depression Screening/Follow-Up (PHQ-2/9) 1990 HIV Screening 1993 Hepatitis C Screening 1996 HPV/Cotest 2008 Mammogram 06/26/2023 06/26/2022 COVID-19 Vaccine ( season) 2024 Wellness Visit 08/06/2024 08/07/2023, 09/11, 04/19/2014, Additional history exists Influenza Vaccine (#1) 2025 Cervical Cancer Screening 08/06/2026 Pap Smear 08/06/2026 08/07/2023, 06/13, 10/06/2015, Additional history exists Pneumococcal Vaccine: Ped or At-Risk Aged Out No longer eligible based on patient's age to complete this topic Insurance [facility] Care Teams Hat And Cap Sewer Relationship Specialty Start Date End Date No, Physician [facility] PCP - General 11/12/23
--- NOTE | 2024-12-21 08:42 | ED.GENADUL1 ---
HPI HPI - General Adult General Chief complaint: Abdominal Pain Stated complaint: ABDOMINAL PAIN Time Seen by Provider: 12/21/24 08:25 Source: patient Mode of arrival: walk-in Limitations: no limitations History of Present Illness HPI narrative: 44-year-old female presents for abdominal pain. She has had it continuously for 2 days and she points to her entire abdomen. She states that it sort of feels like when she had an ovarian cyst years ago but seems to be different as well. She had a bowel movement last 2 days ago. She had some vomiting on Saturday night. No fever or trauma or dysuria. She does not complain of the back pain or chest pain. Related Data Home Medications ?Medication ?Instructions ?Recorded ?Confirmed multivitamin (Daily Multi-Vitamin 1 tab PO DAILY 11/20/23 12/21/24 tablet) Previous Rx's ?Medication ?Instructions ?Recorded ibuprofen 800 mg tablet 800 mg PO Q8H PRN pain 14 days #40 11/26/23 tabs Allergies Allergy/AdvReac Type Severity Reaction Status Date / Time No Known Drug Allergies Allergy Verified 11/20/23 12:36 Opioid HPI Opioid Management Most Recent Opioid Data: Last Pain Scale 7 Today, 13:47 Last MAR Pain Assessment Today, 13:47 Review of Systems ROS Narrative A ten point review of systems is negative except as noted above. PFSH [facility] Medical History (Updated 12/21/24 @ 13:54 by Dez Jacome MD) Complex ovarian cyst ?N83.299 - Other ovarian cyst, unspecified side (ICD-10) Social History (Updated 11/20/23 @ 12:38 by Yessica Pérez NP) Within the past year, how often did you have a drink containing alcohol: monthly or less Smoking status: Never smoker Non-prescribed substance use: denies use Previous occupational history: [employer] Highest level of school completed/degree received: Associate degree: academic program Little interest or pleasure in doing things: not at all Feeling down, depressed, or hopeless: not at all Exam Narrative Exam Narrative: Nurses note and vital signs reviewed and patient is not hypoxic. General: The patient appears in no acute distress. Skin: Warm, dry, no pallor noted. There is no rash noted. Head: Normocephalic, atraumatic Eye: Normal conjunctiva, no drainage Ears, Nose, Mouth, and Throat: oral mucosa is moist. Nares patent. Cardiovascular: Regular Rate and Rhythm Respiratory: Patient is in no distress, no accessory muscle use, lungs are clear to auscultation, no wheezing, rales or rhonchi Back: non-tender GI: Diffuse tenderness present Musculoskeletal: The patient has no evidence of calf tenderness, no pitting edema, symmetrical pulses noted bilaterally Neurological: A&O, normal speech Psychiatric: Cooperative Constitutional Vital Signs, click to edit/add: Last Vital Signs Temp 98.4 F 12/21/24 08:29 Pulse 117 H 12/21/24 13:20 Resp 39 H 12/21/24 13:20 BP 133/84 12/21/24 13:00 Pulse Ox 97 12/21/24 13:20 O2 Del Method Room Air 12/21/24 08:34 Course Vital Signs Vital signs: Vital Signs Temperature 98.4 F 12/21/24 08:29 Pulse Rate 124 H 12/21/24 08:29 Respiratory Rate 18 12/21/24 08:29 Blood Pressure 141/94 H 12/21/24 08:29 Pulse Oximetry 98 12/21/24 08:29 Oxygen Delivery Method Room Air 12/21/24 08:29 Temperature 98.4 F 12/21/24 08:29 Pulse Rate 117 H 12/21/24 13:20 Respiratory Rate 39 H 12/21/24 13:20 Blood Pressure 133/84 12/21/24 13:00 Pulse Oximetry 97 12/21/24 13:20 Oxygen Delivery Method Room Air 12/21/24 08:34 Medical Decision Making MDM Narrative Medical decision making narrative: Per radiologist the patient appears to have a tubo-ovarian abscess. Case discussed with Dr. Harris who recommends transfer to [facility]. She was covered with cefoxitin and Flagyl. She was also given IV fluids and IV pain medication. I spoke to Dr. Pruitt at [facility] and they are unable to accommodate this patient there. I spoke to Dr. Isidro at [facility] and the patient is excepted there. She is agreeable and stable for transfer. Differential Diagnosis Differential Diagnosis: Ovarian torsion, tubo-ovarian abscess, ovarian cyst, diverticulitis, coliti Lab Data Lab results reviewed: Yes I reviewed the patient's lab results Labs: Lab Results 12/21/24 12/21/24 Range/Units 08:36 08:48 WBC 16.7 H (4.0-11.0) 10^3/uL RBC 4.91 (4.20-5.40) 10^6/uL Hgb 14.5 (12.0-16.0) g/dL Hct 43.5 (36.0-48.0) % MCV 88.6 (81.0-99.0) fL MCH 29.5 (26.7-34.0) pg MCHC 33.3 (29.9-35.2) g/dL RDW 13.8 (11.0-15.0) % Plt Count 248 (150-450) 10^3/uL MPV 9.9 (9.5-13.5) fL Neut % (Auto) 92.7 H (43.0-75.0) % Lymph % (Auto) 4.4 L (20.5-60.0) % [place] % (Auto) 1.9 (1.7-12.0) % Eos % (Auto) 0.2 L (0.9-7.0) % Baso % (Auto) 0.3 (0.2-2.0) % Neut # (Auto) 15.4 H (1.4-6.5) 10^3/uL Lymph # (Auto) 0.7 L (1.2-3.8) 10^3/uL [place] # (Auto) 0.3 (0.3-0.8) 10^3/uL Eos # (Auto) 0.0 (0.0-0.7) 10^3/uL Baso # (Auto) 0.1 (0.0-0.1) 10^3/uL Abs Immat Gran (auto) 0.08 H (0.00-0.03) 10^3/uL Imm/Tot Granulo (auto) 0.5 (0.0-0.5) % ESR 65 H (<=20) mm/hr Sodium 137 (136-145) mmol/L Potassium 3.5 (3.5-5.1) mmol/L Chloride 100 (98-107) mmol/L Carbon Dioxide 23.7 (21.0-32.0) mmol/L Anion Gap 16.8 BUN 18.0 (7.0-18.0) mg/dL Creatinine 0.86 (0.55-1.02) mg/dL Est GFR ( Amer) >60 (>=60 mL/min/1.73m^2) Est GFR (Non-Af Amer) >60 (>=60 mL/min/1.73m^2) BUN/Creatinine Ratio 20.9 Glucose 126 H (74-106) mg/dL Calcium 9.2 (8.5-10.1) mg/dL Total Bilirubin 1.2 H (0.2-1.0) mg/dL Direct Bilirubin 0.3 H (0.0-0.2) mg/dL AST 15 (15-37) U/L ALT 23 (14-59) U/L Alkaline Phosphatase 82 (46-116) U/L C-Reactive Protein 27.52 H (<=0.50) mg/dL Total Protein 8.1 (6.4-8.2) g/dL Albumin 3.4 (3.4-5.0) g/dL Globulin 4.7 g/dL Albumin/Globulin Ratio 0.7 Amylase 18 L (25-115) U/L Lipase 17.0 (16.0-77.0) U/L Serum HCG, Qual Negative (NEGATIVE) Urine Color Dk orange A (YELLOW) Urine Clarity Clear (CLEAR) Urine pH 6.0 (5.0-9.0) Ur Specific Marissa >=1.030 A (1.005-1.025) Urine Protein 100 A (NEG/TRACE) mg/dL Urine Glucose (UA) Negative (NEGATIVE) mg/dL Urine Ketones >=80 A (NEGATIVE) mg/dL Urine Occult Blood Large A (NEGATIVE) Urine Nitrite Negative (NEGATIVE) Urine Bilirubin Moderate A (NEGATIVE) Urine Urobilinogen 1.0 (0.2-1.0) EU/dL Ur Leukocyte Esterase Negative (NEGATIVE) Urine RBC 75-100 A (0-2) #/HPF Urine WBC 5-10 A (NONE SEEN) #/HPF Ur Squamous Epith Cells Moderate A (NONE/RARE) #/LPF Urine Crystals None seen (None Seen) #/HPF Urine Bacteria Moderate A (NONE SEEN) #/HPF Urine Casts Seen A (NONE SEEN) #/LPF Hyaline Casts Moderate Urine Mucus Large A (NONE SEEN) Ur Culture Indicated? Yes-[facility] Imaging Data CT scan - abdomen: Radiologist's impression: ITS Impressions Abdomen/Pelvis CT 12/21/24 09:25 IMPRESSION: Complex appearing adnexal cystic lesions worrisome for possible tubo-ovarian abscess versus pelvic inflammatory disease. This is associated ascites with peritoneal enhancement. This appears be causing secondary/early bowel obstruction with enteritis involving the lower abdominal bowel loops. Impression dictated by: Danilo Celaya M.D. 12/21/2024 10:02 AM Dictation Location: [employer]) Electronically authenticated by: [id number] Y Date: 12/21/2024 10:02 Transvaginal US 12/21/24 11:41 IMPRESSION: Abnormal pelvic ultrasound without evidence of ovarian torsion. Bilateral complex multicystic and solid appearing lesion identified. Consider gynecologic referral. Consider pelvic MRI as warranted. Impression dictated by: Danilo Celaya M.D. 12/21/2024 12:47 PM Dictation Location: [employer] ([employer]) Electronically authenticated by: [id number] Y Date: 12/21/2024 12:47 ECG Data Attestation: I personally reviewed and interpreted this ECG as follows: (EKG on my interpretation shows sinus tachycardia with a rate of 119) Discharge Plan Discharge Chief Complaint: Abdominal Pain Clinical Impression: Tubo-ovarian abscess Patient Disposition: [facility] Time of Disposition Decision: 13:51 Discharge Location: [facility] Condition: Fair Mode of Transportation: EMS
[2024-12-21 08:47] LABS: Hematocrit 43.5 % (36.0-48.0); Hemoglobin 14.5 g/dL (12.0-16.0); Immature Granulocytes Abs Auto 0.08 10^3/uL (0.00-0.03); Immature Granulocytes Pct Auto 0.5 % (0.0-0.5); Lymphocytes Absolute Auto 0.7 10^3/uL (1.2-3.8); Mean Corpuscular HGB Conc 33.3 g/dL (29.9-35.2); Mean Corpuscular Hemoglobin 29.5 pg (26.7-34.0); Mean Corpuscular Volume 88.6 fL (81.0-99.0); Platelet Count 248 10^3/uL (150-450); Red Blood Count 4.91 10^6/uL (4.20-5.40); White Blood Count 16.7 10^3/uL (4.0-11.0)
[2024-12-21 08:57] LABS: Alanine Aminotransferase 23 U/L (14-59); Albumin Globulin Ratio 0.7; Albumin Level 3.4 g/dL (3.4-5.0); Alkaline Phosphatase 82 U/L (46-116); Amylase 18 U/L (25-115); Anion Gap 16.8; Aspartate Amino Transferase 15 U/L (15-37); Blood Urea Nitrogen 18.0 mg/dL (7.0-18.0); Calcium 9.2 mg/dL (8.5-10.1); Carbon Dioxide 23.7 mmol/L (21.0-32.0); Chloride 100 mmol/L (98-107); Estimated GFR (African America >60 (>=60 mL/min/1.73m^2); Estimated GFR (Non-African Ame >60 (>=60 mL/min/1.73m^2); Globulin 4.7 g/dL; Glucose 126 mg/dL (74-106); Lipase 17.0 U/L (16.0-77.0); Potassium 3.5 mmol/L (3.5-5.1); Sodium 137 mmol/L (136-145); Total Protein 8.1 g/dL (6.4-8.2)
[2024-12-21 09:12] LABS: Glucose Urine UA NEGATIVE (NEGATIVE)
--- NOTE | 2024-12-21 09:15 | ECG_ITS ---
The [facility] Test Date: 2024-12-21 Pat Name: PREMA MOREIRA Department: Room: - Gender: Female [employer]: : 1980 Requested By: Order Number: [id number] Reading MD: MADISYN PAINTER M.D. Measurements Intervals [place] Rate: 119 P: 64 MI: 134 QRS: 90 QRSD: 92 T: 11 QT: 334 QTc: 405 Interpretive Statements 1120 Sinus tachycardia 4068 Nonspecific Twave abnormality Abnormal ECG Compared to ECG 11/20/2023 12:51:14 Sinus rhythm no longer present Electronically Signed On 12-22-2024 13:52:39 EDT by MADISYN PAINTER M.D.
[2024-12-21] MEDS: 0.9 % SODIUM CHLORIDE 1,000 ML 1000 ML IV (09:24)
--- NOTE | 2024-12-21 09:25 | CT_ITS ---
The [address] [address] Patient Name: PREMA MOREIRA MRN: [id number] date: 1980 Sex: F Assigned Patient Location: ER Current Patient Location: ER Accession/Order Number: [id number] Exam Date: 12/21/2024 09:43 Report Date: 12/21/2024 10:02 At the request of: KIMI GASCA MD Procedure: CT abdomen pelvis w con CT ABDOMEN AND PELVIS WITH INTRAVENOUS CONTRAST: CLINICAL HISTORY: Diffuse abdominal pain COMPARISON: 11/12/2023 TECHNIQUE: Spiral images were obtained through the abdomen and pelvis following the administration of intravenous contrast. This CT exam was performed using one or more following dose reduction techniques: Automated exposure control, adjustment of the mA and/or kV according to patient size, or use of iterative reconstruction technique. FINDINGS: Lung Bases: [Bibasilar airspace disease and consolidation. Small effusions.] Organs:Liver, spleen, adrenals, pancreas unremarkable. Left renal cyst. Kidneys measure size and enhancement. No hydronephrosis.[ GI: Mural thickening involving the bowel loops within the lower abdomen and pelvis noted worrisome for enteritis. Likely developing small bowel obstruction appendix unremarkable.[ Pelvis:[Grossly unremarkable uterus. Diffusely enlarged adnexal lesions in the right 6.2 x 4.2 cm and the left measuring at least 4.7 x 3.6 cm in size. Peritoneum/Retroperitoneum:Free fluid. No definite drainable fluid collection. Right lower quadrant fluid collection with adjacent peritoneal enhancement noted Abd wall/Bones:No suspicious osseous lesion.[ CT/CT abdomen pelvis w con IMPRESSION: Complex appearing adnexal cystic lesions worrisome for possible tubo-ovarian abscess versus pelvic inflammatory disease. This is associated ascites with peritoneal enhancement. This appears be causing secondary/early bowel obstruction with enteritis involving the lower abdominal bowel loops. Impression dictated by: Danilo Celaya M.D. 12/21/2024 10:02 AM Dictation Location: [place] [address] Electronically authenticated by: [id number] Y Date: 12/21/2024 10:02
[2024-12-21 09:32] LABS: Cast Seen? SEEN #/LPF (NONE SEEN); Crystals Seen? None Seen #/HPF (None Seen); Urine Culture Indicated YES-FRMC
[2024-12-21] MEDS: CEFOXITIN SODIUM 2 GM in 0.9 % SODIUM CHLORIDE 100 ML IV ×2 (11:23→19:39)
--- NOTE | 2024-12-21 11:41 | US_ITS ---
The [address] [address] Patient Name: PREMA MOREIRA MRN: [id number] date: 1980 Sex: F Assigned Patient Location: ER Current Patient Location: ER Accession/Order Number: [id number] Exam Date: 12/21/2024 12:41 Report Date: 12/21/2024 12:47 At the request of: KIMI GASCA MD Procedure: US pelvis transvaginal Transvaginal pelvic ultrasound INDICATION: Abnormal CT, abdominal pain for 2 days COMPARISON: CT abdomen pelvis partial today and pelvic ultrasound 11/12/2023 FINDINGS: Uterus anteverted 7.9 x 4.1 x 4.3 cm in size. Endometrial cystic focus 4 x 4 hours in size. Endometrium 9 mm in thickness. Right ovary 7.2 x 6.0 x 5.0 cm. Multiple hypoechoic anechoic foci identified involving the right ovary largest measuring 5.4 x 2.9 x 2.4 cm. Normal arterial and venous Doppler flow. Left ovary measures 4.1 x 6.1 x 5.4 cm. Unremarkable arterial and venous vascular flow. Complex area 4.4 x 3.6 x 4.1 cm. This is both solid and cystic components. Trace free fluid in cul-de-sac. US/US pelvis transvaginal IMPRESSION: Abnormal pelvic ultrasound without evidence of ovarian torsion. Bilateral complex multicystic and solid appearing lesion identified. Consider gynecologic referral. Consider pelvic MRI as warranted. Impression dictated by: Danilo Celaya M.D. 12/21/2024 12:47 PM Dictation Location: [place] [address] Electronically authenticated by: [id number] Y Date: 12/21/2024 12:47
[2024-12-21] MEDS: DOXYCYCLINE HYCLATE 100 MG in 0.9 % SODIUM CHLORIDE 100 ML IV (12:50)
[2024-12-21] MEDS: MORPHINE SULFATE 4 MG/ML VIAL IV ×3 (13:47→19:36)
[2024-12-21] MEDS: 0.9 % SODIUM CHLORIDE 1,000 ML 200 ML IV ×2 (16:49→23:24)
--- NOTE | 2024-12-21 19:58 | CT_ITS ---
The [address] [address] Patient Name: PREMA MOREIRA MRN: [id number] date: 1980 Sex: F Assigned Patient Location: ER Current Patient Location: ER Accession/Order Number: [id number] Exam Date: 12/21/2024 21:24 Report Date: 12/21/2024 21:32 At the request of: KIMI GASCA MD Procedure: CT angio chest CTA Chest with PE protocol TECHNIQUE: Axial imaging with 2-D and 3-D reconstruction where cc of Omnipaque [address] exam was performed using one or more the following dose reduction techniques: Automated exposure control, adjustment of the MA and/or Kv according to patient size, or use of the iterative reconstruction technique. History: Pain with deep inspiration. COMPARISON: CT of the abdomen and pelvis 12/21/2024 9:43 AM THYROID: Unremarkable TRACHEA AND BRONCHI: Patent ESOPHAGUS: Unremarkable. HEART: Within normal limits PERICARDIAL EFFUSION: None CORONARY ARTERY CALCIFICATION: None MEDIASTINUM: No adenopathy. No pneumoperitoneum. No mediastinal hematoma. PULMONARY AISSATOU: No hilar mass or adenopathy is seen. THORACIC AORTA Unremarkable PULMONARY EMBOLUS: None LUNG NODULE None LUNGS: Posterior basilar consolidation. Atelectasis/pneumonitis. PLEURAL EFFUSION: A tiny bilateral pleural effusions PNEUMOTHORAX: No pneumothorax seen. CHEST WALL: No abnormality AXILLA: Unremarkable BONY STRUCTURES Intact UPPER ABDOMEN: Images of the upper abdomen are noncontributory. CT/CT angio chest IMPRESSION: No acute pulmonary embolus. Basilar atelectasis/pneumonitis. Tiny pleural effusions. Increased findings compared to prior CT examination Impression dictated by: Gabriele Jacobo M.D. 12/21/2024 9:32 PM Dictation Location: [employer] Electronically authenticated by: [id number] Y Date: 12/21/2024 21:32
[2024-12-21] MEDS: HYDROMORPHONE HCL 0.5 MG/0.5 ML SYRINGE IV ×2 (21:09→23:48)
--- NOTE | 2024-12-21 22:20 | PC.NURSE ---
at 1945, ghost writer took pt to the BR as a CGA. She walks slowly but with a steady gait . While she walked the 30 ft back to her room, she became pale, SOB, and tachycardic. She was immediately placed back into bed and the monitor was re-attached and it showed tachycardia with a rate in the 150's, SPO2 at 85% with a perfect waveform, and RR at 34-40. Pt states that she feels as if she can't take a deep breath. MD alerted--to room to assess. CTA of chest done. VS did settle down with rest and O2 at 4 L/NC.
[2024-12-22] VITALS (56 sets, daily range): BP systolic 124–147; BP diastolic 76–92; PULSE 105–123; TEMP 37.4; O2SAT 93–100
[2024-12-22 00:52] LABS: A. calcoaceticus-baumannii Cpx NOT DETECTED (NOT DETECTE); Bacteroides fragilis NOT DETECTED (NOT DETECTE); Candida auris NOT DETECTED (NOT DETECTE); Candida glabrata NOT DETECTED (NOT DETECTE); Enterococcus faecalis NOT DETECTED (NOT DETECTE); Enterococcus faecium NOT DETECTED (NOT DETECTE); Klebsiella aerogenes NOT DETECTED (NOT DETECTE); Klebsiella pneumoniae group NOT DETECTED (NOT DETECTE); Proteus spp. NOT DETECTED (NOT DETECTE); Salmonella spp. NOT DETECTED (NOT DETECTE); Serratia marcescens NOT DETECTED (NOT DETECTE); Staphylococcus epidermidis NOT DETECTED (NOT DETECTE); Staphylococcus lugdunensis NOT DETECTED (NOT DETECTE); Staphylococcus spp. NOT DETECTED (NOT DETECTE); Stenotrophomonas maltophilia NOT DETECTED (NOT DETECTE); Streptococcus pyogenes NOT DETECTED (NOT DETECTE); Streptococcus spp. NOT DETECTED (NOT DETECTE)
[2024-12-22] MEDS: DOXYCYCLINE HYCLATE 100 MG in 0.9 % SODIUM CHLORIDE 100 ML IV (01:17)
[2024-12-22] MEDS: CEFOXITIN SODIUM 2 GM in 0.9 % SODIUM CHLORIDE 100 ML IV ×2 (01:54→07:38)
[2024-12-22] MEDS: HYDROMORPHONE HCL 0.5 MG/0.5 ML SYRINGE IV ×4 (01:59→08:32)
[2024-12-22 02:01] LABS: CTX-M NOT DETECTED (NOT DETECTE); IMP NOT DETECTED (NOT DETECTE); KPC NOT DETECTED (NOT DETECTE); NDM NOT DETECTED (NOT DETECTE); OXA-48-like NOT DETECTED (NOT DETECTE); Source BLOOD; VIM NOT DETECTED (NOT DETECTE); mcr-1 NOT DETECTED (NOT DETECTE)
[2024-12-22 02:04] LABS: Enterobacterales DETECTED (NOT DETECTE)
--- NOTE | 2024-12-22 02:15 | PC.NURSE ---
Blood cultures positive for e-coli and enterobacteralis. Pt remains in the ED. Dr Olsen informed--NNO received. Pt informed as well. Pt again medicated for pain in the lower rib cage . VSS. No further incidence of hypoxia.
--- NOTE | 2024-12-22 02:27 | PC.NURSE ---
[facility] transfer center called us to inform us that they are still waiting on a bed, and that it seems likely that one will be available around 10:00 AM. Pt informed. She stated that her pain is tolerable .
--- NOTE | 2024-12-22 02:56 | PC.NURSE ---
O2 down to 3 L from 4 L--SPO2 at 100% with 4 L.
[2024-12-22] MEDS: 0.9 % SODIUM CHLORIDE 1,000 ML 200 ML IV (04:10)
[2024-12-22 07:17] LABS: Hematocrit 35.9 % (36.0-48.0); Hemoglobin 11.6 g/dL (12.0-16.0); Immature Granulocytes Abs Auto 0.15 10^3/uL (0.00-0.03); Immature Granulocytes Pct Auto 1.2 % (0.0-0.5); Lymphocytes Absolute Auto 0.6 10^3/uL (1.2-3.8); Mean Corpuscular HGB Conc 32.3 g/dL (29.9-35.2); Mean Corpuscular Hemoglobin 29.4 pg (26.7-34.0); Mean Corpuscular Volume 90.9 fL (81.0-99.0); Platelet Count 221 10^3/uL (150-450); Red Blood Count 3.95 10^6/uL (4.20-5.40); White Blood Count 12.7 10^3/uL (4.0-11.0)
[2024-12-23 05:07] LABS: Neisseria gonorrhoeae, NAA Negative (Negative)
== END 2024-12-22 09:15 | disposition short-term general hospital (02) ==
PROVIDERS: Emergency Medicine; Emergency Provider Emergency Medicine
DX: N70.93 Salpingitis and oophoritis, unspecified (principal); R10.84 Generalized abdominal pain; R18.8 Other ascites; R00.0 Tachycardia, unspecified
CPT/HCPCS: 36415; 71275; 74177; 76830; 80048; 80076; 81001; 82150; 83690; 84703; 85025; 85652; 86140; 87040; 87086; 87150; 87186; 87210; 87491; 87591; 93005; 96365; 96366; 96367; 96368; 96375; 96376; 99285; J0694; J1171; J2270; Q9967